=== PATIENT | male | born 1995 | race African-American/Black ===

== ENCOUNTER 2023-02-14 13:59 | Inpatient (IN) | payer BC, MEDICAID, SELFPAY ==
[2023-02-14] VITALS (11 sets, daily range): BP systolic 83–150; BP diastolic 54–113; PULSE 76–138; RESP 11–20; TEMP 36.4–37.1; O2SAT 98–100; BMI 22.8
--- NOTE | ~2023-02-14 | XR_ITS ---
EXAM: XR knee RT min 4V, XR knee LT min 4V DATE: 02/14/2023 14:45 (accession [id number]), 02/14/2023 14:43 (accession [id number]) HISTORY: effusion . COMPARISON: None available. FINDINGS: Severely decreased mineralization. Small left and moderate right volume joint fluid collec tions. Subcutaneous edema. Distal quadriceps thickening on the left. No acute fracture. No dislocatio n. Large area of heterotopic bone formation medial to the distal aspect of the left femur. Ossific de nsity medial to the right medial tibial plateau, likely old avulsion fracture fragment (reverse Segon d lesion). IMPRESSION: Severe osteopenia. Moderate right and small left joint effusions. Distal left quadriceps tendon thickening, may reflect partial tear. Large area of heterotopic bone formation medial to the distal left femur, which can be a source of ch ronic pain. No acute fracture or dislocation. Reviewed, dictated and finalized at location K. IMPRESSION: Severe osteopenia. Moderate right and small left joint effusions. Distal left quadriceps tendon thickening, may reflect partial tear. Large area of heterotopic bone formation medial to the distal left femur, which can be a source of chronic pain. No acute fracture or dislocation.
--- NOTE | ~2023-02-14 | XR_ITS ---
Supine and upright views of the abdomen Clinical history: Abdominal pain Findings: Bowel gas pattern is nonspecific. Moderate stool noted. No evidence for obstruction or free air. No abnormal mass lesion or calcification is seen. Moderate degenerative change of both hips not ed. Impression: Nonspecific bowel gas pattern. Moderate stool could reflect constipation. Reviewed, dictated and finalized at [facility]. Impression: Nonspecific bowel gas pattern. Moderate stool could reflect constipation.
--- NOTE | ~2023-02-14 | CT_ITS ---
EXAMINATION: CT abdomen pelvis w con DATE: 02/14/2023 15:52 INDICATION: sepsis, sacral ulcer TECHNIQUE: Computed tomography (CT) of the abdomen and pelvis was performed with 100 mL Omnipaque-350 intravenous contrast. Automated exposure control and iterative reconstruction technique were employe d. The dose-length product was 472.75 mGy-cm. COMPARISON: None. FINDINGS: Lower thorax: Bibasilar scar/atelectasis Liver: Normal. Biliary/Gallbladder: Cholelithiasis. No bile duct dilation. Pancreas: No mass or duct dilation. Spleen: Normal. Adrenals:No mass. Kidneys: No suspicious mass or obstructing calcification. Mild bilateral pelviectasis and ureterectas is, with urothelial enhancement. Suggestion of mild patchy bilateral renal enhancement. GI tract: Mild distal esophageal and gastric wall edema. No small bowel dilation. The rectum is dilat ed to 6.6 cm by formed stool, without wall thickening or surrounding inflammatory change. Normal appe ndix. Mesentery/Peritoneum: No mass or free air. Mild perihepatic fluid. Moderate fluid in the bilateral pa racolic gutters and presacral space, with mesenteric edema and prominent mesenteric lymph nodes. Retroperitoneum: No mass. Pelvis: Moderate bladder wall edema with urothelial enhancement. The bladder is decompressed by Aguilar catheter. Soft Tissues: Posterior skin defect overlying the left sacrum with surrounding induration that extend s to the bone. Bilateral inguinal lymphadenopathy. Bones: Suggestion of osseous sclerosis deep to the decubitus ulcer, without definite active erosion, although this determination is limited without comparison studies. IMPRESSION: Mild esophagitis/gastritis. Cholelithiasis without significant gallbladder inflammation. CT findings suggestive of cystitis, with ascending infection, mild bilateral hydronephrosis, and bila teral pyelonephritis. Moderate ascites. Left sacral decubitus ulcer, with sclerosis of the adjacent bone which may represent old healed or ch ronic osteomyelitis. Comparison to outside studies would be helpful. Bilateral inguinal lymphadenopathy. Fecal impaction, without CT findings of stercoral colitis. Reviewed, dictated and finalized at location K. IMPRESSION: Mild esophagitis/gastritis. Cholelithiasis without significant gallbladder inflammation. CT findings suggestive of cystitis, with ascending infection, mild bilateral hy dronephrosis, and bilateral pyelonephritis. Moderate ascites. Left sacral decubitus ulcer, with sclerosis of the adjacent bone which may repr esent old healed or chronic osteomyelitis. Comparison to outside studies would be helpful. Bilateral inguinal lymphadenopathy. Fecal impaction, without CT findings of stercoral colitis.
--- NOTE | ~2023-02-14 | US_ITS ---
EXAMINATION: US venous doppler [facility] DATE: 02/16/2023 10:53 INDICATION: Lower limb swelling. TECHNIQUE: Grayscale ultrasound images without and with compression and Doppler ultrasound images of the bilateral lower extremity veins were obtained. COMPARISON: CT abdomen and pelvis 02/14/2023 FINDINGS: The visualized portions of right femoral vein, popliteal vein, peroneal veins, and posterior tibial v eins are patent. The right common femoral vein and profunda femoral vein are obscured by bandages. The visualized portions of left common femoral vein, profunda femoral vein, femoral vein, popliteal v ein, peroneal veins, posterior tibial veins, and greater saphenous vein outflow are patent. IMPRESSION: 1. No deep venous thrombosis. Reviewed, dictated and finalized at location A.
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
--- NOTE | 2023-02-14 14:24 | ECG_ITS ---
Measurements Intervals [place] Rate: 114 P: 56 WV: 100 QRS: 40 QRSD: 86 T: 43 QT: 310 QTc: 427 Interpretive Statements SINUS TACHYCARDIA WITH SHORT [place] INTERVAL POSSIBLE LEFT ATRIAL ENLARGEMENT ABNORMAL ECG NO PREVIOUS ECG AVAILABLE FOR COMPARISON Electronically Signed On 02-15-2023 0:09:40 CDT by Doroteo Shah D.O.
[2023-02-14] MEDS: SODIUM CHLORIDE 0.9% IV 1,000 ML 999 ML IV CONT ×2 (14:37→16:48)
[2023-02-14] MEDS: Please add drug allergy info to patient profile. 1 EACH XX (14:38)
[2023-02-14] MEDS: ONDANSETRON INJ 4 MG/2 ML VIAL IV PUSH ×2 (14:38→20:00)
[2023-02-14 14:49] LABS: Basophils Absolute Auto 0.1 K/mm3 (0.0-0.1); Basophils Percent Auto 0.6 % (0.2-1.2); Eosinophils Absolute Auto 0.1 K/mm3 (0-0.3); Eosinophils Percent Auto 0.4 % (0-4.4); Hematocrit 41.6 % (42.0-52.0); Immature Granulocyte Absolute 0.12 K/mm3 (0.00-0.031); Immature Granulocyte Percent A 0.5 % (0-0.5); Lymphocytes Absolute Auto 1.34 K/mm3 (0.9-3.2); Lymphocytes Percent Auto 5.9 % (18.3-44.2); Mean Corpuscular HGB Conc 33.7 g/dl (32-36); Mean Corpuscular Hemoglobin 22.6 pg (26-34); Mean Corpuscular Volume 67.2 fl (80-100); Mean Platelet Volume 9.3 fl (7.4-10.4); Monocytes Absolute Auto 2.3 K/mm3 (0.1-0.6); Monocytes Percent Auto 10.2 % (2.6-8.5); Neutrophils Absolute Auto 18.6 K/mm3 (1.3-6.7); Neutrophils Percent Auto 82.4 % (45.5-73.1); Nucleated Red Blood Cells Perc 0.1 % (0.0-0.2); Platelet Count Result 513 k/mm3 (150-375); Red Blood Count 6.19 M/mm3 (4.6-6.20); White Blood Count 22.6 K/mm3 (4.5-10.0)
[2023-02-14 14:55] LABS: Appearance Urine Turbid (Clear); Bacteria Urine 4+ /hpf; Bilirubin Urine Negative (Negative); Blood Urine 3+ (Negative); Color Urine Yellow (Yellow); Glucose Urine UA Negative (Negative); Ketones Urine Negative (Negative); Leukocyte Esterase Ur 3+ LEU/UL (Negative); Nitrate Urine Negative (Negative); Non Pathogenic Casts 0-2; Protein Urine 2+ mg/dL (Negative); RBC Urine 51-100 /hpf (0-2); Specific Grav Ur 1.007 (1.001-1.035); Squamous Epithelial Cell Urine None seen /hpf (Few); Urobilinogen Urine 0.2 mg/dL (<2.0); WBC Urine >100 /hpf; pH Urine 5.5 (5.0-9.0)
[2023-02-14 14:58] LABS: Anisocytosis 1+ (NORMAL); Microcytosis 1+ (NORMAL); Platelet Estimate Increased (Adequate); Target Cells 2+ (NORMAL)
[2023-02-14 14:59] LABS: Ovalocytes 1+ (NORMAL); Schistocytes None Seen (NORMAL)
[2023-02-14 15:00] LABS: Add Urine Microscopic? YES; INR 1.1; Prothrombin Time 14.4 Seconds (11.1-14.7)
[2023-02-14 15:01] LABS: Partial Thromboplastin Time 29.3 SECONDS (22.3-36.8)
[2023-02-14 15:07] LABS: Alanine Aminotransferase 24 U/L (6-50); Albumin Level 3.8 g/dL (3.5-5.1); Alkaline Phosphatase 131 U/L (38-126); Anion Gap 7 mmol/L (8-16); Aspartate Amino Transferase 31 U/L (17-59); Bilirubin,Total 0.9 mg/dL (0.2-1.3); Blood Urea Nitrogen 17 mg/dL (9-20); Calcium 9.8 mg/dL (8.4-10.2); Carbon Dioxide 31 mmol/L (22-30); Chloride 99 mmol/L (98-107); Estimated CRCL calculation 102 ml/min; Estimated Glomerular Filt Rate > 60; Glucose 123 mg/dL (65-110); Lipase 33 U/L (23-300); Potassium 4.6 mmol/L (3.4-5.0); Sodium 137 mmol/L (137-145)
[2023-02-14 15:08] LABS: Lactic Acid Reflex 3.1 mmol/L (0.7-2.0)
[2023-02-14] MEDS: PIPERACILLN/TAZ 3.375GM/NS50ML 3.375 GM/50 ML BAG IVPB (15:20)
[2023-02-14] MEDS: ACETAMINOPHEN 500 MG TABLET 1000 MG PO (15:22)
[2023-02-14 15:24] LABS: CRP 14.8 mg/dL (<1.0)
[2023-02-14] MEDS: VANCOMYCIN 1,250 MG/NS 250 ML 1,250 MG/250 ML BAG 166.67 MG IVPB (15:53)
[2023-02-14 15:57] LABS: Influenza A QL RT-PCR Negative (Negative); Influenza B QL RT-PCR Negative (Negative); SARS-CoV-2 RNA PCR Negative (Negative)
[2023-02-14 17:47] LABS: Reflex Lactic Acid Yes or No Add Lactic
[2023-02-14 18:27] LABS: Lactic Acid 1.2 mmol/L (0.7-2.0)
--- NOTE | 2023-02-14 18:49 | ADMGEN ---
This patient, Krista Cook, was admitted to Intensive Care Unit-7 at 1849. Patient/family oriented to hospital policies and general routines including ID bracelet, bed and alarms, visiting hours, pain management, procedures, bathroom and other care routines, personal items, smoking policy, room service/diet, and visiting hours. Information on how to activate the Rapid Response Team has been discussed. Patient/Family are encouraged to report perceived risks to care and to ask questions if they do not understand what they are told or what they should do.
[2023-02-14] MEDS: SODIUM CHLORIDE 0.9% IV 1,000 ML 125 ML IV CONT (20:00)
--- NOTE | 2023-02-14 20:00 | PC.NURSE ---
This patient, Krista Cook, was admitted to Intensive Care Unit-7 @1855. Patient/family oriented to hospital policies and general routines including ID bracelet, bed and alarms, visiting hours, pain management, procedures, bathroom and other care routines, personal items, smoking policy, room service/diet, and visiting hours. Information on how to activate the Rapid Response Team has been discussed. Patient/Family are encouraged to report perceived risks to care and to ask questions if they do not understand what they are told or what they should do.
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
[2023-02-14] MEDS: HYDROcodone/acetaminophen (*CRX) 10-325 MG TABLET 1 TAB PO (21:50)
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
[2023-02-14] MEDS: PREGABALIN (*CRX) 50 MG CAPSULE 100 MG PO (22:51)
[2023-02-14] MEDS: APIXABAN 2.5 MG TABLET PO (22:52)
[2023-02-14] MEDS: BACLOFEN 5 MG TABLET PO (22:52)
[2023-02-14] MEDS: DULoxetine HCL 60 MG CAPSULE.DR PO (22:53)
[2023-02-14] MEDS: MIRTAZAPINE 15 MG TABLET PO (22:55)
[2023-02-14] MEDS: MIDODRINE HCL 2.5 MG TABLET 5 MG PO (23:15)
[2023-02-15] VITALS (35 sets, daily range): BP systolic 64–146; BP diastolic 39–94; PULSE 56–103; RESP 11–18; TEMP 36.3–37.1; O2SAT 95–100; BMI 23.9
--- NOTE | 2023-02-15 | ECHO_ITS ---
Patient Info Name: Krista Cook Age: 27 years : 1995 Gender: Male Ht: 73 in Wt: 181 lbs BSA: 2.06 m2 HR: 89 bpm BP: 67 / 39 mmHg Heart Rhythm: Sinus Rhythm Technical Quality: Fair Exam Date: 02/15/2023 11:29 AM Exam Location: [facility] Pulmonary Patient Status: Inpatient Admit Date: 02/14/2023 Staff Ordering Physician: Rolando Sprague MD Improvement Advisor: Lisa Singh RDCS Attending Provider: Kirk Saxena MD Exam Type: CA echo dop color flow w con Study Info Indications - Lower extremity edema, ascites Complete two-dimensional, color flow and Doppler transthoracic echocardiogram is performed with contrast to opacify the left ventricle and to improve the deliniation of the left ventricle endocardial borders. Contrast/Agitated Saline Contrast/Ag. Saline: Definity Amount: 2.00 ml Administered By: Lisa Singh RDCS Existing IV Access: Yes IV Access Condition: patent with no signs of infiltration Summary 1. Essentially unremarkable 2D/Doppler echocardiogram. 2. No findings which explains ascites/edema. Left Ventricular Outflow Tract Name Value Normal LVOT 2D LVOT Diameter 2.31 cm LVOT Doppler LVOT Peak Gradient 4 mmHg LVOT Mean Gradient 2 mmHg LVOT VTI 17.71 cm LVOT VTI/AV VTI Ratio 0.85 LVOT Stroke Volume 74.11 ml LVOT CO 6.49 l/min LVOT CI 3.15 L/min/m2 Pulmonic Valve Name Value Normal RVOT Doppler RVOT Peak Gradient 2 mmHg PV Doppler PV Peak Gradient 5 mmHg Mitral Valve Name Value Normal MV Doppler MV Decel [place] 910.34 cm/s2 MV PHT 0 s MV Area (PHT) 7.27 cm2 4.00-5.00 MV Diastolic Function MV E Peak Velocity 94.99 cm/s MV A Peak Velocity 85.14 cm/s MV E/A 1.12 MV Decel Time 0 s MV Annular TDI MV E/e' (Septal) 7.75 <=8.00 MV E/e' (Lateral) 8.53 <=8.00 MV E/e' (Average) 8.14 Tricuspid Valve Name Value Normal
--- NOTE | 2023-02-15 00:05 | PC.NURSE ---
hydrocodone administered during downtime for a pain of 8/10.
[2023-02-15] MEDS: oxyCODONE HCL (*CRX) 5 MG TAB IR 10 MG PO (00:17)
[2023-02-15] MEDS: SODIUM CHLORIDE 0.9% IV 1,000 ML 125 ML IV CONT ×3 (03:45→17:37)
[2023-02-15] MEDS: SODIUM CHLORIDE 0.9% IV 1,000 ML 999 ML IV CONT (03:49)
[2023-02-15] MEDS: HYDROcodone/acetaminophen (*CRX) 10-325 MG TABLET 1 TAB PO (04:43)
[2023-02-15] MEDS: VANCOMYCIN 1,250 MG/NS 250 ML 1,250 MG/250 ML BAG 166.67 MG IVPB ×2 (05:00→16:10)
[2023-02-15 07:22] LABS: Basophils Absolute Auto 0.1 K/mm3 (0.0-0.1); Basophils Percent Auto 0.5 % (0.2-1.2); Eosinophils Absolute Auto 0.6 K/mm3 (0-0.3); Eosinophils Percent Auto 4.5 % (0-4.4); Hematocrit 27.9 % (42.0-52.0); Hemoglobin 9.4 g/dL (14.0-18.0); Immature Granulocyte Absolute 0.09 K/mm3 (0.00-0.031); Immature Granulocyte Percent A 0.6 % (0-0.5); Lymphocytes Absolute Auto 1.84 K/mm3 (0.9-3.2); Lymphocytes Percent Auto 12.8 % (18.3-44.2); Mean Corpuscular HGB Conc 33.7 g/dl (32-36); Mean Corpuscular Hemoglobin 22.6 pg (26-34); Mean Corpuscular Volume 67.1 fl (80-100); Mean Platelet Volume 9.5 fl (7.4-10.4); Monocytes Absolute Auto 1.5 K/mm3 (0.1-0.6); Monocytes Percent Auto 10.3 % (2.6-8.5); Neutrophils Absolute Auto 10.2 K/mm3 (1.3-6.7); Neutrophils Percent Auto 71.3 % (45.5-73.1); Platelet Count Result 427 k/mm3 (150-375); Red Blood Count 4.16 M/mm3 (4.6-6.20); Red Cell Distribution Width 18.8 % (11.5-14.5); White Blood Count 14.4 K/mm3 (4.5-10.0)
[2023-02-15 07:25] LABS: Lactic Acid Reflex 0.7 mmol/L (0.7-2.0)
[2023-02-15 07:26] LABS: Alanine Aminotransferase 17 U/L (6-50); Albumin Level 2.6 g/dL (3.5-5.1); Alkaline Phosphatase 79 U/L (38-126); Anion Gap 0 mmol/L (8-16); Aspartate Amino Transferase 22 U/L (17-59); Bilirubin,Total 0.5 mg/dL (0.2-1.3); Blood Urea Nitrogen 12 mg/dL (9-20); Calcium 8.4 mg/dL (8.4-10.2); Carbon Dioxide 28 mmol/L (22-30); Chloride 106 mmol/L (98-107); Estimated CRCL calculation 174 ml/min; Estimated Glomerular Filt Rate > 60; Glucose 94 mg/dL (65-110); Magnesium 1.7 mg/dL (1.6-2.3); Phosphorus 4.3 mg/dL (2.5-4.5); Potassium 3.6 mmol/L (3.4-5.0); Sodium 134 mmol/L (137-145)
[2023-02-15 07:44] LABS: Platelet Estimate Increased (Adequate)
[2023-02-15 07:45] LABS: Anisocytosis 1+ (NORMAL); Poikilocytosis 1+ (NORMAL); Schistocytes None Seen (NORMAL); Target Cells 2+ (NORMAL)
[2023-02-15] MEDS: NOREPINEPHRINE 8 MG/D5W 250 ML 8 MG/250 ML BAG 9.38 MG IV CONT (09:00)
--- NOTE | 2023-02-15 09:50 | WPDPROCEDUR ---
Procedures Central Line Placement Right Femoral: Central Line Date: 02/15/23 Central Line Time: 09:00 Discussed w/ the patient/family/POA,the placement of a central venous catheter, including its clinical necessity/indication & associated potential risks, benifits and alternatives.: Yes The patient/family/POA understand(s) and acknowledge(s) the need to proceed with central venous catheter insertion as an important element of the patient's clinical management.: Yes Consent: I have discussed with the patient the non-emergent placement of a central venous catheter, including its clinical necessity/indication and associated potential risks and complications. The patient and/or surrogate understand(s) and acknowledge(s) the need to proceed with central venous catheter insertion as an important element of the patient's clinical management. Patient initially refused central line and wanted a PICC line. I discussed pros and cons of each and patient later agreed for femoral central venous catheter as he felt that he could not feel pain at that site Time Out Performed: Yes Patient Position: supine Patient placed on monitor/pulse ox: Yes Provider Prep: mask, sterile gown, sterile gloves, Max. sterile barrier precautions, cap and hand hygiene with conventional soap/water or alcohol based hand rub Central line prep: Povidone-Iodine 1% Sterile US Technique with sterile gel/sterile probe covers: Yes Central line lumen inserted: triple Length (cm): 16 Depth of Insertion (cm): 16 Post Procedure: sutured in place, good blood return, all ports aspirated, flushed, capped, transparent dressing and aseptic technique maintained throughout procedure Patient tolerated procedure: well Complications: none
--- NOTE | 2023-02-15 09:52 | WPDCNINT ---
Assessment and Plan Assessment and plan (1) Septic shock: Code(s): A41.9 - Sepsis, unspecified organism; R65.21 - Severe sepsis with septic shock Status: Acute Assessment and Plan: Septic shock secondary to pyelonephritis and possible infection of sacral decubitus ulcer Blood and urine cultures have been sent and are pending Aguilar catheter was changed in the ER Patient has received significant amount IV fluids bolus and will continue IV maintenance fluid Blood pressure still low. Central venous catheter placed and and I started patient on Levophed. Continue Levophed titration to maintain mean arterial pressure Patient does have low blood pressure at baseline and is on midodrine as an outpatient Change Zosyn to meropenem continue vancomycin. General surgery has been consulted patient will be going to operating room for debridement Urology consult IMPRESSION: Mild esophagitis/gastritis. Cholelithiasis without significant gallbladder inflammation. CT findings suggestive of cystitis, with ascending infection, mild bilateral hydronephrosis, and bilateral pyelonephritis. Moderate ascites. Left sacral decubitus ulcer, with sclerosis of the adjacent bone which may represent old healed or chronic osteomyelitis. Comparison to outside studies would be helpful. Bilateral inguinal lymphadenopathy. Fecal impaction, without CT findings of stercoral colitis (2) Constipation: Code(s): K59.00 - Constipation, unspecified Status: Acute Assessment and Plan: Currently NPO for possible surgery MiraLax, bisacodyl (3) Paraplegia: Code(s): G82.20 - Paraplegia, unspecified Status: Acute (4) Pyelonephritis: Code(s): N12 - Tubulo-interstitial nephritis, not specified as acute or chronic Status: Acute Assessment and Plan: See above (5) Decubitus ulcer of sacral region, stage 4: Code(s): L89.154 - Pressure ulcer of sacral region, stage 4 Status: Acute Assessment and Plan: Patient has a large decubitus ulcer which was examined in the ER and is large stage IV unstageable with foul-smelling purulent discharge. General surgery has been consulted Patient is scheduled for debridement in the operating room today (6) Decubitus ulcer, heel: Code(s): L89.609 - Pressure ulcer of unspecified heel, unspecified stage Status: Acute Assessment and Plan: Seen by wound care (7) Lower extremity edema: Code(s): R60.0 - Localized edema Status: Acute Assessment and Plan: Venous Doppler bilateral ordered to rule out DVT Check echo (8) Esophagitis: Code(s): K20.90 - Esophagitis, unspecified without bleeding Status: Acute Assessment and Plan: Start PPI Plan DVT prophylaxis -Carola is on hold Nutrition -NPO Code Status - Full Code Total Critical Care Time - 35 minutes Due to a high probability of clinically significant, life threatening deterioration, the patient required my highest level of preparedness to intervene emergently and I personally spent this critical care time directly and personally managing the patient. This critical care time included obtaining a history; examining the patient; pulse oximetry; ordering and review of studies; arranging urgent treatment with development of a management plan; evaluation of patient's response to treatment; frequent reassessment; and discussions with other providers. It was exclusive of separately billable procedures and treating other patients and teaching time. Please see Assessment and Plan section and the rest of the note for further information on patient assessment and treatment [facility] [facility] Consult Note Consult date: 02/15/23 Reason for consult: Sepsis HPI: Krista Cook is a 27 year old male with past medical history of paraplegia from past in chart Hold 7 months ago who is a resident of [facility] was sent from [facility] by EMS with nausea vomiting and chills. Alex
[2023-02-15] MEDS: PANTOPRAZOLE SODIUM IV 40 MG VIAL IV PUSH ×2 (10:00→19:46)
[2023-02-15] MEDS: ALBUMIN HUMAN 5% 25 GM/500 ML BTL IV CONT (10:00)
[2023-02-15] MEDS: BISACODYL 10 MG SUPPOSITORY RECTAL (10:00)
[2023-02-15] MEDS: MEROPENEM 1 GM in SODIUM CHLORIDE 0.9% IV 100 ML 200 ML IVPB ×3 (10:46→22:50)
[2023-02-15] MEDS: KCL 40 MEQ/WATER 100 ML 100 ML 25 ML IVPB (10:46)
[2023-02-15] MEDS: SILVERGEL (ELTA) 45 ML 1 APPLIC TOPICAL ×2 (11:02→15:02)
[2023-02-15] MEDS: PERFLUTREN LIPID MICROSPHERES 1.5 ML VIAL DILUTED TO 10 ML TOTAL VOLUME IV PUSH (11:50)
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
[2023-02-15] MEDS: MIDODRINE HCL 10 MG TABLET PO ×2 (14:00→17:37)
[2023-02-15] MEDS: CENTRAL LINE FLUSH 10 ML IV PUSH ×2 (15:00→21:16)
[2023-02-15] MEDS: ALBUMIN HUMAN 25% 25 GM/100 ML 100 ML IVPB ×2 (15:00→19:45)
--- NOTE | 2023-02-15 17:36 | PC.NURSE ---
Yayo arthur applied per patient request at 1735 for complaints of shivering. temp 97.5 degrees Fahrenheit.
--- NOTE | 2023-02-15 18:38 | ECG_ITS ---
Measurements Intervals [place] Rate: 85 P: 72 RI: 167 QRS: 49 QRSD: 90 T: 44 QT: 381 QTc: 454 Interpretive Statements SINUS RHYTHM WITH OCCASIONAL ATRIAL PREMATURE COMPLEXES (SOME NONCONDUCTED) COMPARED TO ECG 02/14/2023 14:49:08 THE RATE IS SLOWER Electronically Signed On 02-16-2023 14:02:43 CDT by Isa Melissa M.D.
[2023-02-15 18:50] LABS: Glucose Point of Care 116 mg/dl (65-105)
[2023-02-15] MEDS: ACETAMINOPHEN 325 MG TABLET 650 MG PO (19:11)
[2023-02-15 19:33] LABS: Anion Gap 3 mmol/L (8-16); Blood Urea Nitrogen 9 mg/dL (9-20); Calcium 9.1 mg/dL (8.4-10.2); Carbon Dioxide 31 mmol/L (22-30); Chloride 107 mmol/L (98-107); Estimated CRCL calculation 205 ml/min; Estimated Glomerular Filt Rate > 60; Glucose 102 mg/dL (65-110); Magnesium 1.7 mg/dL (1.6-2.3); Potassium 4.1 mmol/L (3.4-5.0); Sodium 141 mmol/L (137-145)
[2023-02-15] MEDS: MORPHINE SULFATE (*CRX) 4 MG/ML INJ IV PUSH (21:36)
[2023-02-15] MEDS: HYDROcodone/acetaminophen (*CRX) 5-325 MG TABLET 1 TAB PO (23:02)
[2023-02-16] VITALS (11 sets, daily range): BP systolic 93–141; BP diastolic 46–86; PULSE 75–105; RESP 14–21; TEMP 36.7–37.2; O2SAT 97–99
[2023-02-16] MEDS: ALBUMIN HUMAN 25% 25 GM/100 ML 100 ML IVPB ×2 (00:58→08:16)
[2023-02-16] MEDS: SODIUM CHLORIDE 0.9% IV 1,000 ML 125 ML IV CONT (00:58)
[2023-02-16] MEDS: MORPHINE SULFATE (*CRX) 4 MG/ML INJ IV PUSH ×6 (02:00→20:46)
[2023-02-16] MEDS: HYDROcodone/acetaminophen (*CRX) 5-325 MG TABLET 1 TAB PO ×4 (04:07→22:36)
[2023-02-16 04:16] LABS: Hematocrit 23.9 % (42.0-52.0); Mean Corpuscular HGB Conc 33.5 g/dl (32-36); Mean Corpuscular Hemoglobin 22.3 pg (26-34); Mean Corpuscular Volume 66.6 fl (80-100); Mean Platelet Volume 8.9 fl (7.4-10.4); Platelet Count Result 404 k/mm3 (150-375); Red Blood Count 3.59 M/mm3 (4.6-6.20); Red Cell Distribution Width 18.5 % (11.5-14.5); White Blood Count 9.5 K/mm3 (4.5-10.0)
[2023-02-16 04:33] LABS: Alanine Aminotransferase 15 U/L (6-50); Albumin Level 3.3 g/dL (3.5-5.1); Alkaline Phosphatase 69 U/L (38-126); Anion Gap 1 mmol/L (8-16); Aspartate Amino Transferase 22 U/L (17-59); Bilirubin,Total 0.5 mg/dL (0.2-1.3); Blood Urea Nitrogen 9 mg/dL (9-20); Calcium 8.6 mg/dL (8.4-10.2); Carbon Dioxide 29 mmol/L (22-30); Chloride 106 mmol/L (98-107); Estimated CRCL calculation 250 ml/min; Estimated Glomerular Filt Rate > 60; Glucose 97 mg/dL (65-110); Magnesium 1.6 mg/dL (1.6-2.3); Potassium 3.5 mmol/L (3.4-5.0); Sodium 136 mmol/L (137-145)
[2023-02-16] MEDS: MEROPENEM 1 GM in SODIUM CHLORIDE 0.9% IV 100 ML 200 ML IVPB ×3 (04:57→20:39)
[2023-02-16] MEDS: CENTRAL LINE FLUSH 10 ML IV PUSH ×4 (04:58→20:39)
[2023-02-16] MEDS: VANCOMYCIN 1,250 MG/NS 250 ML 1,250 MG/250 ML BAG 166.67 MG IVPB (05:13)
--- NOTE | 2023-02-16 05:15 | PHAR ---
VANCOMYCIN LEVEL 02/16/23 AT 0400 = 10. NO CHANGE TO DOSING. RECHECK LEVEL 0400 02/19/23.
[2023-02-16] MEDS: MIDODRINE HCL 10 MG TABLET PO ×3 (08:16→17:50)
[2023-02-16] MEDS: BISACODYL 10 MG SUPPOSITORY RECTAL (08:16)
[2023-02-16] MEDS: PANTOPRAZOLE SODIUM IV 40 MG VIAL IV PUSH ×2 (08:17→20:39)
[2023-02-16] MEDS: DULoxetine HCL 60 MG CAPSULE.DR PO (08:17)
[2023-02-16] MEDS: POTASSIUM CHLORIDE 20 MEQ ER TABLET 40 MEQ PO (08:17)
[2023-02-16] MEDS: PREGABALIN (*CRX) 50 MG CAPSULE 100 MG PO ×2 (08:17→20:39)
[2023-02-16] MEDS: SILVERGEL (ELTA) 45 ML 1 APPLIC TOPICAL (08:18)
[2023-02-16 08:40] LABS: Immature Reticulocyte Fraction 27.4 % (3.0-15.9); Reticulocyte Hemoglobin Conten 22.8 pg (28.2-35.7); Reticulocytes Absolute 0.06 M/mm3 (0.02-0.1)
[2023-02-16 08:49] LABS: Lactate Dehydrogenase 132 U/L (120-246)
[2023-02-16 08:56] LABS: Transferrin 99 mg/dL (206-381)
[2023-02-16 09:11] LABS: Iron 23 ug/dL (49-181)
[2023-02-16 09:21] LABS: Percent Iron Saturation 11 % (20-50)
--- NOTE | 2023-02-16 09:48 | WPDINTPN ---
Progress Note: A&P Assessment and Plan (1) Septic shock: Code(s): A41.9 - Sepsis, unspecified organism; R65.21 - Severe sepsis with septic shock Status: Acute Assessment and Plan: Septic shock secondary to pyelonephritis Sacral decubitus wound was examined by general surgery and felt not to be infected. Although CT scan suggest chronic osteomyelitis of the bone Blood culture 07/20 is growing Gram-positive cocci in pairs and Gram-negative bacilli urine cultures have been sent and are pending Aguilar catheter was changed in the ER Patient has received significant amount IV fluids bolus and will discontinue IV maintenance fluid Blood pressure improved. 02/15 Central venous catheter placed and and I started patient on Levophed which now has been weaned off. Patient does have low blood pressure at baseline and is on midodrine as an outpatient which will be continued Continue meropenem and vancomycin. General surgery and Urology following IMPRESSION: Mild esophagitis/gastritis. Cholelithiasis without significant gallbladder inflammation. CT findings suggestive of cystitis, with ascending infection, mild bilateral hydronephrosis, and bilateral pyelonephritis. Moderate ascites. Left sacral decubitus ulcer, with sclerosis of the adjacent bone which may represent old healed or chronic osteomyelitis. Comparison to outside studies would be helpful. Bilateral inguinal lymphadenopathy. Fecal impaction, without CT findings of stercoral colitis (2) Constipation: Code(s): K59.00 - Constipation, unspecified Status: Acute Assessment and Plan: Continue MiraLax, bisacodyl (3) Paraplegia: Code(s): G82.20 - Paraplegia, unspecified Status: Acute Assessment and Plan: On rotation bed, with waffle boots on both feet (4) Pyelonephritis: Code(s): N12 - Tubulo-interstitial nephritis, not specified as acute or chronic Status: Acute Assessment and Plan: See above (5) Decubitus ulcer of sacral region, stage 4: Code(s): L89.154 - Pressure ulcer of sacral region, stage 4 Status: Acute Assessment and Plan: Patient has a large decubitus ulcer which was examined by general surgery and not appear to be infected as per general surgeon. No plan for debridement at this time. Recommends continued antibiotic therapy. Patient will eventually need a graft General surgery following (6) Decubitus ulcer, heel: Code(s): L89.609 - Pressure ulcer of unspecified heel, unspecified stage Status: Acute Assessment and Plan: Seen by wound care. Local wound care (7) Lower extremity edema: Code(s): R60.0 - Localized edema Status: Acute Assessment and Plan: Venous Doppler bilateral ordered to rule out DVT Normal echo Compression stocking (8) Esophagitis: Code(s): K20.90 - Esophagitis, unspecified without bleeding Status: Acute Assessment and Plan: Continue PPI Plan DVT prophylaxis -Eliquis will be resumed Nutrition -regular diet with supplements Code Status - Full Code Transfer out of ICU today Subjective Date/time seen: 02/16/23 Overnight events reviewed. Afebrile On room air Off Levophed Tolerating p.o. diet Other vitals acceptable Patient states he did not sleep well overnight and denies any other complaint. He had 2-3 bowel movements. Patient denies fever, chest pain, shortness of breath, cough, nausea vomiting, abdominal pain diarrhea, headache or constipation.. All other systems were reviewed and were negative Review of Systems Review of Systems: All systems reviewed & are unremarkable except as noted in HPI and below (HPI) Exam Narrative: General: Pt is alert awake and in NAD Lungs/Chest: Trachea central Clear BS B/L, No crackles or wheezing. Cardiac: RRR. Normal S1 S2. No murmurs Circulation: Feet are warm Abdomen: Decreased bowel sounds.. Soft. NT. ND. Extremities: Bilateral edema : Fole
[2023-02-16 09:56] LABS: Folic Acid 12.6 ng/mL (2.76->20)
--- NOTE | 2023-02-16 11:51 | PCFNICU ---
ICU Rounding Note: Pt current nutrition is Regular. Last recorded weight is 81.7 kg. Bowel Motility:+BM reported 02/15 Labs Reviewed:Cr 0.4,Na 136, Alb 3.3 Meds Noted:Vancomycin, Suppository, Cymbalta. Skin: R heel: Unstageable, L heel: Stage III, Sacrum: Stage IV Additional Notes: Patient is tolerating regular diet with supplements of Alex BID and Ensure Enlive TID. Agree with diet orders. Following daily in ICU rounds. Monitoring diet advancement; plan of care; intakes, weights, wound healing every 7 days.
--- NOTE | 2023-02-16 16:22 | PM.PNGS ---
Progress Note: A&P Assessment and Plan (1) Decubitus ulcer of sacral region, stage 4: Code(s): L89.154 - Pressure ulcer of sacral region, stage 4 Status: Acute Assessment and Plan: Still has a small amount of non viable tissue at edges. There is a decent granulation base. Stool is being kept out of the wound fairly well. I discussed debridement of the nonviable tissue in the OR and application of allgraft and placement of wound vac to speed healing of the wound. He would like to proceed with doing that. Pt now off pressors so may consider OR on or Wednesday. Subjective Subjective Date/Time Seen: 02/16/23 16:22 Interval history: Pt downgraded to IMU status. No longer on pressors. Still on IV abx. Wound care nurses have assessed the pt's wounds. Sacral decub wound has yellowish drainage but good granulation base. Exam Skin: Other: Sacral decub wound approximately 10 x 5 x 1.5 cm. Good granulation base but some necrotic tissue at edge. No draining pus or cellulitis. Objective Data Vital Signs Vital Signs: Vital Signs - 24 hr 02/15/23 17:35 02/15/23 17:35 02/15/23 17:50 Temperature 36.4 C L 36.4 C L 36.4 C Pulse Rate Respiratory Rate Blood Pressure Pulse Oximetry Oxygen Delivery 02/15/23 18:05 02/15/23 18:20 02/15/23 18:00 Temperature 36.5 C 36.5 C Pulse Rate 61 Respiratory Rate 14 Blood Pressure 146/93 H Pulse Oximetry 98 Oxygen Delivery 02/15/23 18:35 02/15/23 19:03 02/15/23 18:00 Temperature 36.5 C 36.6 C Pulse Rate 85 Respiratory Rate Blood Pressure Pulse Oximetry Oxygen Delivery 02/15/23 19:04 02/15/23 20:00 02/15/23 20:00 Temperature 37.1 C 37.1 C Pulse Rate 78 75 Respiratory Rate 16 Blood Pressure 122/81 134/87 Pulse Oximetry 97 Oxygen Delivery 02/15/23 20:00 02/15/23 21:15 02/15/23 21:00 Temperature 36.9 C 36.9 C Pulse Rate 75 Respiratory Rate 16 Blood Pressure Pulse Oximetry 97 Oxygen Delivery Room Air 02/15/23 20:00 02/15/23 22:00 02/15/23 22:00 Temperature 37.0 C Pulse Rate 86 97 95 Respiratory Rate 18 Blood Pressure 110/64 Pulse Oximetry 97 Oxygen Delivery 02/16/23 00:00 02/16/23 00:00 02/16/23 00:00 Temperature 36.9 C 36.9 C Pulse Rate 101 H 79 Respiratory Rate 16 Blood Pressure 114/63 Pulse Oximetry 97 Oxygen Delivery 02/16/23 00:00 02/16/23 02:00 02/16/23 02:00 Temperature Pulse Rate 79 99 99 Respiratory Rate 16 17 Blood Pressure 112/63 Pulse Oximetry 97 97 Oxygen Delivery Room Air 02/16/23 04:00 02/16/23 04:00 02/16/23 04:00 Temperature 36.9 C 36.9 C Pulse Rate 96 96 Respiratory Rate 18 18 Blood Pressure 93/46 L Pulse Oximetry 98 98 Oxygen Delivery Room Air 02/16/23 04:00 02/16/23 06:00 02/16/23 06:00 Temperature Pulse Rate 99 102 H 103 H Respiratory Rate 21 H Blood Pressure 101/53 L Pulse Oximetry 97 Oxygen Delivery 02/16/23 08:42 02/16/23 08:00 02/16/23 08:00 Temperature 36.8 C Pulse Rate 79 79 Respiratory Rate 14 Blood Pressure 110/64 Pulse Oximetry 97 98 Oxygen Delivery Room Air 02/16/23 10:00 02/16/23 10:00 Temperature Pulse Rate 105 H 105 H Respiratory Rate 21 H Blood Pressure 95/60 L Pulse Oximetry 97 Oxygen Delivery Intake/Output Intake/Output: Intake & Output 02/13/23 02/14/23 02/15/23 02/16/23 23:59 23:59 23:59 23:59 Intake Total 2300 6675 3800 Output Total 4925 1850 Balance 2300 1750 1950 Meds/Results Medications: Active Medications Generic Name Dose Route Start Last Admin Trade Name Freq PRN Reason Stop Dose Admin Acetaminophen 650 mg 02/15/23 18:53 02/15/23 19:11 Acetaminophen 325 Mg Tablet PO 650 mg Q4H PRN Administration Pain or Fever Hydrocodone Bitart/Acetaminophen 1 tab 02/15/23 21:20 02/16/23 14:44 Hydrocodone/Acetaminophen (*Crx) 5-325 Mg Tablet PO 1 tab Q4H PRN
[2023-02-16] MEDS: VANCOMYCIN 1,250 MG/NS 250 ML 1,250 MG/250 ML BAG 166.7 MG IVPB (17:50)
[2023-02-16] MEDS: MIRTAZAPINE 15 MG TABLET PO (20:39)
[2023-02-16] MEDS: APIXABAN 2.5 MG TABLET PO (20:39)
[2023-02-17] VITALS (8 sets, daily range): BP systolic 98–134; BP diastolic 56–90; PULSE 56–90; RESP 16–18; TEMP 36.2–36.4; O2SAT 98–100
--- NOTE | 2023-02-17 00:20 | PC.NURSE ---
This patient, Krista Cook, was transferred to [[id number]] on 02/17/23 at 0015. Personal belongings sent with patient. Report given to [DEEPAK Jameson]. Appropriate documentation sent with patient.
[2023-02-17] MEDS: polyethylene glycoL 3350 17 GM POWD.PACK PO ×2 (00:54→20:16)
[2023-02-17] MEDS: VANCOMYCIN 1,250 MG/NS 250 ML 1,250 MG/250 ML BAG 166.7 MG IVPB ×2 (04:37→16:07)
[2023-02-17 04:44] LABS: Hematocrit 27.2 % (42.0-52.0); Hemoglobin 9.1 g/dL (14.0-18.0); Mean Corpuscular HGB Conc 33.5 g/dl (32-36); Mean Corpuscular Hemoglobin 22.4 pg (26-34); Mean Platelet Volume 8.9 fl (7.4-10.4); Platelet Count Result 448 k/mm3 (150-375); Red Blood Count 4.06 M/mm3 (4.6-6.20); Red Cell Distribution Width 18.5 % (11.5-14.5); White Blood Count 8.2 K/mm3 (4.5-10.0)
[2023-02-17 04:56] LABS: Alanine Aminotransferase 17 U/L (6-50); Albumin Level 3.6 g/dL (3.5-5.1); Alkaline Phosphatase 78 U/L (38-126); Anion Gap 2 mmol/L (8-16); Aspartate Amino Transferase 23 U/L (17-59); Bilirubin,Total 0.3 mg/dL (0.2-1.3); Blood Urea Nitrogen 14 mg/dL (9-20); Calcium 9.3 mg/dL (8.4-10.2); Carbon Dioxide 37 mmol/L (22-30); Chloride 100 mmol/L (98-107); Estimated CRCL calculation 205 ml/min; Estimated Glomerular Filt Rate > 60; Glucose 94 mg/dL (65-110); Magnesium 1.6 mg/dL (1.6-2.3); Potassium 4.3 mmol/L (3.4-5.0); Sodium 139 mmol/L (137-145)
[2023-02-17] MEDS: MEROPENEM 1 GM in SODIUM CHLORIDE 0.9% IV 100 ML 200 ML IVPB ×3 (06:16→20:14)
[2023-02-17] MEDS: CENTRAL LINE FLUSH 10 ML IV PUSH ×5 (06:17→20:26)
[2023-02-17] MEDS: MIDODRINE HCL 10 MG TABLET PO ×3 (10:04→16:07)
[2023-02-17] MEDS: PREGABALIN (*CRX) 50 MG CAPSULE 100 MG PO ×2 (10:04→20:13)
[2023-02-17] MEDS: DULoxetine HCL 60 MG CAPSULE.DR PO (10:05)
[2023-02-17] MEDS: SILVERGEL (ELTA) 45 ML 1 APPLIC TOPICAL (10:05)
[2023-02-17] MEDS: PANTOPRAZOLE SODIUM IV 40 MG VIAL IV PUSH ×2 (10:05→20:13)
[2023-02-17] MEDS: APIXABAN 2.5 MG TABLET PO ×2 (10:05→20:13)
[2023-02-17] MEDS: MORPHINE SULFATE (*CRX) 4 MG/ML INJ IV PUSH ×3 (10:57→20:24)
[2023-02-17] MEDS: BISACODYL 10 MG SUPPOSITORY RECTAL (12:58)
[2023-02-17] MEDS: ACETAMINOPHEN 325 MG TABLET 650 MG PO (12:59)
--- NOTE | 2023-02-17 13:35 | PM.IMPN ---
Progress Note: A&P Assessment and Plan (1) Septic shock: Code(s): A41.9 - Sepsis, unspecified organism; R65.21 - Severe sepsis with septic shock Status: Acute Assessment and Plan: Septic shock secondary to pyelonephritis CT abdomen pelvis positive for cystitis with ascending infection, left sacral decubitus ulcer with sclerosis of adjacent bone which may represent old healed or chronic osteomyelitis, and fecal impaction without findings of some stercoral colitis Sacral decubitus ulcer examined by General surgery and they did not feel like it was infected. Urine culture positive for Pseudomonas and blood culture in 1 bottle positive for Enterococcus and Pseudomonas. Aguilar catheter changed in the ER. IV fluids discontinued. 02/15/2023 central venous catheter placed and started patient on Levophed that has now been weaned off. Patient has low blood pressure at baseline and is on midodrine as an outpatient. Continue meropenem and vancomycin. Discussed case with ID pharmacist. General surgery and urology following. (2) Constipation: Code(s): K59.00 - Constipation, unspecified Status: Acute Assessment and Plan: Continue MiraLax, bisacodyl (3) Paraplegia: Code(s): G82.20 - Paraplegia, unspecified Status: Acute Assessment and Plan: On rotation bed, with waffle boots on both feet (4) Pyelonephritis: Code(s): N12 - Tubulo-interstitial nephritis, not specified as acute or chronic Status: Acute Assessment and Plan: See above (5) Decubitus ulcer of sacral region, stage 4: Code(s): L89.154 - Pressure ulcer of sacral region, stage 4 Status: Acute Assessment and Plan: Patient has a large decubitus ulcer which was examined by general surgery and not appear to be infected as per general surgeon. No plan for debridement at this time. continue antibiotic therapy. Patient will eventually need a graft General surgery following (6) Decubitus ulcer, heel: Qualifiers: Pressure injury stage: unspecified pressure injury stage Code(s): L89.609 - Pressure ulcer of unspecified heel, unspecified stage Status: Acute Assessment and Plan: Seen by wound care. Local wound care (7) Lower extremity edema: Code(s): R60.0 - Localized edema Status: Acute Assessment and Plan: Venous Doppler bilateral ordered to rule out DVT Normal echo Compression stocking (8) Esophagitis: Code(s): K20.90 - Esophagitis, unspecified without bleeding Status: Acute Assessment and Plan: Continue PPI Plan DVT prophylaxis -Eliquis will be resumed Nutrition -regular diet with supplements Code Status - Full Code Transfer out of ICU 02/16/23 Subjective Date/time seen: 02/17/23 13:35 Interval history: Patient doing okay today. He states that he is not felt feverish with body aches or chills since yesterday. He does complain of right arm pain and states that he has brachial plexus injury. Patient has no other complaints at this time. Blood cultures redrawn today waiting for sensitivities to return to adjust antibiotic therapy. Review of Systems Review of Systems: All systems reviewed & are unremarkable except as noted in HPI and below Exam Narrative: GENERAL: Comfortable, no acute distress HENMT: moist mucous membranes EYES: EOM intact b/l RESPIRATORY: clear to auscultation CARDIO: RRR GI: soft, nontender, bowel sounds present SKIN: no rashes EXTREMITIES: Bilateral Waffle boots, weakness and pain in the right arm Objective Data Vital Signs Vital Signs: Vital Signs - 24 hr 02/16/23 16:00 02/16/23 16:00 02/16/23 20:00 Temperature 99 F 98.1 F Pulse Rate 86 86 76 Respiratory Rate 21 H 18 Blood Pressure 133/82 141/86 H Pulse Oximetry 99 98 Oxygen Delivery 02/16/23 20:00 02/16/23 20:00 02/17/23 00:34 Temperature Pulse Rate 76 75 90 Respira
--- NOTE | 2023-02-17 14:21 | PM.PNGS ---
Progress Note: A&P Assessment and Plan (1) Decubitus ulcer of sacral region, stage 4: Code(s): L89.154 - Pressure ulcer of sacral region, stage 4 Status: Acute Assessment and Plan: We will proceed with debridement, application of allograft, and placement of wound VAC. Will plan for this coming Wednesday in the OR at about noon. He will need to keep the wound VAC in place until the following Wednesday at the very least. We will change the wound VAC dressing at that time and reassess the wound. If at all possible it would be best to continue having a wound VAC on the wound when he turns to a care facility. Subjective Subjective Date/Time Seen: 02/17/23 14:21 Interval history: Patient has been moved out of the ICU to [facility] floor. He is otherwise doing well. I discussed with him debridement of the sacral decubitus wound and placement of allograft and wound VAC. He is agreeable to the procedure. Exam Skin: Other: Sacral decubitus wound which is about 10cm in length by 5cm in width by 1.5cm in depth. There is excellent granulation tissue at the base. There is a small amount of nonviable tissue at the edges. There is no stool in the wound. Objective Data Vital Signs Vital Signs: Vital Signs - 24 hr 02/16/23 16:00 02/16/23 16:00 02/16/23 20:00 Temperature 37.2 C 36.7 C Pulse Rate 86 86 76 Respiratory Rate 21 H 18 Blood Pressure 133/82 141/86 H Pulse Oximetry 99 98 Oxygen Delivery 02/16/23 20:00 02/16/23 20:00 02/17/23 00:34 Temperature Pulse Rate 76 75 90 Respiratory Rate 18 Blood Pressure Pulse Oximetry 98 Oxygen Delivery Room Air 02/17/23 00:00 02/17/23 04:00 02/16/23 21:35 Temperature 36.4 C L Pulse Rate 75 71 Respiratory Rate 18 Blood Pressure 134/83 Pulse Oximetry 98 98 Oxygen Delivery Room Air 02/17/23 05:02 02/17/23 09:27 Temperature 36.3 C L 36.4 C Pulse Rate 73 56 L Respiratory Rate 18 16 Blood Pressure 133/90 98/56 L Pulse Oximetry 100 99 Oxygen Delivery Intake/Output Intake/Output: Intake & Output 02/14/23 02/15/23 02/16/2302/17/23 23:59 23:59 23:59 23:59 Intake Total 2304 2986 5450 1360 Output Total 6182 4307 4450 Balance 2300 1750 1150 -3090 Meds/Results Medications: Active Medications Generic Name Dose Route Start Last Admin Trade Name Freq PRN Reason Stop Dose Admin Acetaminophen 650 mg 02/15/23 18:53 02/17/23 12:59 Acetaminophen 325 Mg Tablet PO 650 mg Q4H PRN Administration Pain or Fever Hydrocodone Bitart/Acetaminophen 1 tab 02/15/23 21:20 02/16/23 22:36 Hydrocodone/Acetaminophen (*Crx) 5-325 Mg Tablet PO 1 tab Q4H PRN Administration Pain Rated 4-6 Al Hydrox/Mg Hydrox/Simethicone 30 ml 02/15/23 01:32 Mag Hydrox/Al Hydrox/Simeth 30 Ml Udc PO Q6H PRN Indigestion Apixaban 2.5 mg 02/16/23 21:00 02/17/23 10:05 Apixaban 2.5 Mg Tablet PO 2.5 mg Q12HR SUMAN Administration Bisacodyl 10 mg 02/15/23 09:00 02/17/23 12:58 Bisacodyl 10 Mg Suppository RECTAL 10 mg QAM SUMAN Administration Duloxetine HCl 60 mg 02/16/23 09:00 02/17/23 10:05 Duloxetine Hcl 60 Mg Capsule.Dr PO 60 mg QAM SUMAN Administration Glycerin 1 supp 02/15/23 01:51 Glycerin Adult 1 Supp.Rect RECTAL QAM PRN Constipation Vancomycin HCl 1,250 mg in 250 mls @ 166.667 mls/hr 02/15/23 05:00 02/17/23 06:07 Vancomycin 1,250 Mg/Ns 250 Ml IVPB Infused Q12H SUMAN Infusion Meropenem 1 gm/ Sodium 100 mls @ 200 mls/hr 02/15/23 16:00 02/17/23 06:46 Chloride IVPB Infused Q8HR SUMAN Infusion Midodrine 10 mg 02/15/23 13:00 02/17/23 12:59 Midodrine Hcl 10 Mg Tablet PO 10 mg TID SUMAN Administration Mirtazapine 15 mg 02/16/23 21:00 02/16/23 20:39 Mirtazapine 15 Mg Tablet PO 15 mg HS SUMAN Administration Morphine Sulfate 4 mg 02/15/23 21:20 02/17/23 10:57 Morphine Sulfate (*Crx) 4 Mg/Ml Inj IV PUSH 4 mg Q3H PRN
[2023-02-17] MEDS: MIRTAZAPINE 15 MG TABLET PO (20:13)
[2023-02-18] VITALS (9 sets, daily range): BP systolic 97–157; BP diastolic 57–82; PULSE 64–92; RESP 14–16; TEMP 36.3–36.9; O2SAT 98–100
[2023-02-18] MEDS: MORPHINE SULFATE (*CRX) 4 MG/ML INJ IV PUSH ×5 (00:31→19:51)
[2023-02-18] MEDS: HYDROcodone/acetaminophen (*CRX) 5-325 MG TABLET 1 TAB PO ×2 (01:21→05:32)
[2023-02-18] MEDS: MEROPENEM 1 GM in SODIUM CHLORIDE 0.9% IV 100 ML IVPB ×2 (05:20→14:02)
[2023-02-18] MEDS: VANCOMYCIN 1,250 MG/NS 250 ML 1,250 MG/250 ML BAG 166.7 MG IVPB (05:20)
[2023-02-18] MEDS: CENTRAL LINE FLUSH 10 ML IV PUSH ×3 (05:21→20:30)
[2023-02-18 05:51] LABS: Hematocrit 29.5 % (42.0-52.0); Hemoglobin 9.9 g/dL (14.0-18.0); Mean Corpuscular HGB Conc 33.6 g/dl (32-36); Mean Corpuscular Hemoglobin 22.2 pg (26-34); Mean Corpuscular Volume 66.3 fl (80-100); Mean Platelet Volume 9.5 fl (7.4-10.4); Platelet Count Result 503 k/mm3 (150-375); Red Blood Count 4.45 M/mm3 (4.6-6.20); Red Cell Distribution Width 18.6 % (11.5-14.5); White Blood Count 8.9 K/mm3 (4.5-10.0)
[2023-02-18 05:52] LABS: Alanine Aminotransferase 17 U/L (6-50); Albumin Level 3.7 g/dL (3.5-5.1); Alkaline Phosphatase 76 U/L (38-126); Anion Gap 4 mmol/L (8-16); Aspartate Amino Transferase 23 U/L (17-59); Bilirubin,Total 0.4 mg/dL (0.2-1.3); Blood Urea Nitrogen 19 mg/dL (9-20); Calcium 9.4 mg/dL (8.4-10.2); Carbon Dioxide 36 mmol/L (22-30); Chloride 96 mmol/L (98-107); Estimated CRCL calculation 174 ml/min; Estimated Glomerular Filt Rate > 60; Glucose 92 mg/dL (65-110); Magnesium 1.6 mg/dL (1.6-2.3); Potassium 4.3 mmol/L (3.4-5.0); Sodium 136 mmol/L (137-145)
[2023-02-18] MEDS: APIXABAN 2.5 MG TABLET PO (08:49)
[2023-02-18] MEDS: FERROUS SULFATE 325 MG TABLET DR PO (08:49)
[2023-02-18] MEDS: PANTOPRAZOLE SODIUM IV 40 MG VIAL IV PUSH ×2 (08:49→20:29)
[2023-02-18] MEDS: SILVERGEL (ELTA) 45 ML 1 APPLIC TOPICAL (08:49)
[2023-02-18] MEDS: MIDODRINE HCL 10 MG TABLET PO ×3 (08:49→17:35)
[2023-02-18] MEDS: PREGABALIN (*CRX) 50 MG CAPSULE 100 MG PO ×2 (08:49→20:29)
[2023-02-18] MEDS: DULoxetine HCL 60 MG CAPSULE.DR PO (08:49)
--- NOTE | 2023-02-18 11:22 | PM.PNGS ---
Progress Note: A&P Assessment and Plan (1) Decubitus ulcer of sacral region, stage 4: Code(s): L89.154 - Pressure ulcer of sacral region, stage 4 Status: Acute Assessment and Plan: Ulcer base remains clean. There is a small amount of nonviable tissue at the edges of the skin. Will take the patient to the operating tomorrow for debridement of the wound and application of allograft and placement of wound VAC. Will hold the patient's Eliquis for now and make him NPO at midnight. Subjective Subjective Date/Time Seen: 02/18/23 11:22 Interval history: Patient remains stable on the floor. No acute changes. Exam Skin: Other: Stage IV sacral decubitus wound remains clean and packed. No fecal material within the wound. Small amount of nonviable tissue at the skin edges. Good granulation tissues noted the base. Objective Data Vital Signs Vital Signs: Vital Signs - 24 hr 02/17/23 20:00 02/17/23 20:00 02/17/23 21:57 Temperature Pulse Rate 56 L 56 L 57 L Respiratory Rate 16 Blood Pressure Pulse Oximetry 99 Oxygen Delivery Room Air 02/18/23 00:00 02/18/23 00:00 02/18/23 04:00 Temperature 36.6 C Pulse Rate 71 64 87 Respiratory Rate 14 Blood Pressure 157/82 H Pulse Oximetry 98 Oxygen Delivery 02/18/23 05:00 Temperature 36.3 C L Pulse Rate 89 Respiratory Rate 14 Blood Pressure 97/57 L Pulse Oximetry 100 Oxygen Delivery Intake/Output Intake/Output: Intake & Output 02/15/23 02/16/23 02/17/23 02/18/23 23:59 23:59 23:59 23:59 Intake Total 6675 5450 2610 480 Output Total 7485 4300 7350 1325 Balance 1750 4819 -5084 -076 Meds/Results Medications: Active Medications Generic Name Dose Route Start Last Admin Trade Name Freq PRN Reason Stop Dose Admin Acetaminophen 650 mg 02/15/23 18:53 02/17/23 12:59 Acetaminophen 325 Mg Tablet PO 650 mg Q4H PRN Administration Pain or Fever Hydrocodone Bitart/Acetaminophen 1 tab 02/15/23 21:20 02/18/23 05:32 Hydrocodone/Acetaminophen (*Crx) 5-325 Mg Tablet PO 1 tab Q4H PRN Administration Pain Rated 4-6 Al Hydrox/Mg Hydrox/Simethicone 30 ml 02/15/23 01:32 Mag Hydrox/Al Hydrox/Simeth 30 Ml Udc PO Q6H PRN Indigestion Apixaban 2.5 mg 02/16/23 21:00 02/18/23 08:49 Apixaban 2.5 Mg Tablet PO 2.5 mg Q12HR SUMAN Administration Bisacodyl 10 mg 02/15/23 09:00 02/17/23 12:58 Bisacodyl 10 Mg Suppository RECTAL 10 mg QAM SUMAN Administration Duloxetine HCl 60 mg 02/16/23 09:00 02/18/23 08:49 Duloxetine Hcl 60 Mg Capsule.Dr PO 60 mg QAM SUMAN Administration Ferrous Sulfate 325 mg 02/18/23 09:00 02/18/23 08:49 Ferrous Sulfate [address] PO 325 mg DAILY SUMAN Administration Glycerin 1 supp 02/15/23 01:51 Glycerin Adult 1 Supp.Rect RECTAL QAM PRN Constipation Vancomycin HCl 1,250 mg in 250 mls @ 166.667 mls/hr 02/15/23 05:00 02/18/23 05:20 Vancomycin 1,250 Mg/Ns 250 Ml IVPB 166.7 mls/hr Q12H SUMAN Administration Meropenem 1 gm/ Sodium 100 mls @ 200 mls/hr 02/15/23 16:00 02/18/23 05:20 Chloride IVPB 100 mls/hr Q8HR SUMAN Administration Midodrine 10 mg 02/15/23 13:00 02/18/23 08:49 Midodrine Hcl 10 Mg Tablet PO 10 mg TID SUMAN Administration Mirtazapine 15 mg 02/16/23 21:00 02/17/23 20:13 Mirtazapine 15 Mg Tablet PO 15 mg HS SUMAN Administration Morphine Sulfate 4 mg 02/15/23 21:20 02/18/23 09:48 Morphine Sulfate (*Crx) 4 Mg/Ml Inj IV PUSH 4 mg Q3H PRN Administration Pain Rated 7-10 Ondansetron HCl 4 mg 02/14/23 17:56 02/14/23 20:00 Ondansetron Inj 4 Mg/2 Ml Vial IV PUSH 4 mg Q4H PRN Administration Nausea Pantoprazole Sodium 40 mg 02/15/23 09:00 02/18/23 08:49 Pantoprazole Sodium Iv 40 Mg Vial IV PUSH 40 mg Q12HR SUMAN Administration Polyethylene Glycol 17 gm 02/15/23 01:32 02/17/23 20:16 Polyethylene Glycol 3350 17 Gm Powd.Pack P
--- NOTE | 2023-02-18 14:35 | PM.IMPN ---
Progress Note: A&P Assessment and Plan (1) Septic shock: Code(s): A41.9 - Sepsis, unspecified organism; R65.21 - Severe sepsis with septic shock Status: Acute Assessment and Plan: Septic shock secondary to pyelonephritis CT abdomen pelvis positive for cystitis with ascending infection, left sacral decubitus ulcer with sclerosis of adjacent bone which may represent old healed or chronic osteomyelitis, and fecal impaction without findings of some stercoral colitis Sacral decubitus ulcer examined by General surgery and they did not feel like it was infected. Urine culture positive for Pseudomonas and blood culture in 1 bottle positive for Enterococcus and Pseudomonas. Aguilar catheter changed in the ER. IV fluids discontinued. 02/15/2023 central venous catheter placed and started patient on Levophed that has now been weaned off. Patient has low blood pressure at baseline and is on midodrine as an outpatient. 02/18/23 Sensitivities came back and antibiotics transition to ampicillin and Levaquin. Discussed case with ID pharmacist. Repeat blood cultures drawn on 02/18 General surgery and urology following. (2) Constipation: Code(s): K59.00 - Constipation, unspecified Status: Acute Assessment and Plan: Continue MiraLax, bisacodyl (3) Paraplegia: Code(s): G82.20 - Paraplegia, unspecified Status: Acute Assessment and Plan: On rotation bed, with waffle boots on both feet (4) Pyelonephritis: Code(s): N12 - Tubulo-interstitial nephritis, not specified as acute or chronic Status: Acute Assessment and Plan: See above (5) Decubitus ulcer of sacral region, stage 4: Code(s): L89.154 - Pressure ulcer of sacral region, stage 4 Status: Acute Assessment and Plan: Patient has a large decubitus ulcer which was examined by general surgery and not appear to be infected as per general surgeon. No plan for debridement at this time. continue antibiotic therapy. Patient will eventually need a graft General surgery following (6) Decubitus ulcer, heel: Qualifiers: Pressure injury stage: unspecified pressure injury stage Code(s): L89.609 - Pressure ulcer of unspecified heel, unspecified stage Status: Acute Assessment and Plan: Seen by wound care. Local wound care (7) Lower extremity edema: Code(s): R60.0 - Localized edema Status: Acute Assessment and Plan: Venous Doppler bilateral ordered to rule out DVT Normal echo Compression stocking (8) Esophagitis: Code(s): K20.90 - Esophagitis, unspecified without bleeding Status: Acute Assessment and Plan: Continue PPI Plan DVT prophylaxis -Eliquis will be resumed Nutrition -regular diet with supplements Code Status - Full Code Transfer out of ICU 02/16/23 Subjective Date/time seen: 02/18/23 14:35 Interval history: Patient doing well today. he is still having right arm pain and hand right hand pain. Controlling with IV pain meds right now. He had bowel movement last night. scheduled for sacral wound debridement tomorrow. Review of Systems Review of Systems: All systems reviewed & are unremarkable except as noted in HPI and below Exam Narrative: GENERAL: Comfortable, no acute distress HENMT: moist mucous membranes EYES: EOM intact b/l RESPIRATORY: clear to auscultation CARDIO: RRR GI: Distended, soft, nontender, bowel sounds present SKIN: no rashes EXTREMITIES: Bilateral Waffle boots, weakness and pain in the right arm Objective Data Vital Signs Vital Signs: Vital Signs - 24 hr 02/17/23 20:00 02/17/23 20:00 02/17/23 21:57 Temperature Pulse Rate 56 L 56 L 57 L Respiratory Rate 16 Blood Pressure Pulse Oximetry 99 Oxygen Delivery Room Air 02/18/23 00:00 02/18/23 00:00 02/18/23 04:00 Temperature 98 F Pulse Rate 71 64 87 Respiratory Rate 14 Blood Pressure 157/
[2023-02-18] MEDS: levoFLOXacin 750 MG/D5W 150 ML 750 MG/150 ML BAG 100 MG IVPB (15:53)
[2023-02-18] MEDS: AMPICILLIN 2 GM/NS 100 ML 2 GM/100 ML BAG IVPB ×2 (17:35→20:26)
[2023-02-18] MEDS: MIRTAZAPINE 15 MG TABLET PO (20:29)
[2023-02-18] MEDS: polyethylene glycoL 3350 17 GM POWD.PACK PO (20:29)
[2023-02-19] VITALS (15 sets, daily range): BP systolic 102–129; BP diastolic 61–81; PULSE 80–119; RESP 12–18; TEMP 36.6–38.1; O2SAT 95–100
[2023-02-19] MEDS: SODIUM CHLORIDE 0.9% IV 1,000 ML 100 ML IV CONT (00:10)
[2023-02-19] MEDS: MORPHINE SULFATE (*CRX) 4 MG/ML INJ IV PUSH ×3 (00:12→20:34)
[2023-02-19] MEDS: GLYCERIN ADULT 1 SUPP.RECT RECTAL (00:45)
[2023-02-19] MEDS: AMPICILLIN 2 GM/NS 100 ML 2 GM/100 ML BAG IVPB ×6 (01:16→20:34)
[2023-02-19] MEDS: CENTRAL LINE FLUSH 10 ML IV PUSH (06:16)
[2023-02-19 06:37] LABS: Hematocrit 28.7 % (42.0-52.0); Hemoglobin 9.7 g/dL (14.0-18.0); Mean Corpuscular HGB Conc 33.8 g/dl (32-36); Mean Corpuscular Hemoglobin 22.4 pg (26-34); Mean Corpuscular Volume 66.3 fl (80-100); Mean Platelet Volume 9.1 fl (7.4-10.4); Platelet Count Result 505 k/mm3 (150-375); Red Blood Count 4.33 M/mm3 (4.6-6.20); Red Cell Distribution Width 18.9 % (11.5-14.5); White Blood Count 12.1 K/mm3 (4.5-10.0)
[2023-02-19 06:44] LABS: Alanine Aminotransferase 20 U/L (6-50); Albumin Level 3.7 g/dL (3.5-5.1); Alkaline Phosphatase 85 U/L (38-126); Anion Gap 4 mmol/L (8-16); Aspartate Amino Transferase 29 U/L (17-59); Bilirubin,Total 0.3 mg/dL (0.2-1.3); Blood Urea Nitrogen 20 mg/dL (9-20); Carbon Dioxide 33 mmol/L (22-30); Chloride 99 mmol/L (98-107); Estimated CRCL calculation 205 ml/min; Estimated Glomerular Filt Rate > 60; Glucose 111 mg/dL (65-110); Magnesium 1.7 mg/dL (1.6-2.3); Potassium 4.2 mmol/L (3.4-5.0); Sodium 136 mmol/L (137-145)
[2023-02-19 07:23] LABS: Vancomycin Trough 5.7 ug/mL (10.0-20.0)
[2023-02-19] MEDS: DULoxetine HCL 60 MG CAPSULE.DR PO (08:30)
[2023-02-19] MEDS: PREGABALIN (*CRX) 50 MG CAPSULE 100 MG PO ×2 (08:30→20:34)
[2023-02-19] MEDS: BISACODYL 10 MG SUPPOSITORY RECTAL (08:30)
[2023-02-19] MEDS: FERROUS SULFATE 325 MG TABLET DR PO (08:30)
[2023-02-19] MEDS: MIDODRINE HCL 10 MG TABLET PO ×3 (08:30→17:15)
[2023-02-19] MEDS: PANTOPRAZOLE SODIUM IV 40 MG VIAL IV PUSH ×2 (08:30→20:34)
[2023-02-19] MEDS: SILVERGEL (ELTA) 45 ML 1 APPLIC TOPICAL (08:31)
--- NOTE | 2023-02-19 11:04 | WPDHPUPDATE1 ---
History and Physical Update Update Date/Time: 02/19/23 11:04 History and Physical has been reviewed, including an updated exam of the patient. There are NO changes in the patient's condition. Risks, benefits, and alternatives have been discussed and questions answered. Patient agrees to proceed with procedure.
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
[2023-02-19] MEDS: LACTATED RINGERS 1,000 ML 30 ML IV CONT (11:18)
[2023-02-19] MEDS: fentaNYL CITRATE INJ (*CRX) 100 MCG/2 ML VIAL 25 MCG IV PUSH (11:18)
--- NOTE | 2023-02-19 13:21 | PCOTNOTE ---
Attempted OT eval at 13:21, patient off unit for procedure. Will follow.
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
--- NOTE | 2023-02-19 14:22 | PM.IMPN ---
Progress Note: A&P Assessment and Plan (1) Septic shock: Code(s): A41.9 - Sepsis, unspecified organism; R65.21 - Severe sepsis with septic shock Status: Acute Assessment and Plan: Septic shock secondary to pyelonephritis CT abdomen pelvis positive for cystitis with ascending infection, left sacral decubitus ulcer with sclerosis of adjacent bone which may represent old healed or chronic osteomyelitis, and fecal impaction without findings of some stercoral colitis Sacral decubitus ulcer examined by General surgery and they did not feel like it was infected. Urine culture positive for Pseudomonas and blood culture in 1 bottle positive for Enterococcus and Pseudomonas. Aguilar catheter changed in the ER. IV fluids discontinued. 02/15/2023 central venous catheter placed and started patient on Levophed that has now been weaned off. Patient has low blood pressure at baseline and is on midodrine as an outpatient. 02/18/23 Sensitivities came back and antibiotics transition to ampicillin and Levaquin. Discussed case with ID pharmacist. Repeat blood cultures drawn on 02/18 General surgery and urology following. (2) Constipation: Code(s): K59.00 - Constipation, unspecified Status: Acute Assessment and Plan: Continue MiraLax, bisacodyl (3) Paraplegia: Code(s): G82.20 - Paraplegia, unspecified Status: Acute Assessment and Plan: On rotation bed, with waffle boots on both feet (4) Pyelonephritis: Code(s): N12 - Tubulo-interstitial nephritis, not specified as acute or chronic Status: Acute Assessment and Plan: See above (5) Decubitus ulcer of sacral region, stage 4: Code(s): L89.154 - Pressure ulcer of sacral region, stage 4 Status: Acute Assessment and Plan: Patient has a large decubitus ulcer which was examined by general surgery and not appear to be infected as per general surgeon. No Patient underwent debridement on 02/19/2023 sacral wound. continue antibiotic therapy. Patient will eventually need a graft General surgery following (6) Decubitus ulcer, heel: Qualifiers: Pressure injury stage: unspecified pressure injury stage Code(s): L89.609 - Pressure ulcer of unspecified heel, unspecified stage Status: Acute Assessment and Plan: Seen by wound care. Local wound care (7) Lower extremity edema: Code(s): R60.0 - Localized edema Status: Acute Assessment and Plan: Venous Doppler bilateral ordered to rule out DVT Normal echo Compression stocking (8) Esophagitis: Code(s): K20.90 - Esophagitis, unspecified without bleeding Status: Acute Assessment and Plan: Continue PPI Plan DVT prophylaxis -Eliquis will be resumed Nutrition -regular diet with supplements Code Status - Full Code Transfer out of ICU 02/16/23 Subjective Date/time seen: 02/19/23 14:22 Interval history: Patient doing well today with no new complaints. Patient underwent debridement of sacral wound today. Continue local wound care. Continue to monitor white count. Review of Systems Review of Systems: All systems reviewed & are unremarkable except as noted in HPI and below Exam Narrative: GENERAL: Comfortable, no acute distress HENMT: moist mucous membranes EYES: EOM intact b/l RESPIRATORY: clear to auscultation CARDIO: RRR GI: Distended, soft, nontender, bowel sounds present SKIN: no rashes EXTREMITIES: Bilateral Waffle boots, weakness and pain in the right arm Objective Data Vital Signs Vital Signs: Vital Signs - 24 hr 02/18/23 14:30 02/18/23 16:00 02/18/23 20:46 Temperature 97.4 F L 98.4 F Pulse Rate 89 92 86 Respiratory Rate 14 16 Blood Pressure 103/70 104/68 Pulse Oximetry 99 99 Oxygen Delivery Oxygen Flow Rate 02/18/23 20:00 02/19/23 00:00 02/19/23 04:00 Temperature Pulse Rate 88 96 119 H Respiratory Rate Blood Pressure
[2023-02-19] MEDS: levoFLOXacin 750 MG/D5W 150 ML 750 MG/150 ML BAG 100 MG IVPB (16:00)
[2023-02-19] MEDS: APIXABAN 2.5 MG TABLET PO (20:34)
[2023-02-19] MEDS: MIRTAZAPINE 15 MG TABLET PO (20:34)
[2023-02-19] MEDS: polyethylene glycoL 3350 17 GM POWD.PACK PO (21:35)
[2023-02-20] VITALS (11 sets, daily range): BP systolic 113–120; BP diastolic 72–81; PULSE 64–101; RESP 14–17; TEMP 36.3–36.6; O2SAT 97–99
[2023-02-20] MEDS: MORPHINE SULFATE (*CRX) 4 MG/ML INJ IV PUSH ×6 (00:38→21:09)
[2023-02-20] MEDS: AMPICILLIN 2 GM/NS 100 ML 2 GM/100 ML BAG IVPB ×6 (01:05→20:30)
[2023-02-20 08:53] LABS: Haptoglobin 242 mg/dL (43-212)
[2023-02-20] MEDS: PANTOPRAZOLE SODIUM IV 40 MG VIAL IV PUSH ×2 (09:47→20:31)
[2023-02-20] MEDS: PREGABALIN (*CRX) 50 MG CAPSULE 100 MG PO ×2 (09:47→20:31)
[2023-02-20] MEDS: DULoxetine HCL 60 MG CAPSULE.DR PO (09:47)
[2023-02-20] MEDS: FERROUS SULFATE 325 MG TABLET DR PO (09:47)
[2023-02-20] MEDS: MIDODRINE HCL 10 MG TABLET PO ×3 (09:47→18:02)
[2023-02-20] MEDS: BISACODYL 10 MG SUPPOSITORY RECTAL (09:48)
[2023-02-20] MEDS: APIXABAN 2.5 MG TABLET PO ×2 (09:48→20:31)
[2023-02-20] MEDS: SILVERGEL (ELTA) 45 ML 1 APPLIC TOPICAL (09:49)
[2023-02-20] MEDS: polyethylene glycoL 3350 17 GM POWD.PACK PO ×2 (09:53→20:30)
--- NOTE | 2023-02-20 10:08 | PCOTNOTE ---
Attempted OT evaluation; pt. refused stating he does not want therapy at this time. Will attempt again as able
[2023-02-20 12:14] LABS: Hematocrit 27.7 % (42.0-52.0); Hemoglobin 9.5 g/dL (14.0-18.0); Mean Corpuscular HGB Conc 34.3 g/dl (32-36); Mean Corpuscular Hemoglobin 22.7 pg (26-34); Mean Corpuscular Volume 66.1 fl (80-100); Platelet Count Result 487 k/mm3 (150-375); Red Blood Count 4.19 M/mm3 (4.6-6.20); Red Cell Distribution Width 18.7 % (11.5-14.5); White Blood Count 14.3 K/mm3 (4.5-10.0)
[2023-02-20 12:25] LABS: Alanine Aminotransferase 26 U/L (6-50); Albumin Level 3.8 g/dL (3.5-5.1); Alkaline Phosphatase 87 U/L (38-126); Anion Gap 7 mmol/L (8-16); Aspartate Amino Transferase 25 U/L (17-59); Bilirubin,Total 0.3 mg/dL (0.2-1.3); Blood Urea Nitrogen 16 mg/dL (9-20); Calcium 9.1 mg/dL (8.4-10.2); Carbon Dioxide 30 mmol/L (22-30); Chloride 100 mmol/L (98-107); Estimated CRCL calculation 250 ml/min; Estimated Glomerular Filt Rate > 60; Glucose 132 mg/dL (65-110); Magnesium 1.9 mg/dL (1.6-2.3); Potassium 3.8 mmol/L (3.4-5.0); Sodium 137 mmol/L (137-145)
--- NOTE | 2023-02-20 12:29 | PM.IMPN ---
Progress Note: A&P Assessment and Plan (1) Septic shock: Code(s): A41.9 - Sepsis, unspecified organism; R65.21 - Severe sepsis with septic shock Status: Acute Assessment and Plan: Septic shock secondary to pyelonephritis CT abdomen pelvis positive for cystitis with ascending infection, left sacral decubitus ulcer with sclerosis of adjacent bone which may represent old healed or chronic osteomyelitis, and fecal impaction without findings of some stercoral colitis Sacral decubitus ulcer examined by General surgery and they did not feel like it was infected. Urine culture positive for Pseudomonas and blood culture in 1 bottle positive for Enterococcus and Pseudomonas. Aguilar catheter changed in the ER. IV fluids discontinued. 02/15/2023 central venous catheter placed and started patient on Levophed that has now been weaned off. Patient has low blood pressure at baseline and is on midodrine as an outpatient. 02/18/23 Sensitivities came back and antibiotics transition to ampicillin and Levaquin. Discussed case with ID pharmacist. Repeat blood cultures drawn on 02/18 General surgery and urology following. 02/20/23 white blood cell count up to 14.3. This could be reactive from debridement yesterday. Will continue to monitor. (2) Constipation: Code(s): K59.00 - Constipation, unspecified Status: Acute Assessment and Plan: Continue MiraLax, bisacodyl (3) Paraplegia: Code(s): G82.20 - Paraplegia, unspecified Status: Acute Assessment and Plan: On rotation bed, with waffle boots on both feet (4) Pyelonephritis: Code(s): N12 - Tubulo-interstitial nephritis, not specified as acute or chronic Status: Acute Assessment and Plan: See above (5) Decubitus ulcer of sacral region, stage 4: Code(s): L89.154 - Pressure ulcer of sacral region, stage 4 Status: Acute Assessment and Plan: Patient has a large decubitus ulcer which was examined by general surgery and not appear to be infected as per general surgeon. No Patient underwent debridement on 02/19/2023 sacral wound. continue antibiotic therapy. Patient will eventually need a graft General surgery following (6) Decubitus ulcer, heel: Qualifiers: Pressure injury stage: unspecified pressure injury stage Code(s): L89.609 - Pressure ulcer of unspecified heel, unspecified stage Status: Acute Assessment and Plan: Seen by wound care. Local wound care (7) Lower extremity edema: Code(s): R60.0 - Localized edema Status: Acute Assessment and Plan: Venous Doppler bilateral ordered to rule out DVT Normal echo Compression stocking (8) Esophagitis: Code(s): K20.90 - Esophagitis, unspecified without bleeding Status: Acute Assessment and Plan: Continue PPI Plan DVT prophylaxis -Eliquis will be resumed Nutrition -regular diet with supplements Code Status - Full Code Transfer out of ICU 02/16/23 Subjective Date/time seen: 02/20/23 12:29 Interval history: Patient doing well today with no new complaints. Review of Systems Review of Systems: All systems reviewed & are unremarkable except as noted in HPI and below Exam Narrative: GENERAL: Comfortable, no acute distress HENMT: moist mucous membranes EYES: EOM intact b/l RESPIRATORY: clear to auscultation CARDIO: RRR GI: Distended, soft, nontender, bowel sounds present SKIN: no rashes EXTREMITIES: Bilateral Waffle boots, weakness and pain in the right arm Objective Data Vital Signs Vital Signs: Vital Signs - 24 hr 02/19/23 12:39 02/19/23 12:55 02/19/23 13:10 Temperature 99.6 F Pulse Rate 90 85 90 Respiratory Rate 15 12 14 Blood Pressure 118/71 105/64 114/76 Pulse Oximetry 100 100 95 Oxygen Delivery Simple Face Mask Simple Face Mask Room Air Oxygen Flow Rate 8 8 02/19/23 13:25 02/19/23 14:35 02/19/23 14:50 Temperature 98.1 F 98
--- NOTE | 2023-02-20 13:16 | WPDANESPN ---
Anes - Prog Note Post-Op Date/Time: 02/20/23 13:16 Cardiovascular status: normal Respiratory status: normal Airway patency: baseline Mental status: baseline Post-Op hydration status: normal Vital Signs: Last Vital Signs Temp 36.6 C 02/20/23 10:00 Pulse 70 02/20/23 10:00 Resp 17 02/20/23 10:00 BP 118/74 02/20/23 10:00 Pulse Ox 98 02/20/23 10:00 O2 Del Method Room Air 02/19/23 20:00 O2 Flow Rate 8 02/19/23 12:55 Pain Score (VAS): Patient asleep, no nonverbal signs of pain present at this time. I/O: Intake & Output 02/19/23 02/20/23 02/20/23 23:59 07:59 15:59 Intake Total 650 800 480 Output Total 1900 2100 Balance -1250 -1300 480 Laboratory Tests 02/20/23 12:09 02/20/23 12:09 02/16/23 02/20/23 08:26 12:09 WBC 14.3 H RBC 4.19 L Hgb 9.5 L Hct 27.7 L MCV 66.1 L MCH 22.7 L MCHC 34.3 RDW 18.7 H Plt Count 487 H MPV 9.0 Haptoglobin 242 H Sodium 137 Potassium 3.8 Chloride 100 Carbon Dioxide 30 Anion Gap 7 L BUN 16 Creatinine 0.40 L Estim Creat Clear Calc 250 Estimated GFR > 60 Glucose 132 H Calcium 9.1 Magnesium 1.9 Total Bilirubin 0.3 AST 25 ALT 26 Alkaline Phosphatase 87 Total Protein 7.0 Albumin 3.8 Microbiology 02/18/23 06:01 Blood Blood Culture - Preliminary 02/18/23 06:01 Blood Blood Culture - Preliminary Post-procedural complaints: none Patient Feedback: Patient satisfied with anesthetic care.
[2023-02-20] MEDS: levoFLOXacin 750 MG/D5W 150 ML 750 MG/150 ML BAG 100 MG IVPB (18:01)
[2023-02-20] MEDS: MIRTAZAPINE 15 MG TABLET PO (20:31)
[2023-02-21] VITALS (13 sets, daily range): BP systolic 93–212; BP diastolic 50–118; PULSE 67–103; RESP 16–20; TEMP 36.8–37.1; O2SAT 95–99
[2023-02-21] MEDS: AMPICILLIN 2 GM/NS 100 ML 2 GM/100 ML BAG IVPB ×6 (01:36→20:33)
[2023-02-21] MEDS: MORPHINE SULFATE (*CRX) 4 MG/ML INJ IV PUSH ×5 (05:27→23:08)
[2023-02-21 09:03] LABS: Basophils Absolute Auto 0.1 K/mm3 (0.0-0.1); Basophils Percent Auto 0.9 % (0.2-1.2); Eosinophils Absolute Auto 0.4 K/mm3 (0-0.3); Eosinophils Percent Auto 2.8 % (0-4.4); Hemoglobin 9.8 g/dL (14.0-18.0); Immature Granulocyte Absolute 0.07 K/mm3 (0.00-0.031); Immature Granulocyte Percent A 0.6 % (0-0.5); Lymphocytes Absolute Auto 3.76 K/mm3 (0.9-3.2); Lymphocytes Percent Auto 30.3 % (18.3-44.2); Mean Corpuscular HGB Conc 33.8 g/dl (32-36); Mean Corpuscular Hemoglobin 22.3 pg (26-34); Mean Corpuscular Volume 66.1 fl (80-100); Mean Platelet Volume 8.8 fl (7.4-10.4); Monocytes Absolute Auto 1.4 K/mm3 (0.1-0.6); Monocytes Percent Auto 11.1 % (2.6-8.5); Neutrophils Absolute Auto 6.8 K/mm3 (1.3-6.7); Neutrophils Percent Auto 54.3 % (45.5-73.1); Nucleated Red Blood Cells Perc 0.2 % (0.0-0.2); Platelet Count Result 535 k/mm3 (150-375); Red Blood Count 4.39 M/mm3 (4.6-6.20); Red Cell Distribution Width 18.7 % (11.5-14.5); White Blood Count 12.4 K/mm3 (4.5-10.0)
[2023-02-21 09:17] LABS: Lactic Acid Reflex 1.1 mmol/L (0.7-2.0)
[2023-02-21 09:18] LABS: Alanine Aminotransferase 46 U/L (6-50); Albumin Level 3.7 g/dL (3.5-5.1); Alkaline Phosphatase 99 U/L (38-126); Anion Gap 7 mmol/L (8-16); Aspartate Amino Transferase 38 U/L (17-59); Bilirubin,Total 0.3 mg/dL (0.2-1.3); Blood Urea Nitrogen 16 mg/dL (9-20); Calcium 9.3 mg/dL (8.4-10.2); Carbon Dioxide 31 mmol/L (22-30); Chloride 98 mmol/L (98-107); Estimated CRCL calculation 205 ml/min; Estimated Glomerular Filt Rate > 60; Glucose 92 mg/dL (65-110); Magnesium 1.9 mg/dL (1.6-2.3); Potassium 4.3 mmol/L (3.4-5.0); Sodium 136 mmol/L (137-145)
[2023-02-21] MEDS: PREGABALIN (*CRX) 50 MG CAPSULE 100 MG PO ×2 (09:21→22:11)
[2023-02-21] MEDS: APIXABAN 2.5 MG TABLET PO ×2 (09:21→22:11)
[2023-02-21] MEDS: MIDODRINE HCL 10 MG TABLET PO ×3 (09:22→17:27)
[2023-02-21] MEDS: DULoxetine HCL 60 MG CAPSULE.DR PO (09:22)
[2023-02-21] MEDS: FERROUS SULFATE 325 MG TABLET DR PO (09:22)
[2023-02-21] MEDS: SILVERGEL (ELTA) 45 ML 1 APPLIC TOPICAL (09:24)
[2023-02-21] MEDS: PANTOPRAZOLE SODIUM IV 40 MG VIAL IV PUSH ×2 (09:24→22:11)
[2023-02-21] MEDS: polyethylene glycoL 3350 17 GM POWD.PACK PO (09:27)
[2023-02-21 09:56] LABS: Platelet Estimate Increased (Adequate); Procalcitonin 0.1 ng/mL
[2023-02-21 09:59] LABS: Target Cells 2+ (NORMAL)
[2023-02-21 10:11] LABS: Schistocytes None Seen (NORMAL)
--- NOTE | 2023-02-21 11:55 | PM.IMPN ---
Progress Note: A&P Assessment and Plan (1) Septic shock: Code(s): A41.9 - Sepsis, unspecified organism; R65.21 - Severe sepsis with septic shock Status: Acute Assessment and Plan: Septic shock secondary to pyelonephritis CT abdomen pelvis positive for cystitis with ascending infection, left sacral decubitus ulcer with sclerosis of adjacent bone which may represent old healed or chronic osteomyelitis, and fecal impaction without findings of some stercoral colitis Sacral decubitus ulcer examined by General surgery and they did not feel like it was infected. Urine culture positive for Pseudomonas and blood culture in 1 bottle positive for Enterococcus and Pseudomonas. Aguilar catheter changed in the ER. IV fluids discontinued. 02/15/2023 central venous catheter placed and started patient on Levophed that has now been weaned off. Patient has low blood pressure at baseline and is on midodrine as an outpatient. 02/18/23 Sensitivities came back and antibiotics transition to ampicillin and Levaquin. Discussed case with ID pharmacist. Repeat blood cultures drawn on 02/18 no growth to date General surgery and urology following. 02/21/23 white blood cell count trending down. Will continue to monitor. (2) Constipation: Code(s): K59.00 - Constipation, unspecified Status: Acute Assessment and Plan: Continue MiraLax, bisacodyl (3) Paraplegia: Code(s): G82.20 - Paraplegia, unspecified Status: Acute Assessment and Plan: On rotation bed, with waffle boots on both feet (4) Pyelonephritis: Code(s): N12 - Tubulo-interstitial nephritis, not specified as acute or chronic Status: Acute Assessment and Plan: See above (5) Decubitus ulcer of sacral region, stage 4: Code(s): L89.154 - Pressure ulcer of sacral region, stage 4 Status: Acute Assessment and Plan: Patient has a large decubitus ulcer which was examined by general surgery and not appear to be infected as per general surgeon. No Patient underwent debridement on 02/19/2023 sacral wound. continue antibiotic therapy. Patient will eventually need a graft General surgery following (6) Decubitus ulcer, heel: Qualifiers: Pressure injury stage: unspecified pressure injury stage Code(s): L89.609 - Pressure ulcer of unspecified heel, unspecified stage Status: Acute Assessment and Plan: Seen by wound care. Local wound care (7) Lower extremity edema: Code(s): R60.0 - Localized edema Status: Acute Assessment and Plan: Venous Doppler bilateral ordered to rule out DVT Normal echo Compression stocking (8) Esophagitis: Code(s): K20.90 - Esophagitis, unspecified without bleeding Status: Acute Assessment and Plan: Continue PPI Plan DVT prophylaxis -Eliquis will be resumed Nutrition -regular diet with supplements Code Status - Full Code Transfer out of ICU 02/16/23 Subjective Date/time seen: 02/21/23 11:55 Interval history: patient states that he is having some constipation. MiraLax prescribed up to 3 times daily. Plan on enema if patient is continuing to have constipation. Review of Systems Review of Systems: All systems reviewed & are unremarkable except as noted in HPI and below Exam Narrative: GENERAL: Comfortable, no acute distress HENMT: moist mucous membranes EYES: EOM intact b/l RESPIRATORY: clear to auscultation CARDIO: RRR GI: Distended, soft, nontender, bowel sounds present SKIN: no rashes EXTREMITIES: Bilateral Waffle boots, weakness and pain in the right arm Objective Data Vital Signs Vital Signs: Vital Signs - 24 hr 02/20/23 14:00 02/20/23 18:00 02/20/23 12:00 Temperature 97.3 F L 97.7 F Pulse Rate 65 74 101 H Respiratory Rate 17 16 Blood Pressure 115/81 120/72 Pulse Oximetry 99 97 Oxygen Delivery 02/20/23 16:00 02/20/23 20:00 02/20/23 20:39 Temperature
[2023-02-21] MEDS: BISACODYL 10 MG SUPPOSITORY RECTAL (12:36)
[2023-02-21] MEDS: levoFLOXacin 750 MG/D5W 150 ML 750 MG/150 ML BAG 100 MG IVPB (15:20)
[2023-02-21] MEDS: hydrALAZINE HCL 20 MG/ML VIAL 10 MG IV PUSH (20:32)
[2023-02-21] MEDS: KETOROLAC 15 MG/ML VIAL (*BKC) IV PUSH (20:32)
[2023-02-21] MEDS: MIRTAZAPINE 15 MG TABLET PO (22:11)
[2023-02-22] VITALS (12 sets, daily range): BP systolic 96–137; BP diastolic 55–90; PULSE 68–102; RESP 14–21; TEMP 36.3–37.9; O2SAT 96–100
[2023-02-22] MEDS: AMPICILLIN 2 GM/NS 100 ML 2 GM/100 ML BAG IVPB ×6 (01:19→20:33)
[2023-02-22] MEDS: MORPHINE SULFATE (*CRX) 4 MG/ML INJ IV PUSH ×3 (03:59→21:31)
[2023-02-22] MEDS: BISACODYL 10 MG SUPPOSITORY RECTAL (09:25)
[2023-02-22] MEDS: polyethylene glycoL 3350 17 GM POWD.PACK PO (09:26)
[2023-02-22] MEDS: APIXABAN 2.5 MG TABLET PO ×2 (09:26→20:34)
[2023-02-22] MEDS: DULoxetine HCL 60 MG CAPSULE.DR PO (09:26)
[2023-02-22] MEDS: FERROUS SULFATE 325 MG TABLET DR PO (09:26)
[2023-02-22] MEDS: PREGABALIN (*CRX) 50 MG CAPSULE 100 MG PO ×2 (09:26→20:34)
[2023-02-22] MEDS: MIDODRINE HCL 10 MG TABLET PO (09:26)
[2023-02-22] MEDS: PANTOPRAZOLE SODIUM IV 40 MG VIAL IV PUSH ×2 (09:27→20:33)
[2023-02-22] MEDS: MAGNESIUM HYDROXIDE SUSP 30 ML UDC PO (11:00)
--- NOTE | 2023-02-22 12:54 | PM.IMPN ---
Progress Note: A&P Assessment and Plan (1) Septic shock: Code(s): A41.9 - Sepsis, unspecified organism; R65.21 - Severe sepsis with septic shock Status: Acute Assessment and Plan: Septic shock secondary to pyelonephritis CT abdomen pelvis positive for cystitis with ascending infection, left sacral decubitus ulcer with sclerosis of adjacent bone which may represent old healed or chronic osteomyelitis, and fecal impaction without findings of some stercoral colitis Sacral decubitus ulcer examined by General surgery and they did not feel like it was infected. Urine culture positive for Pseudomonas and blood culture in 1 bottle positive for Enterococcus and Pseudomonas. Aguilar catheter changed in the ER. IV fluids discontinued. 02/15/2023 central venous catheter placed and started patient on Levophed that has now been weaned off. Patient has low blood pressure at baseline and is on midodrine as an outpatient. 02/18/23 Sensitivities came back and antibiotics transition to ampicillin and Levaquin. Discussed case with ID pharmacist. Repeat blood cultures drawn on 02/18 no growth to date General surgery and urology following. 02/21/23 white blood cell count trending down. Will continue to monitor. (2) Constipation: Code(s): K59.00 - Constipation, unspecified Status: Acute Assessment and Plan: Continue MiraLax, bisacodyl, PRN enema, PRN milk of mag (3) Paraplegia: Code(s): G82.20 - Paraplegia, unspecified Status: Acute Assessment and Plan: On rotation bed, with waffle boots on both feet (4) Pyelonephritis: Code(s): N12 - Tubulo-interstitial nephritis, not specified as acute or chronic Status: Acute Assessment and Plan: See above (5) Decubitus ulcer of sacral region, stage 4: Code(s): L89.154 - Pressure ulcer of sacral region, stage 4 Status: Acute Assessment and Plan: Patient has a large decubitus ulcer which was examined by general surgery and not appear to be infected as per general surgeon. No Patient underwent debridement on 02/19/2023 sacral wound. continue antibiotic therapy. Patient will eventually need a graft General surgery following (6) Decubitus ulcer, heel: Qualifiers: Pressure injury stage: unspecified pressure injury stage Code(s): L89.609 - Pressure ulcer of unspecified heel, unspecified stage Status: Acute Assessment and Plan: Seen by wound care. Local wound care (7) Lower extremity edema: Code(s): R60.0 - Localized edema Status: Acute Assessment and Plan: Venous Doppler bilateral ordered to rule out DVT Normal echo Compression stocking (8) Esophagitis: Code(s): K20.90 - Esophagitis, unspecified without bleeding Status: Acute Assessment and Plan: Continue PPI Plan DVT prophylaxis -Eliquis will be resumed Nutrition -regular diet with supplements Code Status - Full Code Transfer out of ICU 02/16/23 Subjective Date/time seen: 02/22/23 12:54 Interval history: Patient continues to have constipation. His constipation is likely worsened due to opioid use. Patient was requesting milk of magnesia which was given to him. Also will do p.r.n. enemas until patient has bowel movement. He complains of abdominal bloating and discomfort. He did have x-ray done yesterday which revealed a nonspecific bowel gas pattern. otherwise he is feeling well today. Review of Systems Review of Systems: All systems reviewed & are unremarkable except as noted in HPI and below Exam Narrative: GENERAL: Comfortable, no acute distress HENMT: moist mucous membranes EYES: EOM intact b/l RESPIRATORY: clear to auscultation CARDIO: RRR GI: Distended, soft, nontender, bowel sounds present SKIN: no rashes EXTREMITIES: Bilateral Waffle boots, weakness and pain in the right arm Objective Data Vital Signs Vital Signs: Vital Signs - 24 hr 0
--- NOTE | 2023-02-22 13:50 | PCOTNOTE ---
Attempted to see pt. for occupational therapy evaluation. Per wound care, pt. may not be appropriate to mobilize at this time due to placement of wound vac and potential for detachment. Spoke with Therapy department at [facility], who states that they plan to attempt to fit pt. for motorized wheelchair upon return and can handle R UE splinting needs, due to risk of contracture in R hand related to chronic injury. Dr. Calvin who performed surgery is out of office, awaiting call back from another practitioner regarding safety of mobilizing pt. with consideration for wound, surgical precautions, and overall limitations of pt. Following.
[2023-02-22] MEDS: levoFLOXacin 750 MG TABLET PO (13:58)
[2023-02-22] MEDS: SILVERGEL (ELTA) 45 ML 1 APPLIC TOPICAL (15:20)
[2023-02-22] MEDS: MIRTAZAPINE 15 MG TABLET PO (20:34)
[2023-02-23] VITALS (12 sets, daily range): BP systolic 93–102; BP diastolic 53–61; PULSE 8–94; RESP 19–21; TEMP 36.2–36.6; O2SAT 98–100
[2023-02-23] MEDS: AMPICILLIN 2 GM/NS 100 ML 2 GM/100 ML BAG IVPB ×6 (01:13→21:07)
[2023-02-23] MEDS: MORPHINE SULFATE (*CRX) 4 MG/ML INJ IV PUSH ×2 (01:13→04:33)
[2023-02-23] MEDS: DULoxetine HCL 60 MG CAPSULE.DR PO (08:22)
[2023-02-23] MEDS: APIXABAN 2.5 MG TABLET PO ×2 (08:22→21:07)
[2023-02-23] MEDS: FERROUS SULFATE 325 MG TABLET DR PO (08:22)
[2023-02-23] MEDS: PREGABALIN (*CRX) 50 MG CAPSULE 100 MG PO ×2 (08:22→21:07)
[2023-02-23] MEDS: SIMETHICONE 80 MG TAB.CHEW PO ×3 (08:22→17:33)
[2023-02-23] MEDS: polyethylene glycoL 3350 17 GM POWD.PACK PO (08:23)
[2023-02-23] MEDS: PANTOPRAZOLE SODIUM IV 40 MG VIAL IV PUSH ×2 (08:23→21:07)
[2023-02-23] MEDS: MIDODRINE HCL 10 MG TABLET PO (08:23)
[2023-02-23] MEDS: SILVERGEL (ELTA) 45 ML 1 APPLIC TOPICAL (08:25)
[2023-02-23] MEDS: oxyCODONE HCL (*CRX) 5 MG TAB IR 10 MG PO ×3 (08:38→17:42)
[2023-02-23] MEDS: ACETAMINOPHEN 325 MG TABLET 650 MG PO (10:29)
--- NOTE | 2023-02-23 11:11 | PCNFU ---
Nutrition Follow-Up Complete: Increased protein energy needs related to wound healing as evidenced by multiple pressure injuries present on admission. Goal: Meet estimated protein energy needs to support wound healing Maintain weight during admission Patient is meeting goal. No new goal. Pt current nutrition is Regular. Last recorded weight is 72.5 kg. Bowel Motility: +BM reported 02/22 Labs Reviewed:Cr 0.5,Na 136,Hct 29.0,Hgb 9.8 Meds Noted:Cymbalta, Vancomycin, Protonix Skin:right heel: unstageable, L heel: Stage III, Sacrum: Stage IV Additional Notes: Patient is tolerating 100% of a regular diet. Diet supplements of Alex BID and Ensure Enlive TID being sent for increased protein needs 2/2 to wounds. Agree with diet orders. Monitoring diet advancement; plan of care; intakes, weights, wound healing, Reassessing every 7 days
[2023-02-23 11:26] LABS: Basophils Absolute Auto 0.1 K/mm3 (0.0-0.1); Basophils Percent Auto 1.1 % (0.2-1.2); Eosinophils Absolute Auto 0.7 K/mm3 (0-0.3); Eosinophils Percent Auto 9.2 % (0-4.4); Hematocrit 29.9 % (42.0-52.0); Hemoglobin 10.2 g/dL (14.0-18.0); Immature Granulocyte Absolute 0.03 K/mm3 (0.00-0.031); Immature Granulocyte Percent A 0.4 % (0-0.5); Lymphocytes Absolute Auto 2.33 K/mm3 (0.9-3.2); Lymphocytes Percent Auto 32.5 % (18.3-44.2); Mean Corpuscular HGB Conc 34.1 g/dl (32-36); Mean Corpuscular Volume 64.6 fl (80-100); Mean Platelet Volume 9.1 fl (7.4-10.4); Monocytes Absolute Auto 0.8 K/mm3 (0.1-0.6); Monocytes Percent Auto 11.4 % (2.6-8.5); Neutrophils Absolute Auto 3.3 K/mm3 (1.3-6.7); Neutrophils Percent Auto 45.4 % (45.5-73.1); Platelet Count Result 561 k/mm3 (150-375); Red Blood Count 4.63 M/mm3 (4.6-6.20); Red Cell Distribution Width 18.5 % (11.5-14.5); White Blood Count 7.2 K/mm3 (4.5-10.0)
[2023-02-23 11:39] LABS: Alanine Aminotransferase 52 U/L (6-50); Albumin Level 3.8 g/dL (3.5-5.1); Alkaline Phosphatase 121 U/L (38-126); Anion Gap 7 mmol/L (8-16); Aspartate Amino Transferase 40 U/L (17-59); Bilirubin,Total 0.5 mg/dL (0.2-1.3); Blood Urea Nitrogen 15 mg/dL (9-20); Calcium 9.6 mg/dL (8.4-10.2); Carbon Dioxide 28 mmol/L (22-30); Chloride 99 mmol/L (98-107); Estimated CRCL calculation 158 ml/min; Estimated Glomerular Filt Rate > 60; Glucose 105 mg/dL (65-110); Sodium 134 mmol/L (137-145)
[2023-02-23 12:16] LABS: Anisocytosis 1+ (NORMAL); Hypochromasia 2+ (NORMAL); Schistocytes None Seen (NORMAL); Target Cells 1+ (NORMAL)
[2023-02-23 12:17] LABS: Platelet Estimate Increased (Adequate)
--- NOTE | 2023-02-23 12:35 | PM.IMPN ---
Progress Note: A&P Assessment and Plan (1) Septic shock: Code(s): A41.9 - Sepsis, unspecified organism; R65.21 - Severe sepsis with septic shock Status: Resolved Assessment and Plan: Septic shock secondary to pyelonephritis CT abdomen pelvis positive for cystitis with ascending infection, left sacral decubitus ulcer with sclerosis of adjacent bone which may represent old healed or chronic osteomyelitis, and fecal impaction without findings of some stercoral colitis Sacral decubitus ulcer examined by General surgery and they did not feel like it was infected. Urine culture positive for Pseudomonas and blood culture in 1 bottle positive for Enterococcus and Pseudomonas. Aguilar catheter changed in the ER. IV fluids discontinued. 02/15/2023 central venous catheter placed and started patient on Levophed that has now been weaned off. Patient has low blood pressure at baseline and is on midodrine as an outpatient. 02/18/23 Sensitivities came back and antibiotics transition to ampicillin and Levaquin. Discussed case with ID pharmacist. Repeat blood cultures drawn on 02/18 no growth to date General surgery and urology following. 02/21/23 white blood cell count trending down. Will continue to monitor. (2) Decubitus ulcer of sacral region, stage 4: Code(s): L89.154 - Pressure ulcer of sacral region, stage 4 Status: Acute Assessment and Plan: Patient has a large decubitus ulcer which was examined by general surgery and not appear to be infected as per general surgeon. No Patient underwent debridement on 02/19/2023 sacral wound with wound VAC placement.. General surgery following Wound culture came back positive for MRSA, Klebsiella and Acinetobacter. According to General surgery's no wound did not appear infected thus this could be contaminant. Treatment per General surgery. Patient has wound VAC in place. 02/23/23 Patient may be here for few days due to needing wound VAC untouched until Wednesday. Will be discharged with wound VAC. (3) Constipation: Code(s): K59.00 - Constipation, unspecified Status: Chronic Assessment and Plan: Continue MiraLax, bisacodyl, PRN enema, PRN milk of mag (4) Paraplegia: Code(s): G82.20 - Paraplegia, unspecified Status: Chronic Assessment and Plan: On rotation bed, with waffle boots on both feet (5) Pyelonephritis: Code(s): N12 - Tubulo-interstitial nephritis, not specified as acute or chronic Status: Acute Assessment and Plan: See above (6) Decubitus ulcer, heel: Qualifiers: Pressure injury stage: unspecified pressure injury stage Code(s): L89.609 - Pressure ulcer of unspecified heel, unspecified stage Status: Acute Assessment and Plan: Seen by wound care. Local wound care (7) Lower extremity edema: Code(s): R60.0 - Localized edema Status: Resolved Assessment and Plan: Venous Doppler bilateral ordered to rule out DVT Normal echo Compression stocking (8) Esophagitis: Code(s): K20.90 - Esophagitis, unspecified without bleeding Status: Acute Assessment and Plan: Continue PPI Plan DVT prophylaxis -Eliquis will be resumed Nutrition -regular diet with supplements Code Status - Full Code Transfer out of ICU 02/16/23 Subjective Date/time seen: 02/23/23 12:35 Interval history: Patient doing well today. He complains of abdominal discomfort and bloating and states he needs to have BM. According to nursing chart, he had BM yesterday and the day before although patient denies having BM yesterday. Discussed with CC today and they stated that IV home antibiotics and wound vac is in the process of being set up at patient's facility. Patient will likely be able to discharge later this week. Surgery wanting wound VAC to remained untouched until Wednesday but after this he should be able to return to facility with wound VAC in place.
[2023-02-23] MEDS: levoFLOXacin 750 MG TABLET PO (13:13)
--- NOTE | 2023-02-23 13:54 | PCOTNOTE ---
Cancelation of OT orders, as pt. is not appropriate for acute therapy services. Hospitalist Janis Burger aware and in agreement.
--- NOTE | 2023-02-23 17:19 | PM.PNGS ---
Progress Note: A&P Assessment and Plan (1) Decubitus ulcer of sacral region, stage 4: Code(s): L89.154 - Pressure ulcer of sacral region, stage 4 Status: Acute Assessment and Plan: Continue wound VAC changes 3 times a week. Will have wound care nurse remove Adaptic gauze Wednesday. Patient may be discharged once Adaptic removed. Subjective Subjective Date/Time Seen: 02/23/23 17:19 Interval history: Patient tolerated wound changed yesterday. No significant changes to wound bed. Exam Skin: Other: Sacral wound dressed wound VAC. minimal serosanguineous drainage. Objective Data Vital Signs Vital Signs: Vital Signs - 24 hr 02/22/23 18:45 02/22/23 20:00 02/22/23 22:17 Temperature 36.7 C 36.3 C L Pulse Rate 80 69 68 Respiratory Rate 16 21 H Blood Pressure 106/67 137/90 Pulse Oximetry 99 100 Oxygen Delivery 02/23/23 00:00 02/23/23 02:00 02/23/23 04:00 Temperature 36.2 C L Pulse Rate 88 87 73 Respiratory Rate 21 H Blood Pressure 102/60 Pulse Oximetry 100 Oxygen Delivery 02/23/23 06:00 02/23/23 10:00 02/23/23 08:00 Temperature 36.6 C 36.4 C Pulse Rate 94 82 71 Respiratory Rate 20 20 Blood Pressure 96/53 L 97/61 L Pulse Oximetry 99 99 Oxygen Delivery 02/23/23 08:00 02/23/23 12:00 02/23/23 16:00 Temperature Pulse Rate 80 81 Respiratory Rate Blood Pressure Pulse Oximetry Oxygen Delivery Room Air Intake/Output Intake/Output: Intake & Output 02/20/23 02/21/23 02/22/23 02/23/23 23:59 23:59 23:59 23:59 Intake Total 2502 2134 1400 1442 Output Total 3100 1370 2650 1400 [facility]653 [phone] 42 Meds/Results Medications: Active Medications Generic Name Dose Route Start Last Admin Trade Name Freq PRN Reason Stop Dose Admin Acetaminophen 650 mg 02/15/23 18:53 02/23/23 10:29 Acetaminophen 325 Mg Tablet PO 650 mg Q4H PRN Administration Mild Pain or Fever Al Hydrox/Mg Hydrox/Simethicone 30 ml 02/15/23 01:32 Mag Hydrox/Al Hydrox/Simeth 30 Ml Udc PO Q6H PRN Indigestion Apixaban 2.5 mg 02/16/23 21:00 02/23/23 08:22 Apixaban 2.5 Mg Tablet PO 2.5 mg Q12HR SUMAN Administration Bisacodyl 10 mg 02/15/23 09:00 02/23/23 08:23 Bisacodyl 10 Mg Suppository RECTAL Not Given QAM SUMAN Duloxetine HCl 60 mg 02/16/23 09:00 02/23/23 08:22 Duloxetine Hcl 60 Mg Capsule. PO 60 mg QAM SUMAN Administration Fentanyl Citrate 25 mcg 02/19/23 11:12 Fentanyl Citrate Inj (*Crx) 100 Mcg/2 Ml Vial IV PUSH Q2M PRN Pain Ferrous Sulfate 325 mg 02/18/23 09:00 02/23/23 08:22 Ferrous Sulfate [address] PO 325 mg DAILY SUMAN Administration Glycerin 1 supp 02/15/23 01:51 02/19/23 00:45 Glycerin Adult 1 Supp.Rect RECTAL 1 supp QAM PRN Administration Constipation Hydralazine HCl 10 mg 02/21/23 20:17 02/21/23 20:32 Hydralazine Hcl 20 Mg/Ml Vial IV PUSH 10 mg Q8H PRN Administration Blood Pressure - High Ampicillin Sodium 2 gm in 100 mls @ 200 mls/hr 02/18/23 17:00 02/23/23 12:59 Ampicillin 2 Gm/Ns 100 Ml IVPB Infused Q4HR SUMAN Infusion Levofloxacin 750 mg 02/22/23 14:00 02/23/23 13:13 Levofloxacin 750 Mg Tablet PO 03/03/23 23:59 750 mg DAILY@1400 SUMAN Administration Magnesium Hydroxide 30 ml 02/22/23 10:26 02/22/23 11:00 Magnesium Hydroxide Susp 30 Ml Udc PO 30 ml QAM PRN Administration Constipation Midodrine 10 mg 02/15/23 13:00 02/23/23 12:36 Midodrine Hcl 10 Mg Tablet PO Not Given TID SUMAN Mirtazapine 15 mg 02/16/23 21:00 02/22/23 20:34 Mirtazapine 15 Mg Tablet PO 15 mg HS SUMAN Administration Morphine Sulfate 4 mg 02/15/23 21:20 02/23/23 04:33 Morphine Sulfate (*Crx) 4 Mg/Ml Inj IV PUSH 4 mg Q3H PRN Administration Pain Rated 7-10 Oxycodone HCl 10 mg 02/23/23 08:21 02/23/23 13:13 Oxycodone Hcl (*Crx) 5 Mg Tab Ir PO 10 mg Q4H PRN Administratio
[2023-02-23] MEDS: MIRTAZAPINE 15 MG TABLET PO (21:07)
[2023-02-24] VITALS (11 sets, daily range): BP systolic 94–140; BP diastolic 55–95; PULSE 70–92; RESP 18–21; TEMP 36.3–36.9; O2SAT 99–100
[2023-02-24] MEDS: oxyCODONE HCL (*CRX) 5 MG TAB IR 10 MG PO ×3 (00:17→17:50)
[2023-02-24] MEDS: AMPICILLIN 2 GM/NS 100 ML 2 GM/100 ML BAG IVPB ×6 (00:17→20:24)
[2023-02-24] MEDS: BISACODYL 10 MG SUPPOSITORY RECTAL (09:11)
[2023-02-24] MEDS: PREGABALIN (*CRX) 50 MG CAPSULE 100 MG PO ×2 (09:15→20:21)
[2023-02-24] MEDS: PANTOPRAZOLE SODIUM IV 40 MG VIAL IV PUSH ×2 (09:15→20:21)
[2023-02-24] MEDS: MIDODRINE HCL 10 MG TABLET PO ×3 (09:15→17:48)
[2023-02-24] MEDS: FERROUS SULFATE 325 MG TABLET DR PO (09:15)
[2023-02-24] MEDS: DULoxetine HCL 60 MG CAPSULE.DR PO (09:15)
[2023-02-24] MEDS: APIXABAN 2.5 MG TABLET PO ×2 (09:15→20:24)
[2023-02-24] MEDS: SILVERGEL (ELTA) 45 ML 1 APPLIC TOPICAL (09:16)
--- NOTE | 2023-02-24 11:09 | PM.IMPN ---
Progress Note: A&P Assessment and Plan (1) Septic shock: Code(s): A41.9 - Sepsis, unspecified organism; R65.21 - Severe sepsis with septic shock Status: Resolved Assessment and Plan: Septic shock secondary to pyelonephritis 02/15/2023 central venous catheter placed and started patient on Levophed that has now been weaned off. Patient has low blood pressure at baseline and is on midodrine as an outpatient. 02/18/23 Sensitivities came back and antibiotics transition to ampicillin and Levaquin. Discussed case with ID pharmacist. Repeat blood cultures drawn on 02/18 no growth to date General surgery and urology following. 02/21/23 white blood cell count trending down. Will continue to monitor. (2) Decubitus ulcer of sacral region, stage 4: Code(s): L89.154 - Pressure ulcer of sacral region, stage 4 Status: Acute Assessment and Plan: Patient has a large decubitus ulcer which was examined by general surgery and not appear to be infected as per general surgeon. No Patient underwent debridement on 02/19/2023 sacral wound with wound VAC placement.. General surgery following Wound culture came back positive for MRSA, Klebsiella and Acinetobacter. According to General surgery's no wound did not appear infected thus this could be contaminant. Treatment per General surgery. Patient has wound VAC in place. 02/23/23 Patient may be here for few days due to needing wound VAC untouched until Wednesday. can discharged with wound VAC on wednesday. (3) Constipation: Code(s): K59.00 - Constipation, unspecified Status: Chronic Assessment and Plan: Continue MiraLax, bisacodyl, PRN enema, PRN milk of mag (4) Paraplegia: Code(s): G82.20 - Paraplegia, unspecified Status: Chronic Assessment and Plan: On rotation bed, with waffle boots on both feet (5) Decubitus ulcer, heel: Qualifiers: Pressure injury stage: unspecified pressure injury stage Code(s): L89.609 - Pressure ulcer of unspecified heel, unspecified stage Status: Acute Assessment and Plan: Seen by wound care. Local wound care (6) Lower extremity edema: Code(s): R60.0 - Localized edema Status: Resolved Assessment and Plan: Venous Doppler bilateral negative for DVT Normal echo Compression stocking (7) Esophagitis: Code(s): K20.90 - Esophagitis, unspecified without bleeding Status: Acute Assessment and Plan: Continue PPI Subjective Date/time seen: 02/24/23 11:09 Interval history: no change Review of Systems Review of Systems: All systems reviewed & are unremarkable except as noted in HPI and below Exam Narrative: GENERAL: Comfortable, no acute distress HENMT: moist mucous membranes EYES: EOM intact b/l RESPIRATORY: clear to auscultation CARDIO: RRR GI: Distended, soft, nontender, bowel sounds present SKIN: no rashes EXTREMITIES: Bilateral Waffle boots, weakness and pain in the right arm Objective Data Vital Signs Vital Signs: Vital Signs - 24 hr 02/23/23 12:00 02/23/23 16:00 02/23/23 14:00 Temperature 97.6 F Pulse Rate 80 81 80 Respiratory Rate 20 Blood Pressure 102/60 Pulse Oximetry 99 Oxygen Delivery 02/23/23 18:00 02/23/23 22:00 02/23/23 20:00 Temperature 97.7 F 97.2 F L Pulse Rate 78 87 8 L Respiratory Rate 19 20 Blood Pressure 101/57 L 93/55 L Pulse Oximetry 98 98 Oxygen Delivery 02/24/23 00:54 02/24/23 02:39 02/24/23 04:00 Temperature 97.3 F L Pulse Rate 87 80 88 Respiratory Rate 21 H Blood Pressure 94/55 L Pulse Oximetry 100 Oxygen Delivery 02/24/23 06:00 02/24/23 08:00 02/24/23 08:00 Temperature 97.4 F L Pulse Rate 81 92 Respiratory Rate 20 Blood Pressure 114/70 Pulse Oximetry 99 Oxygen Delivery Room Air Intake/Output Intake/Output: Intake & Output 02/21/23 02/22/23 02/23/23 02/24/23 23:59 23:59 23:59 23:59 [place]
[2023-02-24] MEDS: levoFLOXacin 750 MG TABLET PO (13:39)
[2023-02-24] MEDS: MIRTAZAPINE 15 MG TABLET PO (20:21)
[2023-02-24] MEDS: MORPHINE SULFATE (*CRX) 4 MG/ML INJ IV PUSH (21:01)
[2023-02-25] VITALS (12 sets, daily range): BP systolic 90–119; BP diastolic 55–71; PULSE 63–98; RESP 17–18; TEMP 36.1–36.6; O2SAT 98–100
[2023-02-25] MEDS: AMPICILLIN 2 GM/NS 100 ML 2 GM/100 ML BAG IVPB ×6 (00:08→20:18)
[2023-02-25] MEDS: oxyCODONE HCL (*CRX) 5 MG TAB IR 10 MG PO ×3 (01:02→20:17)
[2023-02-25] MEDS: MORPHINE SULFATE (*CRX) 4 MG/ML INJ IV PUSH ×3 (03:55→18:37)
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
[2023-02-25] MEDS: PREGABALIN (*CRX) 50 MG CAPSULE 100 MG PO ×2 (10:15→20:17)
[2023-02-25] MEDS: FERROUS SULFATE 325 MG TABLET DR PO (10:16)
[2023-02-25] MEDS: APIXABAN 2.5 MG TABLET PO ×2 (10:16→20:17)
[2023-02-25] MEDS: PANTOPRAZOLE SODIUM IV 40 MG VIAL IV PUSH ×2 (10:17→20:17)
[2023-02-25] MEDS: MIDODRINE HCL 10 MG TABLET PO ×3 (10:17→18:28)
[2023-02-25] MEDS: BISACODYL 10 MG SUPPOSITORY RECTAL (10:32)
[2023-02-25] MEDS: levoFLOXacin 750 MG TABLET PO (14:54)
[2023-02-25] MEDS: SILVERGEL (ELTA) 45 ML 1 APPLIC TOPICAL (14:55)
[2023-02-25 18:46] LABS: Basophils Absolute Auto 0.1 K/mm3 (0.0-0.1); Basophils Percent Auto 1.1 % (0.2-1.2); Eosinophils Absolute Auto 0.5 K/mm3 (0-0.3); Eosinophils Percent Auto 4.5 % (0-4.4); Hematocrit 28.8 % (42.0-52.0); Hemoglobin 9.6 g/dL (14.0-18.0); Immature Granulocyte Absolute 0.06 K/mm3 (0.00-0.031); Immature Granulocyte Percent A 0.6 % (0-0.5); Lymphocytes Absolute Auto 2.33 K/mm3 (0.9-3.2); Lymphocytes Percent Auto 22.1 % (18.3-44.2); Mean Corpuscular HGB Conc 33.3 g/dl (32-36); Mean Corpuscular Hemoglobin 21.9 pg (26-34); Mean Corpuscular Volume 65.8 fl (80-100); Mean Platelet Volume 9.2 fl (7.4-10.4); Monocytes Percent Auto 9.8 % (2.6-8.5); Neutrophils Absolute Auto 6.5 K/mm3 (1.3-6.7); Neutrophils Percent Auto 61.9 % (45.5-73.1); Nucleated Red Blood Cells Perc 0.2 % (0.0-0.2); Platelet Count Result 655 k/mm3 (150-375); Red Blood Count 4.38 M/mm3 (4.6-6.20); Red Cell Distribution Width 19.5 % (11.5-14.5); White Blood Count 10.5 K/mm3 (4.5-10.0)
[2023-02-25 18:58] LABS: Alanine Aminotransferase 37 U/L (6-50); Albumin Level 3.8 g/dL (3.5-5.1); Alkaline Phosphatase 114 U/L (38-126); Anion Gap 5 mmol/L (8-16); Aspartate Amino Transferase 32 U/L (17-59); Bilirubin,Total 0.3 mg/dL (0.2-1.3); Blood Urea Nitrogen 15 mg/dL (9-20); Calcium 9.2 mg/dL (8.4-10.2); Carbon Dioxide 27 mmol/L (22-30); Chloride 100 mmol/L (98-107); Estimated CRCL calculation 205 ml/min; Estimated Glomerular Filt Rate > 60; Glucose 105 mg/dL (65-110); Potassium 4.2 mmol/L (3.4-5.0); Sodium 132 mmol/L (137-145)
[2023-02-25 19:05] LABS: Anisocytosis 1+ (NORMAL); Microcytosis 1+ (NORMAL); Ovalocytes 1+ (NORMAL); Platelet Estimate Increased (Adequate); Schistocytes None Seen (NORMAL); Target Cells 3+ (NORMAL)
[2023-02-25] MEDS: MIRTAZAPINE 15 MG TABLET PO (20:17)
[2023-02-26] VITALS (7 sets, daily range): BP systolic 102–111; BP diastolic 64–72; PULSE 79–96; RESP 16–17; TEMP 36.7–37.2; O2SAT 99–100
[2023-02-26] MEDS: AMPICILLIN 2 GM/NS 100 ML 2 GM/100 ML BAG IVPB (00:55)
--- NOTE | 2023-02-26 02:43 | PC.NURSE ---
02/25/23 at 0600: reviewed all charting and documentation by karen brian
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
[2023-02-26] MEDS: PREGABALIN (*CRX) 50 MG CAPSULE 100 MG PO (09:37)
[2023-02-26] MEDS: SILVERGEL (ELTA) 45 ML 1 APPLIC TOPICAL (09:37)
[2023-02-26] MEDS: APIXABAN 2.5 MG TABLET PO (09:37)
[2023-02-26] MEDS: DULoxetine HCL 60 MG CAPSULE.DR PO (09:37)
[2023-02-26] MEDS: oxyCODONE HCL (*CRX) 5 MG TAB IR 10 MG PO (09:37)
[2023-02-26] MEDS: FERROUS SULFATE 325 MG TABLET DR PO (09:37)
--- NOTE | 2023-02-26 10:57 | PC.NURSE ---
Pt adamantly refusing his AM lab attempts by two nurses, and phelobotmist, patients states 'you cant make me get stuck , Dr. Kong made aware and is okay with patient d/c without labs
[2023-02-26 10:59] LABS: SARS-CoV-2 RNA PCR Positive (Negative)
== END 2023-02-26 13:25 | DRG 981 ==
LOC: ANHED 18:10 → ANHICU 18:29 → ANH2MED 02-17 00:22
PROVIDERS: Internal Medicine; Internal Medicine Critical Care Medicine; Surgery; Admitting Provider Internal Medicine; Emergency Provider Physician Assistant; Visit Provider Student in an Organized Health Care Education/Training Program
PROC: 0HR6XK3 Replacement of Back Skin with Nonautologous Tissue Substitute, Full Thickness, External Approach (ICD-10-PCS; principal; 2023-02-19 12:00)
DX: N12 Tubulo-interstitial nephritis, not specified as acute or chronic (principal); A41.9 Sepsis, unspecified organism; L89.154 Pressure ulcer of sacral region, stage 4; L89.623 Pressure ulcer of left heel, stage 3; U07.1 COVID-19; R65.21 Severe sepsis with septic shock; G82.20 Paraplegia, unspecified; L89.610 Pressure ulcer of right heel, unstageable; B95.62 Methicillin resistant Staphylococcus aureus infection as the cause of diseases classified elsewhere; B96.89 Other specified bacterial agents as the cause of diseases classified elsewhere; B95.2 Enterococcus as the cause of diseases classified elsewhere; B96.5 Pseudomonas (aeruginosa) (mallei) (pseudomallei) as the cause of diseases classified elsewhere; K59.00 Constipation, unspecified; K20.90 Esophagitis, unspecified without bleeding; K29.70 Gastritis, unspecified, without bleeding; M79.601 Pain in right arm; R60.0 Localized edema; Z87.891 Personal history of nicotine dependence
CPT/HCPCS: 36415; 71045; 73564; 74018; 74177; 80048; 80053; 80202; 81001; 82607; 82728; 82746; 82948; 83010; 83540; 83550; 83605; 83615; 83690; 83735; 84100; 84145; 84466; 85025; 85027; 85046; 85610; 85730; 86140; 87040; 87070; 87077; 87086; 87088; 87147; 87186; 87205; 87635; 87636; 93005; 93970; 96361; 96365; 96366; 96367; 96375; 99285; A9270; C1751; C8929; C9113; J0290; J0360; J1100; J1885; J1956; J2185; J2250; J2270; J2371; J2405; J2543; J2704; J3010; J3370; J3480; J7030; J7120; P9045; P9047; Q9957; Q9967

== ENCOUNTER 2023-04-02 00:23 | Observation (INO) | payer BC, MEDICAID, SELFPAY ==
[2023-04-02] VITALS (15 sets, daily range): BP systolic 72–115; BP diastolic 42–82; PULSE 60–98; RESP 9–20; TEMP 36.1–36.9; O2SAT 97–100; BMI 24.7
--- NOTE | ~2023-04-02 | XR_ITS ---
Right foot Technique: AP, oblique, and lateral views were obtained. Clinical History: Heel wound Findings: Generalized osteopenia noted. No acute fracture or dislocation is seen. Osseous alignment i s anatomic. Joint spaces are preserved without erosive or degenerative change. Soft tissues are unrem arkable. Impression: No definite acute fracture or radiographic evidence for osteomyelitis, though evaluation is somewhat suboptimal due to pronounced osteopenia. Reviewed, dictated and finalized at location M. Impression: No definite acute fracture or radiographic evidence for osteomyelitis, though e valuation is somewhat suboptimal due to pronounced osteopenia.
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
[2023-04-02] MEDS: SODIUM CHLORIDE 0.9% IV 1,000 ML 999 ML IV CONT (00:39)
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
[2023-04-02 02:56] LABS: Appearance Urine Cloudy (Clear); Bacteria Urine None Seen /hpf; Bilirubin Urine Negative (Negative); Blood Urine 2+ (Negative); Color Urine Yellow (Yellow); Glucose Urine UA Negative (Negative); Hyaline Casts Urine Present /lpf; Influenza A QL RT-PCR Negative (Negative); Influenza B QL RT-PCR Negative (Negative); Ketones Urine Negative (Negative); Leukocyte Esterase Ur 2+ LEU/UL (Negative); Mucus Urine Present /lpf; Nitrate Urine Negative (Negative); Non Pathogenic Casts >20; Protein Urine 1+ mg/dL (Negative); RBC Urine 51-100 /hpf (0-2); SARS-CoV-2 RNA PCR Negative (Negative); Specific Grav Ur 1.016 (1.001-1.035); Squamous Epithelial Cell Urine None seen /hpf (Few); Urobilinogen Urine 0.2 mg/dL (<2.0); WBC Urine 21-50 /hpf; pH Urine 5.5 (5.0-9.0)
[2023-04-02 02:57] LABS: Add Urine Microscopic? YES
[2023-04-02 03:07] LABS: Partial Thromboplastin Time 33.6 SECONDS (22.3-36.8)
[2023-04-02 03:11] LABS: Basophils Absolute Auto 0.1 K/mm3 (0.0-0.1); Basophils Percent Auto 0.9 % (0.2-1.2); Eosinophils Absolute Auto 0.6 K/mm3 (0-0.3); Eosinophils Percent Auto 7.2 % (0-4.4); Hematocrit 35.1 % (42.0-52.0); Hemoglobin 11.6 g/dL (14.0-18.0); Hypochromasia 2+ (NORMAL); Immature Granulocyte Absolute 0.01 K/mm3 (0.00-0.031); Immature Granulocyte Percent A 0.1 % (0-0.5); Lymphocytes Absolute Auto 2.93 K/mm3 (0.9-3.2); Lymphocytes Percent Auto 37.9 % (18.3-44.2); Mean Corpuscular Hemoglobin 22.1 pg (26-34); Mean Corpuscular Volume 66.7 fl (80-100); Mean Platelet Volume 9.4 fl (7.4-10.4); Monocytes Absolute Auto 0.7 K/mm3 (0.1-0.6); Monocytes Percent Auto 8.7 % (2.6-8.5); Neutrophils Absolute Auto 3.5 K/mm3 (1.3-6.7); Neutrophils Percent Auto 45.2 % (45.5-73.1); Platelet Count Result 628 k/mm3 (150-375); Platelet Estimate Increased (Adequate); Red Blood Count 5.26 M/mm3 (4.6-6.20); Red Cell Distribution Width 20.2 % (11.5-14.5); White Blood Count 7.7 K/mm3 (4.5-10.0)
[2023-04-02 03:12] LABS: Anisocytosis 2+ (NORMAL); Schistocytes None Seen (NORMAL); Target Cells 2+ (NORMAL)
[2023-04-02 03:19] LABS: Alanine Aminotransferase 38 U/L (6-50); Albumin Level 3.8 g/dL (3.5-5.1); Alkaline Phosphatase 154 U/L (38-126); Anion Gap 6 mmol/L (8-16); Aspartate Amino Transferase 27 U/L (17-59); Bilirubin,Total 0.4 mg/dL (0.2-1.3); Blood Urea Nitrogen 13 mg/dL (9-20); Calcium 9.5 mg/dL (8.4-10.2); Carbon Dioxide 31 mmol/L (22-30); Chloride 100 mmol/L (98-107); Estimated CRCL calculation 174 ml/min; Estimated Glomerular Filt Rate > 60; Glucose 89 mg/dL (65-110); Lactic Acid Reflex 1.6 mmol/L (0.7-2.0); Lipase 49 U/L (23-300); Potassium 4.2 mmol/L (3.4-5.0); Sodium 137 mmol/L (137-145)
[2023-04-02 03:29] LABS: Magnesium 1.9 mg/dL (1.6-2.3)
--- NOTE | 2023-04-02 03:29 | PC.NURSE ---
[facility] called and asked for an update on patient
[2023-04-02 03:52] LABS: CRP 5.5 mg/dL (<1.0)
[2023-04-02 04:21] LABS: Procalcitonin 0.1 ng/mL
[2023-04-02] MEDS: CEFEPIME 2 GM/NS 50 ML 2 GM/50 ML BAG IVPB ×2 (04:41→16:53)
[2023-04-02 05:35] LABS: Erythrocyte Sedimentation Rate 27 mm/hr (0-20)
--- NOTE | 2023-04-02 05:43 | ADMGEN ---
This patient, Krista Cook, was admitted to [facility] S[facility] Room 315-02. Patient/family oriented to hospital policies and general routines including ID bracelet, bed and alarms, visiting hours, pain management, procedures, bathroom and other care routines, personal items, smoking policy, room service/diet, and visiting hours. Information on how to activate the Rapid Response Team has been discussed. Patient/Family are encouraged to report perceived risks to care and to ask questions if they do not understand what they are told or what they should do.
--- NOTE | 2023-04-02 08:15 | PC.NURSE ---
patient arrived to floor with wound vac from [facility]. [phone]. We have removed the wound vac. I talked with the nurse about having someone come to pickle cutter the equipment. She is going to talk to the DON and see who would be able to come and pickle cutter the wound vac. She said someone would call me back.
--- NOTE | 2023-04-02 09:07 | PC.NURSE ---
patient wound vac given to Zaida from [facility].
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
[2023-04-02] MEDS: LIDOCAINE 5% PATCH 1 PATCH TOPICAL (11:14)
[2023-04-02] MEDS: ENOXAPARIN 40 MG/0.4 ML SYRINGE SUB-Q (11:14)
[2023-04-02] MEDS: ALPRAZolam (*CRX) 0.5 MG TABLET PO (11:15)
[2023-04-02] MEDS: levoFLOXacin 750 MG TABLET PO (11:15)
[2023-04-02] MEDS: BACLOFEN 5 MG TABLET PO ×2 (11:15→16:53)
[2023-04-02] MEDS: THERAPEUTIC MULTIVITAMINS/MINERALS TAB (*BKC) 1 TABLET PO (11:15)
--- NOTE | 2023-04-02 11:21 | PC.NURSE ---
Pt was lying in bed with blankets covering his face. I explained to pt that I had medications for him and that he would need to sit up to take them. Pt yelled at me but it was incoherent. Pt refused to give me his date of . Pt refused to answer any questions or acknowledge me and lowered the head of his bed. I then stated, I assume this means you are refusing to take your meds since you won't answer me or acknowledge that I am speaking to you. Pt then began screaming at me that he never said that but he isn't going to sit up to do. I explained that he needed to sit up to swallow the meds because I didn't want him to choke. Pt began screaming and cursing at me again that he can take his meds lying down or not at all. Meds administered with pt sitting upright at about 45 degrees (instead of supine as he wanted).
--- NOTE | 2023-04-02 14:26 | PC.NURSE ---
After the [employer]LECT[employer] MASK MAKER and I competed the ordered wound care on pt's heels and coccyx areas, pt demanded that the bed be elevated. I attempted to explain that the bed was not allowed to remain elevated as it was a safety risk. Pt began yelling at me that he was not a fall risk and he has the right to have what I want. I explained again that pt is a fall risk and regardless the bed is not allowed to remain in an elevated position. He began yelling again and accused be of being snobby and extra and the only person 'following the rules' to which I replied that I cannot speak as to what others may or may not have done but I am most definitely going to follow the rules because I am charged with keeping him safe. I informed him that he was welcome to discuss the matter with my stave cutting supervisor but I was not going to yield on the issue to which he insisted that on speaking with the stave cutting supervisor. I immediately informed the charge nurse of the situation and what had transpired. I returned to pt's room to retrieve my computer and finish cleaning/organizing the room after the wound care treatment. Pt immediately began yelling as soon as I walked into the room. I attempted to tell pt that the stave cutting supervisor was on her way at which time pt began yelling, you're extra and have been kickin' it off with me since this morning. I calmly stated that the stave cutting supervisor was on her way, gathered my computer and left the room.
[2023-04-02] MEDS: SODIUM CHLORIDE 0.9% IV 500 ML IV CONT (14:39)
[2023-04-02] MEDS: SILVERGEL (ELTA) 45 ML 1 APPLIC TOPICAL (15:31)
[2023-04-02] MEDS: PREGABALIN (*CRX) 50 MG CAPSULE 100 MG PO (16:53)
[2023-04-02] MEDS: ASCORBIC ACID 250 MG TABLET PO (16:53)
[2023-04-02] MEDS: DULoxetine HCL 60 MG CAPSULE.DR PO (20:31)
[2023-04-02] MEDS: MIRTAZAPINE 15 MG TABLET PO (20:31)
[2023-04-03] MEDS: CEFEPIME 2 GM/NS 50 ML 2 GM/50 ML BAG IVPB (04:24)
[2023-04-03 04:50] VITALS: BP 120/71; PULSE 72; RESP 16; TEMP 36.1; O2SAT 97
[2023-04-03 08:00] VITALS: RESP 16
[2023-04-03] MEDS: MIDODRINE HCL 2.5 MG TABLET 5 MG PO (10:16)
[2023-04-03] MEDS: FERROUS SULFATE 325 MG TABLET DR PO (10:16)
[2023-04-03] MEDS: ASCORBIC ACID 250 MG TABLET PO (10:16)
[2023-04-03] MEDS: polyethylene glycoL 3350 17 GM POWD.PACK PO (10:16)
[2023-04-03] MEDS: PREGABALIN (*CRX) 50 MG CAPSULE 100 MG PO (10:16)
[2023-04-03] MEDS: ENOXAPARIN 40 MG/0.4 ML SYRINGE SUB-Q (10:17)
[2023-04-03] MEDS: SILVERGEL (ELTA) 45 ML 1 APPLIC TOPICAL (10:17)
[2023-04-03] MEDS: hydrOXYzine HCL 25 MG TABLET PO (10:17)
[2023-04-03] MEDS: THERAPEUTIC MULTIVITAMINS/MINERALS TAB (*BKC) 1 TABLET PO (10:17)
[2023-04-03] MEDS: BACLOFEN 5 MG TABLET PO ×2 (10:17→14:09)
[2023-04-03] MEDS: LIDOCAINE 5% PATCH 1 PATCH TOPICAL (10:20)
[2023-04-03] MEDS: ALPRAZolam (*CRX) 0.5 MG TABLET PO (10:20)
[2023-04-03 10:25] LABS: Basophils Absolute Auto 0.1 K/mm3 (0.0-0.1); Eosinophils Absolute Auto 0.4 K/mm3 (0-0.3); Eosinophils Percent Auto 4.9 % (0-4.4); Hematocrit 33.4 % (42.0-52.0); Hemoglobin 11.1 g/dL (14.0-18.0); Immature Granulocyte Absolute 0.02 K/mm3 (0.00-0.031); Immature Granulocyte Percent A 0.3 % (0-0.5); Lymphocytes Percent Auto 32.6 % (18.3-44.2); Mean Corpuscular HGB Conc 33.2 g/dl (32-36); Mean Corpuscular Hemoglobin 22.2 pg (26-34); Mean Corpuscular Volume 66.7 fl (80-100); Mean Platelet Volume 9.3 fl (7.4-10.4); Monocytes Absolute Auto 0.8 K/mm3 (0.1-0.6); Monocytes Percent Auto 10.8 % (2.6-8.5); Neutrophils Absolute Auto 3.9 K/mm3 (1.3-6.7); Neutrophils Percent Auto 50.4 % (45.5-73.1); Platelet Count Result 625 k/mm3 (150-375); Red Blood Count 5.01 M/mm3 (4.6-6.20); Red Cell Distribution Width 20.1 % (11.5-14.5); White Blood Count 7.7 K/mm3 (4.5-10.0)
--- NOTE | 2023-04-03 10:31 | PM.DS ---
DS: Admitting Diagnosis Discharge Date 04/03/2023 Admitting Diagnosis UTI Sepsis DS: Discharge Diagnosis Discharge Diagnosis (1) Paraplegia: Code(s): G82.20 - Paraplegia, unspecified Status: Chronic (2) Pyelonephritis: Code(s): N12 - Tubulo-interstitial nephritis, not specified as acute or chronic Status: Acute (3) Sepsis: Qualifiers: Sepsis acute organ dysfunction status: without acute organ dysfunction Sepsis type: sepsis due to unspecified organism Qualified Code(s): A41.9 - Sepsis, unspecified organism Code(s): A41.9 - Sepsis, unspecified organism Status: Acute DS: Summary Hospital Course Hospital Course: Patient has history of paraplegia. He has a chronic Aguilar catheter. He was admitted with sepsis secondary to UTI. Urine culture negative. Blood culture negative so far. He was started on IV cefepime. He is being discharged on oral Levaquin Time Spent with Patient Time attestation: Total time spent providing and/or coordinating discharge services: DS: Data Data Completed and Pending Labs on day of discharge: Labs from last 24 hours 04/03/23 10:05 WBC Pending RBC Pending Hgb Pending Hct Pending MCV Pending MCH Pending MCHC Pending RDW Pending Plt Count Pending MPV Pending Immature Gran % (Auto) Pending Neut % (Auto) Pending Lymph % (Auto) Pending [place] % (Auto) Pending Eos % (Auto) Pending Baso % (Auto) Pending Lymph # (Auto) Pending [place] # (Auto) Pending Eos # (Auto) Pending Baso # (Auto) Pending Abs Immat Gran (auto) Pending Absolute Neuts (auto) Pending Absolute Nucleated RBC Pending Nucleated RBC % Pending Sodium Pending Potassium Pending Chloride Pending Carbon Dioxide Pending Anion Gap Pending BUN Pending Creatinine Pending Estim Creat Clear Calc Pending Estimated GFR Pending Glucose Pending Calcium Pending Preliminary micro results at discharge 04/02/23 01:20 Blood Culture - Preliminary Blood 04/02/23 01:00 Blood Culture - Preliminary Blood Discharge Plan Discharge Discharging Clinician: Bakari Storey Anticipated Discharge Date/Time: 04/03/23 10:30 Patient Disposition: Home, Self-Care Activity: no preference Diet: regular Patient Instructions: Antibiotic Form Stand Alone Forms: General Discharge Information Follow-up/Referrals: PHYSICIAN,MINE GEOLOGIST [Primary Care Provider] - Discharge Medications: New levofloxacin 500 mg tablet 500 mg PO DAILY Qty: 5 0RF Continued pregabalin [Lyrica] 50 mg capsule 100 mg PO BID alprazolam [Xanax] 0.5 mg Tablet 0.5 mg PO PRN PRN (Reason: Anxiety) ascorbic acid (vitamin C) 500 mg Tablet 250 mg PO BID Daily Multivitamin-Minerals 1 tablet PO DAILY oxycodone-acetaminophen [Percocet] 10-325 mg Tablet 1 tablet PO Q6H polyethylene glycol 3350 [Miralax] 17 gram Powder In Packet 17 g PO DAILY lidocaine 4 % Cream 1 applic transdermal DAILY midodrine 5 mg Tablet 5 mg PO DAILY hydroxyzine HCl 25 mg Tablet 25 mg PO DAILY mirtazapine 15 mg Tablet 15 mg PO HS duloxetine 60 mg Capsule,Delayed Release(Dr/Ec) 60 mg PO HS baclofen 5 mg Tablet 5 mg PO TID ferrous sulfate 325 mg (65 mg iron) Tablet,Delayed Release (Dr/Ec) 325 mg PO DAILY 30 Days Qty: 30 0RF levofloxacin 750 mg tablet 750 mg PO DAILY 5 Days Qty: 5 0RF Date of admission: 04/02/23 04:36 Primary Care Provider: PHYSICIAN,MINE GEOLOGIST Admitting Provider: Jossy Hernandez V. Attending physician on admission: Bakari Storey Condition: Stable
[2023-04-03 10:38] LABS: Anion Gap 8 mmol/L (8-16); Blood Urea Nitrogen 15 mg/dL (9-20); Calcium 9.3 mg/dL (8.4-10.2); Carbon Dioxide 28 mmol/L (22-30); Chloride 104 mmol/L (98-107); Estimated CRCL calculation 205 ml/min; Estimated Glomerular Filt Rate > 60; Glucose 93 mg/dL (65-110); Potassium 4.1 mmol/L (3.4-5.0); Sodium 140 mmol/L (137-145)
[2023-04-03 10:40] VITALS: BP 112/71
[2023-04-03] MEDS: oxyCODONE/ACETAMINOPHEN (*CRX) 10-325 MG TABLET 1 TAB PO (10:42)
[2023-04-03 11:56] VITALS: O2SAT 99
[2023-04-03] MEDS: levoFLOXacin 750 MG TABLET PO (11:57)
[2023-04-03 12:00] LABS: Crenated RBC 1+ (NORMAL); Schistocytes None Seen (NORMAL); Target Cells 2+ (NORMAL)
[2023-04-03 12:01] LABS: Anisocytosis 2+ (NORMAL); Platelet Estimate Increased (Adequate)
[2023-04-03 14:00] VITALS: BP 88/48; PULSE 94; RESP 16; TEMP 36.2; O2SAT 100
== END 2023-04-03 14:30 ==
LOC: ANHED 04:43 → ANH3MEDSUR 05:07
PROVIDERS: Admitting Provider Hospitalist; Emergency Provider Emergency Medicine; Visit Provider Hospitalist
DX: N12 Tubulo-interstitial nephritis, not specified as acute or chronic (principal); A41.9 Sepsis, unspecified organism; G82.20 Paraplegia, unspecified; L89.159 Pressure ulcer of sacral region, unspecified stage; Z97.8 Presence of other specified devices; L89.629 Pressure ulcer of left heel, unspecified stage; L89.619 Pressure ulcer of right heel, unspecified stage; Z20.822 Contact with and (suspected) exposure to COVID-19; Z96.0 Presence of urogenital implants; F12.90 Cannabis use, unspecified, uncomplicated; Z87.891 Personal history of nicotine dependence; Z79.01 Long term (current) use of anticoagulants; Z79.891 Long term (current) use of opiate analgesic; Z79.899 Other long term (current) drug therapy; Z82.49 Family history of ischemic heart disease and other diseases of the circulatory system
CPT/HCPCS: 36415; 71045; 73630; 80048; 80053; 81001; 83605; 83690; 83735; 84145; 85025; 85610; 85652; 85730; 86140; 87040; 87086; 87636; 96361; 96365; 96366; 96367; 96372; 96375; 96376; 99285; A9270; G0378; J0692; J1650; J3370; J7030; J7040

== ENCOUNTER 2023-04-03 19:34 | Emergency (ER) | payer BC, MEDICAID, SELFPAY ==
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
--- NOTE | 2023-04-03 19:50 | ECG_ITS ---
Measurements Intervals [place] Rate: 63 P: 50 ND: 140 QRS: 38 QRSD: 89 T: 35 QT: 385 QTc: 395 Interpretive Statements SINUS RHYTHM NORMAL ECG COMPARED TO ECG 02/15/2023 18:37:25 NO SIGNIFICANT CHANGES Electronically Signed On 04-04-2023 7:44:22 CDT by Doroteo Shah D.O.
[2023-04-03 19:57] VITALS: TEMP 36.9
[2023-04-03 20:03] VITALS: BP 104/66; PULSE 67; PULSE 73; RESP 14; O2SAT 98
[2023-04-03 20:06] LABS: Basophils Absolute Auto 0.1 K/mm3 (0.0-0.1); Eosinophils Absolute Auto 0.4 K/mm3 (0-0.3); Eosinophils Percent Auto 5.9 % (0-4.4); Hemoglobin 10.7 g/dL (14.0-18.0); Immature Granulocyte Absolute 0.01 K/mm3 (0.00-0.031); Immature Granulocyte Percent A 0.1 % (0-0.5); Lymphocytes Absolute Auto 2.65 K/mm3 (0.9-3.2); Lymphocytes Percent Auto 36.1 % (18.3-44.2); Mean Corpuscular HGB Conc 33.4 g/dl (32-36); Mean Corpuscular Volume 65.7 fl (80-100); Monocytes Absolute Auto 0.8 K/mm3 (0.1-0.6); Monocytes Percent Auto 11.3 % (2.6-8.5); Neutrophils Absolute Auto 3.4 K/mm3 (1.3-6.7); Neutrophils Percent Auto 45.6 % (45.5-73.1); Platelet Count Result 628 k/mm3 (150-375); Red Blood Count 4.87 M/mm3 (4.6-6.20); White Blood Count 7.4 K/mm3 (4.5-10.0)
[2023-04-03 20:16] LABS: Prothrombin Time 13.8 Seconds (11.1-14.7)
[2023-04-03 20:17] LABS: Partial Thromboplastin Time 33.7 SECONDS (22.3-36.8)
[2023-04-03 20:26] LABS: Alanine Aminotransferase 30 U/L (6-50); Albumin Level 3.6 g/dL (3.5-5.1); Alkaline Phosphatase 131 U/L (38-126); Anion Gap 7 mmol/L (8-16); Aspartate Amino Transferase 25 U/L (17-59); Bilirubin,Total 0.3 mg/dL (0.2-1.3); Blood Urea Nitrogen 13 mg/dL (9-20); Calcium 9.4 mg/dL (8.4-10.2); Carbon Dioxide 29 mmol/L (22-30); Chloride 103 mmol/L (98-107); Estimated CRCL calculation 200 ml/min; Estimated Glomerular Filt Rate > 60; Glucose 94 mg/dL (65-110); Lipase 58 U/L (23-300); Potassium 4.2 mmol/L (3.4-5.0); Sodium 139 mmol/L (137-145)
[2023-04-03 20:27] LABS: Microcytosis 1+ (NORMAL); Platelet Estimate Increased (Adequate); Schistocytes None Seen (NORMAL)
[2023-04-03 20:28] LABS: Anisocytosis 3+ (NORMAL)
[2023-04-03 20:36] LABS: Troponin I < 0.012 ng/mL (0.000-0.034)
[2023-04-03 21:57] VITALS: BP 122/85; PULSE 63; RESP 16; O2SAT 99
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
[2023-04-03 23:00] VITALS: BP 135/84; PULSE 59; RESP 16; O2SAT 100
[2023-04-03 23:21] VITALS: BP 130/91; PULSE 95; RESP 16; O2SAT 99
--- NOTE | 2023-04-03 23:23 | PC.NURSE ---
Awaiting EMS for transport back to facility.
== END 2023-04-04 00:20 ==
PROVIDERS: Emergency Medicine; Emergency Provider Emergency Medicine
DX: J18.9 Pneumonia, unspecified organism (principal); R07.9 Chest pain, unspecified; G82.20 Paraplegia, unspecified
CPT/HCPCS: 36415; 71046; 71275; 80053; 83690; 84484; 85025; 85610; 85730; 93005; 99284; Q9967

== ENCOUNTER 2023-04-17 08:49 | Inpatient (IN) | payer BC, MEDICAID, SELFPAY ==
[2023-04-17] VITALS (12 sets, daily range): BP systolic 85–171; BP diastolic 58–120; PULSE 73–92; RESP 16–23; TEMP 36.4–36.6; O2SAT 98–100
--- NOTE | ~2023-04-17 | CT_ITS ---
EXAMINATION: CT abdomen pelvis wo con DATE: 04/25/2023 13:14 INDICATION: Upper abdominal pain. Constipation. TECHNIQUE: Computed tomography (CT) of the abdomen and pelvis was performed without intravenous contr ast. Automated exposure control and iterative reconstruction technique were employed. The dose-length product was 1224.39 mGy-cm. COMPARISON: CT abdomen and pelvis 04/17/2023, 02/14/2023 FINDINGS: The visualized portions of the lung bases demonstrate mild atelectasis. No pleural effusion . The heart size is normal. No pericardial effusion. Left-sided gynecomastia is noted. The liver is n ormal. There are gallstones in the gallbladder, which is normal in size. Calcifications in the spleen are consistent with old granulomatous disease. The pancreas, adrenal glands, and kidneys are normal. There is a large volume of stool in the colon with distention of the rectum. The appendix is normal. There are no pathologically enlarged lymph nodes. There is a small umbilical hernia containing fat. There is a sacral decubitus ulcer. There is an old healed fracture of S3 to the sacrum. There are ero sions and sclerosis of the sacrum, consistent with chronic osteomyelitis. There is sclerosis in the p elvic bones and proximal femora. IMPRESSION: 1. Large volume of stool in the colon with distention of the rectum. 2. Sacral decubitus ulcer. Chronic sacral osteomyelitis, stable from 02/14/2023. 3. Sclerosis of the pelvic bones and proximal femora, stable from 02/14/2023, likely osteonecrosis. Reviewed, dictated and finalized at location A. IMPRESSION: 1. Large volume of stool in the colon with distention of the rectum. 2. Sacral decubitus ulcer. Chronic sacral osteomyelitis, stable from 02/14/2023. 3. Sclerosis of the pelvic bones and proximal femora, stable from 02/14/2023, li naveed osteonecrosis.
--- NOTE | ~2023-04-17 | CT_ITS ---
EXAMINATION: CT abdomen pelvis w con INDICATION: Abdominal pain and urinary retention TECHNIQUE: Computed tomographic images of the abdomen and pelvis were obtained after the administrati on of 100 cc of Omnipaque 350 intravenous contrast. The dose-length product (DLP) was 860.90 mGy-cm. Automated exposure control and iterative reconstruction technique were employed. COMPARISON: 02/14/2023 FINDINGS: Moderate dependent atelectasis is present in the lung bases. The heart size is normal. The liver, spleen, pancreas, and adrenal glands are normal. Stones are present in the nondistended gallbl adder. Cysts of the kidneys measure up to 8 mm on the left. The bladder is decompressed by Gauilar cath eter. There is chronic wall thickening of the urinary bladder. There is mild fecal impaction of the r ectum. A small volume of ascites is present. Again noted is a sacral decubitus ulceration. There is s clerosis of the coccyx deep to the decubitus ulcer. No free intraperitoneal gas or evidence of bowel obstruction. No pathologically enlarged abdominal or pelvic lymph nodes are identified. IMPRESSION: 1. Bladder wall thickening, consistent with cystitis. 2. Cholelithiasis without cholecystitis. 3. Small volume of ascites. Reviewed, dictated and finalized at location F.
--- NOTE | 2023-04-17 09:11 | PC.NURSE ---
Spoke with Flori from [facility] and received report on pt.
[2023-04-17 09:40] LABS: Basophils Absolute Auto 0.2 K/mm3 (0.0-0.1); Eosinophils Absolute Auto 0.4 K/mm3 (0-0.3); Eosinophils Percent Auto 1.9 % (0-4.4); Hematocrit 47.8 % (42.0-52.0); Hemoglobin 15.6 g/dL (14.0-18.0); Immature Granulocyte Absolute 0.69 K/mm3 (0.00-0.031); Immature Granulocyte Percent A 3.2 % (0-0.5); Lymphocytes Percent Auto 17.4 % (18.3-44.2); Mean Corpuscular HGB Conc 32.6 g/dl (32-36); Mean Corpuscular Hemoglobin 22.3 pg (26-34); Mean Corpuscular Volume 68.3 fl (80-100); Mean Platelet Volume 9.3 fl (7.4-10.4); Monocytes Absolute Auto 1.3 K/mm3 (0.1-0.6); Neutrophils Absolute Auto 15.5 K/mm3 (1.3-6.7); Neutrophils Percent Auto 70.5 % (45.5-73.1); Nucleated Red Blood Cells Absolute Auto 0.1 K/mm3 (0.0-0.012); Nucleated Red Blood Cells Perc 0.5 % (0.0-0.2); Platelet Count Result 662 k/mm3 (150-375); Red Cell Distribution Width 22.5 % (11.5-14.5); White Blood Count 21.9 K/mm3 (4.5-10.0)
[2023-04-17 09:50] LABS: Alanine Aminotransferase 41 U/L (6-50); Albumin Level 4.6 g/dL (3.5-5.1); Alkaline Phosphatase 186 U/L (38-126); Anion Gap 11 mmol/L (8-16); Aspartate Amino Transferase 45 U/L (17-59); Bilirubin,Total 0.8 mg/dL (0.2-1.3); Blood Urea Nitrogen 10 mg/dL (9-20); Calcium 10.1 mg/dL (8.4-10.2); Carbon Dioxide 31 mmol/L (22-30); Chloride 103 mmol/L (98-107); Estimated Glomerular Filt Rate > 60; Glucose 130 mg/dL (65-110); Lipase 61 U/L (23-300); Potassium 3.6 mmol/L (3.4-5.0); Sodium 145 mmol/L (137-145)
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
[2023-04-17 10:28] LABS: Influenza A QL RT-PCR Negative (Negative); Influenza B QL RT-PCR Negative (Negative); SARS-CoV-2 RNA PCR Negative (Negative)
[2023-04-17] MEDS: ONDANSETRON INJ 4 MG/2 ML VIAL IV PUSH (10:31)
[2023-04-17] MEDS: PANTOPRAZOLE SODIUM IV 40 MG VIAL IV PUSH (10:31)
[2023-04-17 10:34] LABS: Hypochromasia 2+ (NORMAL); Platelet Estimate Increased (Adequate); Poikilocytosis 2+ (NORMAL)
[2023-04-17 10:35] LABS: Schistocytes None Seen (NORMAL); Target Cells 2+ (NORMAL); Tear Drop Cells 2+ (NORMAL)
[2023-04-17 10:37] LABS: Appearance Urine Clear (Clear); Bacteria Urine None Seen /hpf; Bilirubin Urine Negative (Negative); Blood Urine 1+ (Negative); Color Urine Yellow (Yellow); Glucose Urine UA Negative (Negative); Ketones Urine Negative (Negative); Leukocyte Esterase Ur Negative LEU/UL (Negative); Need Manual Microscopic Reviewed; Nitrate Urine Negative (Negative); Protein Urine Trace mg/dL (Negative); RBC Urine 21-50 /hpf (0-2); Specific Grav Ur 1.011 (1.001-1.035); Squamous Epithelial Cell Urine None seen /hpf (Few); WBC Urine 0-5 /hpf
[2023-04-17 10:38] LABS: Add Urine Microscopic? YES
--- NOTE | 2023-04-17 11:05 | PC.NURSE ---
Contacted phlebotomy for assistance on drawing blood cultures.
[2023-04-17] MEDS: SODIUM CHLORIDE 0.9% IV 500 ML 999 ML IV CONT (11:36)
[2023-04-17 11:55] LABS: Lactic Acid Reflex 4.7 mmol/L (0.7-2.0)
[2023-04-17] MEDS: SODIUM CHLORIDE 0.9% IV 1,000 ML 999 ML IV CONT ×2 (12:48→12:49)
[2023-04-17] MEDS: MORPHINE SULFATE (*CRX) 4 MG/ML INJ IV PUSH (12:49)
--- NOTE | 2023-04-17 14:34 | ADMGEN ---
This patient, Krista Cook, was admitted to Medical Room 240-. Patient/family oriented to hospital policies and general routines including ID bracelet, bed and alarms, visiting hours, pain management, procedures, bathroom and other care routines, personal items, smoking policy, room service/diet, and visiting hours. Information on how to activate the Rapid Response Team has been discussed. Patient/Family are encouraged to report perceived risks to care and to ask questions if they do not understand what they are told or what they should do.
[2023-04-17 14:39] LABS: Reflex Lactic Acid Yes or No Add Lactic
[2023-04-17 15:21] LABS: Lactic Acid 2.1 mmol/L (0.7-2.0)
[2023-04-17] MEDS: PREGABALIN (*CRX) 50 MG CAPSULE 100 MG PO (17:45)
[2023-04-17] MEDS: ASCORBIC ACID 250 MG TABLET PO (17:45)
[2023-04-17] MEDS: BACLOFEN 5 MG TABLET PO (17:45)
[2023-04-17] MEDS: ACETAMINOPHEN 325 MG TABLET 650 MG PO ×2 (17:50→22:42)
[2023-04-17] MEDS: oxyCODONE HCL (*CRX) 5 MG TAB IR PO (17:50)
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
[2023-04-17] MEDS: MIRTAZAPINE 15 MG TABLET PO (22:33)
[2023-04-17] MEDS: DULoxetine HCL 60 MG CAPSULE.DR PO (22:33)
[2023-04-17] MEDS: ALPRAZolam (*CRX) 0.5 MG TABLET PO (22:46)
[2023-04-17] MEDS: LACTATED RINGERS 1,000 ML 999 ML IV CONT (23:44)
[2023-04-18 02:28] VITALS: BP 102/70; PULSE 72; RESP 16; TEMP 36.4; O2SAT 97
[2023-04-18] MEDS: oxyCODONE HCL (*CRX) 5 MG TAB IR PO ×2 (02:36→13:55)
[2023-04-18] MEDS: ACETAMINOPHEN 325 MG TABLET 650 MG PO ×2 (02:37→13:54)
[2023-04-18 05:42] LABS: Basophils Absolute Auto 0.1 K/mm3 (0.0-0.1); Basophils Percent Auto 0.9 % (0.2-1.2); Eosinophils Absolute Auto 0.4 K/mm3 (0-0.3); Eosinophils Percent Auto 4.6 % (0-4.4); Hematocrit 32.1 % (42.0-52.0); Hemoglobin 10.6 g/dL (14.0-18.0); Immature Granulocyte Absolute 0.03 K/mm3 (0.00-0.031); Immature Granulocyte Percent A 0.3 % (0-0.5); Lymphocytes Absolute Auto 2.41 K/mm3 (0.9-3.2); Lymphocytes Percent Auto 25.6 % (18.3-44.2); Mean Corpuscular Hemoglobin 22.2 pg (26-34); Mean Corpuscular Volume 67.3 fl (80-100); Mean Platelet Volume 9.6 fl (7.4-10.4); Monocytes Percent Auto 10.5 % (2.6-8.5); Neutrophils Absolute Auto 5.5 K/mm3 (1.3-6.7); Neutrophils Percent Auto 58.1 % (45.5-73.1); Nucleated Red Blood Cells Perc 0.3 % (0.0-0.2); Platelet Count Result 436 k/mm3 (150-375); Red Blood Count 4.77 M/mm3 (4.6-6.20); Red Cell Distribution Width 20.4 % (11.5-14.5); White Blood Count 9.4 K/mm3 (4.5-10.0)
[2023-04-18 05:46] VITALS: BP 104/70; PULSE 96; RESP 14; TEMP 36.6; O2SAT 98
[2023-04-18 05:49] LABS: Anion Gap 1 mmol/L (8-16); Blood Urea Nitrogen 11 mg/dL (9-20); Calcium 8.5 mg/dL (8.4-10.2); Carbon Dioxide 33 mmol/L (22-30); Chloride 103 mmol/L (98-107); Estimated Glomerular Filt Rate > 60; Glucose 84 mg/dL (65-110); Potassium 3.8 mmol/L (3.4-5.0); Sodium 137 mmol/L (137-145)
[2023-04-18 06:01] LABS: Platelet Estimate Increased (Adequate)
[2023-04-18 06:02] LABS: Anisocytosis 2+ (NORMAL); Microcytosis 2+ (NORMAL); Schistocytes None Seen (NORMAL); Target Cells 2+ (NORMAL)
--- NOTE | 2023-04-18 07:54 | P.PNIM_ITS ---
Progress Note: A&P Assessment and Plan (1) Upper abdominal pain: Code(s): R10.10 - Upper abdominal pain, unspecified Status: Acute (2) Nausea: Code(s): R11.0 - Nausea Status: Acute (3) Elevated blood pressure reading: Code(s): R03.0 - Elevated blood-pressure reading, without diagnosis of hypertension Status: Acute (4) Paraplegia: Code(s): G82.20 - Paraplegia, unspecified Status: Chronic (5) Decubitus ulcer of sacral region, stage 3: Code(s): L89.153 - Pressure ulcer of sacral region, stage 3 Status: Acute Plan Problem List 1. upper abdominal pain * Abdomen/pelvis CT impression Bladder wall thickening, consistent with cystitis cholelithiasis without cholecystitis Small volume ascites * AST ALT and lipase within normal limits * Found to have 1 L of urine in bladder, Aguilar not all the way in place. Aguilar was replaced and bladder drained, patient reported relief of abdominal pain. * UA wbc wnl, urine cultures sent due to risk factors * Tylenol, hydrocodone/acetaminophen, oxycodone p.r.n. for pain * Patient became hypotensive around 730p, 85/58 -> given 1L LR 2. nausea * Zofran p.r.n. for nausea 3. elevated blood pressure reading * Initially elevated when he arrived to the ED on 171/115, 162/119, 158/120 -> decreased without intervention patient initially complained of headache that is now resolved with decrease in blood pressure. * Continue to monitor 4. decubitus ulcer of sacral region, stage 3 * Foul odor-> wound culture of decubitus ulcer * Wound consult * Some purulent discharge, cellulitis around the wound Start Ani Obtained wound culture Sepsis White count 20.9 and lactic acid 4.7 -> given elevations and present risks for infection (known wound, indwelling cath) patient was treated with sepsis fluid resuscitation 30 mL per kg * trend lactic acid until WNL * trend CBC/BMP * Blood cultures ordered and pending Chronic Conditions -Chronic pain: Continue home medication -Constipation: Continue home medication -Anxiety/depression: Continue home medication -long-term care: Consulted care coordination, patient unhappy with care [facility] and is requesting a new facility if possible Diet: Regular diet GI Prophylaxis: Pantoprazole 40 IV -> po Daily DVT Prophylaxis: SCDs Lines: pIV Code Status: Full code Subjective Date/time seen: 04/18/23 07:54 Interval history: I saw examined the patient. White blood trending down, afebrile, patient feels better Exam Narrative: GENERAL: Pleasant, in no acute distress. Well-nourished. - EYES: EOMI. Anicteric. - HENT: Moist mucous membranes. - LUNGS: Clear to auscultation bilateral ly, no wheezing, rhonchi, or rales. - CARDIOVASCULAR: Regular rate and rhyth m. No murmur. No JVD. - ABDOMEN: Soft, non-tender and non-dist ended. No palpable masses. - EXTREMITIES: No edema. Peripheral puls es 2+. Non-tender. - NEUROLOGIC: No focal neurological defi cits. CN II-XII grossly intact. - PSYCHIATRIC: Awake, Alert and oriented x 3. Appropriate mood and affect. - SKIN: Stage IV sacral decubitus ulcer , osmani
--- NOTE | 2023-04-18 07:54 | PM.IMPN ---
Progress Note: A&P Assessment and Plan (1) Upper abdominal pain: Code(s): R10.10 - Upper abdominal pain, unspecified Status: Acute (2) Nausea: Code(s): R11.0 - Nausea Status: Acute (3) Elevated blood pressure reading: Code(s): R03.0 - Elevated blood-pressure reading, without diagnosis of hypertension Status: Acute (4) Paraplegia: Code(s): G82.20 - Paraplegia, unspecified Status: Chronic (5) Decubitus ulcer of sacral region, stage 3: Code(s): L89.153 - Pressure ulcer of sacral region, stage 3 Status: Acute Plan Problem List 1. upper abdominal pain Abdomen/pelvis CT impression Bladder wall thickening, consistent with cystitis cholelithiasis without cholecystitis Small volume ascites AST ALT and lipase within normal limits Found to have 1 L of urine in bladder, Aguilar not all the way in place. Aguilar was replaced and bladder drained, patient reported relief of abdominal pain. UA wbc wnl, urine cultures sent due to risk factors Tylenol, hydrocodone/acetaminophen, oxycodone p.r.n. for pain Patient became hypotensive around 730p, 85/58 -> given 1L LR 2. nausea Zofran p.r.n. for nausea 3. elevated blood pressure reading Initially elevated when he arrived to the ED on 171/115, 162/119, 158/120 -> decreased without intervention patient initially complained of headache that is now resolved with decrease in blood pressure. Continue to monitor 4. decubitus ulcer of sacral region, stage 3 Foul odor-> wound culture of decubitus ulcer Wound consult Some purulent discharge, cellulitis around the wound Start Filippon Obtained wound culture Sepsis White count 20.9 and lactic acid 4.7 -> given elevations and present risks for infection (known wound, indwelling cath) patient was treated with sepsis fluid resuscitation 30 mL per kg trend lactic acid until WNL trend CBC/BMP Blood cultures ordered and pending Chronic Conditions -Chronic pain: Continue home medication -Constipation: Continue home medication -Anxiety/depression: Continue home medication -long-term care: Consulted care coordination, patient unhappy with care [facility] and is requesting a new facility if possible Diet: Regular diet GI Prophylaxis: Pantoprazole 40 IV -> po Daily DVT Prophylaxis: SCDs Lines: pIV Code Status: Full code Subjective Date/time seen: 04/18/23 07:54 Interval history: I saw examined the patient. White blood trending down, afebrile, patient feels better Exam Narrative: GENERAL: Pleasant, in no acute distress. Well-nourished. - EYES: EOMI. Anicteric. - HENT: Moist mucous membranes. - LUNGS: Clear to auscultation bilaterally, no wheezing, rhonchi, or rales. - CARDIOVASCULAR: Regular rate and rhythm. No murmur. No JVD. - ABDOMEN: Soft, non-tender and non-distended. No palpable masses. - EXTREMITIES: No edema. Peripheral pulses 2+. Non-tender. - NEUROLOGIC: No focal neurological deficits. CN II-XII grossly intact. - PSYCHIATRIC: Awake, Alert and oriented x 3. Appropriate mood and affect. - SKIN: Stage IV sacral decubitus ulcer, some purulent discharge, - LYMPH: No cervical lymphadenopathy. Objective Data Vital Signs Vital Signs: Vital Signs - 24 hr 04/17/23 08:43 04/17/23 08:50 04/17/23 09:00 Temperature 97.8 F Pulse Rate 73 Respiratory Rate 17 Blood Pressure 171/115 H 162/119 H Pulse Oximetry 99 Oxygen Delivery Room Air 04/17/23 09:15 04/17/23 09:30 04/17/23 09:35 Temperature Pulse Rate 77 87 92 Respiratory Rate 17 20 23 H Blood Pressure 154/112 H 158/120 H Pulse Oximetry 98 100 Oxygen Delivery 04/17/23 13:59 04/17/23 14:45 04/17/23 16:53 Temperature 97.6 F Pulse Rate 88 88 Respiratory Rate 16 16 Blood Pressure 117/80 101/65 Pulse Oximetry 100 100 Oxygen Delivery Room Air 04/17/23 18:00 04/17/23 19:32 04/17/23 19:43 Temperature 97.5 F L 97.9 F Pulse Rate 86 89 89
[2023-04-18 08:00] VITALS: BP 104/62; PULSE 82; PULSE 87; RESP 16; TEMP 36.4; O2SAT 99
[2023-04-18] MEDS: PANTOPRAZOLE 40 MG TABLET PO (08:52)
[2023-04-18] MEDS: FERROUS SULFATE 325 MG TABLET DR PO (08:52)
[2023-04-18] MEDS: THERAPEUTIC MULTIVITAMINS/MINERALS TAB (*BKC) 1 TABLET PO (08:52)
[2023-04-18] MEDS: ASCORBIC ACID 250 MG TABLET PO ×2 (08:52→18:03)
[2023-04-18] MEDS: BACLOFEN 5 MG TABLET PO ×3 (08:52→18:03)
[2023-04-18] MEDS: MIDODRINE HCL 2.5 MG TABLET 5 MG PO (08:52)
[2023-04-18] MEDS: PREGABALIN (*CRX) 50 MG CAPSULE 100 MG PO ×2 (08:52→18:03)
[2023-04-18] MEDS: hydrOXYzine HCL 25 MG TABLET PO (08:52)
[2023-04-18] MEDS: polyethylene glycoL 3350 17 GM POWD.PACK PO (08:53)
[2023-04-18] MEDS: DOCUSATE SODIUM 100 MG CAPSULE PO ×2 (08:53→20:20)
[2023-04-18 12:00] VITALS: BP 106/63; PULSE 82; RESP 16; TEMP 36.5; O2SAT 99
[2023-04-18 16:00] VITALS: BP 106/63; PULSE 80; RESP 16; TEMP 36.4; O2SAT 100
[2023-04-18] MEDS: PIPERACILLN/TAZ 3.375GM/NS50ML 3.375 GM/50 ML BAG IVPB ×2 (17:15→22:07)
[2023-04-18 20:00] VITALS: BP 110/63; PULSE 76; RESP 18; TEMP 36.9; O2SAT 99
[2023-04-18] MEDS: MIRTAZAPINE 15 MG TABLET PO (20:20)
[2023-04-18] MEDS: DULoxetine HCL 60 MG CAPSULE.DR PO (20:20)
[2023-04-19] VITALS (7 sets, daily range): BP systolic 101–183; BP diastolic 52–106; PULSE 57–73; RESP 16–18; TEMP 36.1–36.9; O2SAT 100; BMI 26.6
[2023-04-19] MEDS: ACETAMINOPHEN 325 MG TABLET 650 MG PO ×3 (00:09→19:41)
[2023-04-19] MEDS: PIPERACILLN/TAZ 3.375GM/NS50ML 3.375 GM/50 ML BAG IVPB ×4 (04:40→21:52)
--- NOTE | 2023-04-19 07:57 | P.PNIM_ITS ---
Progress Note: A&P Assessment and Plan (1) Upper abdominal pain: Code(s): R10.10 - Upper abdominal pain, unspecified Status: Acute (2) Nausea: Code(s): R11.0 - Nausea Status: Acute (3) Elevated blood pressure reading: Code(s): R03.0 - Elevated blood-pressure reading, without diagnosis of hypertension Status: Acute (4) Paraplegia: Code(s): G82.20 - Paraplegia, unspecified Status: Chronic (5) Decubitus ulcer of sacral region, stage 3: Code(s): L89.153 - Pressure ulcer of sacral region, stage 3 Status: Acute Plan Problem List 1. upper abdominal pain * Abdomen/pelvis CT impression Bladder wall thickening, consistent with cystitis cholelithiasis without cholecystitis Small volume ascites * AST ALT and lipase within normal limits * Found to have 1 L of urine in bladder, Aguilar not all the way in place. Aguilar was replaced and bladder drained, patient reported relief of abdominal pain. * UA wbc wnl, urine cultures sent due to risk factors * Tylenol, hydrocodone/acetaminophen, oxycodone p.r.n. for pain * Patient became hypotensive around 730p, 85/58 -> given 1L LR * Blood pressure stable 2. nausea * Zofran p.r.n. for nausea 3. elevated blood pressure reading * Initially elevated when he arrived to the ED on 171/115, 162/119, 158/120 -> decreased without intervention patient initially complained of headache that is now resolved with decrease in blood pressure. * Continue to monitor 4. decubitus ulcer of sacral region, stage 3 * Foul odor-> wound culture of decubitus ulcer * Wound consult * Some purulent discharge, cellulitis around the wound Start Zosyn Obtained wound culture grows g negative bacilli Gram-positive bacilli Sepsis White count 20.9 and lactic acid 4.7 -> given elevations and present risks for infection (known wound, indwelling cath) patient was treated with sepsis fluid resuscitation 30 mL per kg * trend lactic acid until WNL * trend CBC/BMP * Blood cultures ordered and pending Chronic Conditions -Chronic pain: Continue home medication -Constipation: Continue home medication -Anxiety/depression: Continue home medication -long-term care: Consulted care coordination, patient unhappy with care [facility] and is requesting a new facility if possible Diet: Regular diet GI Prophylaxis: Pantoprazole 40 IV -> po Daily DVT Prophylaxis: SCDs Lines: pIV Code Status: Full code Subjective Date/time seen: 04/19/23 07:57 Interval history: I saw examined the patient. White blood trending down, afebrile, patient feels better, wound culture grows Gram-negative bacilli and Gram-positive bacilli Exam Narrative: GENERAL: Pleasant, in no acute distress. Well-nourished. - EYES: EOMI. Anicteric. - HENT: Moist mucous membranes. - LUNGS: Clear to auscultation bilateral ly, no wheezing, rhonchi, or rales. - CARDIOVASCULAR: Regular rate and rhyth m. No murmur. No JVD. - ABDOMEN: Soft, non-tender and non-dist ended. No palpable masses. - EXTREMITIES: No edema. Peripheral puls es 2+. Non-tender. - NEUROLOGIC: No focal neurological defi cits. CN II-XII grossly intact. - PSYCHIATRIC: Awake, Aler
--- NOTE | 2023-04-19 07:57 | PM.IMPN ---
Progress Note: A&P Assessment and Plan (1) Upper abdominal pain: Code(s): R10.10 - Upper abdominal pain, unspecified Status: Acute (2) Nausea: Code(s): R11.0 - Nausea Status: Acute (3) Elevated blood pressure reading: Code(s): R03.0 - Elevated blood-pressure reading, without diagnosis of hypertension Status: Acute (4) Paraplegia: Code(s): G82.20 - Paraplegia, unspecified Status: Chronic (5) Decubitus ulcer of sacral region, stage 3: Code(s): L89.153 - Pressure ulcer of sacral region, stage 3 Status: Acute Plan Problem List 1. upper abdominal pain Abdomen/pelvis CT impression Bladder wall thickening, consistent with cystitis cholelithiasis without cholecystitis Small volume ascites AST ALT and lipase within normal limits Found to have 1 L of urine in bladder, Aguilar not all the way in place. Aguilar was replaced and bladder drained, patient reported relief of abdominal pain. UA wbc wnl, urine cultures sent due to risk factors Tylenol, hydrocodone/acetaminophen, oxycodone p.r.n. for pain Patient became hypotensive around 730p, 85/58 -> given 1L LR Blood pressure stable 2. nausea Zofran p.r.n. for nausea 3. elevated blood pressure reading Initially elevated when he arrived to the ED on 171/115, 162/119, 158/120 -> decreased without intervention patient initially complained of headache that is now resolved with decrease in blood pressure. Continue to monitor 4. decubitus ulcer of sacral region, stage 3 Foul odor-> wound culture of decubitus ulcer Wound consult Some purulent discharge, cellulitis around the wound Start Zosyn Obtained wound culture grows g negative bacilli Gram-positive bacilli Sepsis White count 20.9 and lactic acid 4.7 -> given elevations and present risks for infection (known wound, indwelling cath) patient was treated with sepsis fluid resuscitation 30 mL per kg trend lactic acid until WNL trend CBC/BMP Blood cultures ordered and pending Chronic Conditions -Chronic pain: Continue home medication -Constipation: Continue home medication -Anxiety/depression: Continue home medication -long-term care: Consulted care coordination, patient unhappy with care [facility] and is requesting a new facility if possible Diet: Regular diet GI Prophylaxis: Pantoprazole 40 IV -> po Daily DVT Prophylaxis: SCDs Lines: pIV Code Status: Full code Subjective Date/time seen: 04/19/23 07:57 Interval history: I saw examined the patient. White blood trending down, afebrile, patient feels better, wound culture grows Gram-negative bacilli and Gram-positive bacilli Exam Narrative: GENERAL: Pleasant, in no acute distress. Well-nourished. - EYES: EOMI. Anicteric. - HENT: Moist mucous membranes. - LUNGS: Clear to auscultation bilaterally, no wheezing, rhonchi, or rales. - CARDIOVASCULAR: Regular rate and rhythm. No murmur. No JVD. - ABDOMEN: Soft, non-tender and non-distended. No palpable masses. - EXTREMITIES: No edema. Peripheral pulses 2+. Non-tender. - NEUROLOGIC: No focal neurological deficits. CN II-XII grossly intact. - PSYCHIATRIC: Awake, Alert and oriented x 3. Appropriate mood and affect. - SKIN: Stage IV sacral decubitus ulcer, some purulent discharge, - LYMPH: No cervical lymphadenopathy. Objective Data Vital Signs Vital Signs: Vital Signs - 24 hr 04/18/23 08:00 04/18/23 12:00 04/18/23 08:00 Temperature 97.6 F 97.7 F Pulse Rate 87 82 82 Respiratory Rate 16 16 16 Blood Pressure 104/62 106/63 Pulse Oximetry 99 99 99 Oxygen Delivery Room Air 04/18/23 16:00 04/18/23 20:00 04/18/23 20:00 Temperature 97.6 F 98.4 F Pulse Rate 80 76 Respiratory Rate 16 18 Blood Pressure 106/63 110/63 Pulse Oximetry 100 99 Oxygen Delivery Room Air 04/19/23 00:00 04/19/23 01:13 04/19/23 04:00 Temperature 98.4 F 97.7 F Pulse Rate 73 61 Respiratory Rate 18 18 Blood Pressure 183
[2023-04-19] MEDS: MIDODRINE HCL 2.5 MG TABLET 5 MG PO (08:38)
[2023-04-19] MEDS: PANTOPRAZOLE 40 MG TABLET PO (08:38)
[2023-04-19] MEDS: THERAPEUTIC MULTIVITAMINS/MINERALS TAB (*BKC) 1 TABLET PO (08:38)
[2023-04-19] MEDS: ASCORBIC ACID 250 MG TABLET PO ×2 (08:38→16:52)
[2023-04-19] MEDS: FERROUS SULFATE 325 MG TABLET DR PO (08:38)
[2023-04-19] MEDS: PREGABALIN (*CRX) 50 MG CAPSULE 100 MG PO ×2 (08:38→16:52)
[2023-04-19] MEDS: DOCUSATE SODIUM 100 MG CAPSULE PO ×2 (08:38→19:41)
[2023-04-19] MEDS: BACLOFEN 5 MG TABLET PO ×3 (08:38→16:52)
[2023-04-19] MEDS: hydrOXYzine HCL 25 MG TABLET PO (08:38)
[2023-04-19] MEDS: polyethylene glycoL 3350 17 GM POWD.PACK PO (08:39)
[2023-04-19] MEDS: oxyCODONE HCL (*CRX) 5 MG TAB IR PO ×2 (08:42→19:41)
[2023-04-19] MEDS: SILVERGEL (ELTA) 45 ML 1 APPLIC TOPICAL (11:01)
[2023-04-19] MEDS: MIRTAZAPINE 15 MG TABLET PO (19:41)
[2023-04-19] MEDS: DULoxetine HCL 60 MG CAPSULE.DR PO (19:41)
[2023-04-19] MEDS: ALPRAZolam (*CRX) 0.5 MG TABLET PO (19:46)
[2023-04-20] VITALS (7 sets, daily range): BP systolic 80–112; BP diastolic 42–74; PULSE 57–94; RESP 16–18; TEMP 36.1–36.4; O2SAT 99–100
[2023-04-20] MEDS: PIPERACILLN/TAZ 3.375GM/NS50ML 3.375 GM/50 ML BAG IVPB ×4 (05:17→21:15)
[2023-04-20] MEDS: SILVERGEL (ELTA) 45 ML 1 APPLIC TOPICAL (10:14)
[2023-04-20] MEDS: ASCORBIC ACID 250 MG TABLET PO ×2 (10:14→17:24)
[2023-04-20] MEDS: BACLOFEN 5 MG TABLET PO ×2 (10:14→17:24)
[2023-04-20] MEDS: THERAPEUTIC MULTIVITAMINS/MINERALS TAB (*BKC) 1 TABLET PO (10:15)
[2023-04-20] MEDS: DOCUSATE SODIUM 100 MG CAPSULE PO ×2 (10:15→21:15)
[2023-04-20] MEDS: FERROUS SULFATE 325 MG TABLET DR PO (10:15)
[2023-04-20] MEDS: MIDODRINE HCL 2.5 MG TABLET 5 MG PO (10:15)
[2023-04-20] MEDS: PREGABALIN (*CRX) 50 MG CAPSULE 100 MG PO ×2 (10:15→17:24)
[2023-04-20] MEDS: polyethylene glycoL 3350 17 GM POWD.PACK PO (10:15)
[2023-04-20] MEDS: hydrOXYzine HCL 25 MG TABLET PO (10:15)
[2023-04-20] MEDS: PANTOPRAZOLE 40 MG TABLET PO (10:15)
--- NOTE | 2023-04-20 13:25 | P.PNIM_ITS ---
Progress Note: A&P Assessment and Plan (1) Upper abdominal pain: Code(s): R10.10 - Upper abdominal pain, unspecified Status: Acute (2) Nausea: Code(s): R11.0 - Nausea Status: Acute (3) Elevated blood pressure reading: Code(s): R03.0 - Elevated blood-pressure reading, without diagnosis of hypertension Status: Acute (4) Paraplegia: Code(s): G82.20 - Paraplegia, unspecified Status: Chronic (5) Decubitus ulcer of sacral region, stage 3: Code(s): L89.153 - Pressure ulcer of sacral region, stage 3 Status: Acute Plan Problem List 1. upper abdominal pain * Abdomen/pelvis CT impression Bladder wall thickening, consistent with cystitis cholelithiasis without cholecystitis Small volume ascites * AST ALT and lipase within normal limits * Found to have 1 L of urine in bladder, Aguilar not all the way in place. Aguilar was replaced and bladder drained, patient reported relief of abdominal pain. * UA wbc wnl, urine cultures sent due to risk factors * Tylenol, hydrocodone/acetaminophen, oxycodone p.r.n. for pain * Patient became hypotensive around 730p, 85/58 -> given 1L LR * Blood pressure stable 2. nausea * Zofran p.r.n. for nausea 3. elevated blood pressure reading * Initially elevated when he arrived to the ED on 171/115, 162/119, 158/120 -> decreased without intervention patient initially complained of headache that is now resolved with decrease in blood pressure. * Continue to monitor 4. decubitus ulcer of sacral region, stage 3 * Foul odor-> wound culture of decubitus ulcer * Wound consult * continue to follow wound care recommendations * Some purulent discharge, cellulitis around the wound Start Zosyn Obtained wound culture grows g negative bacilli Gram-positive bacilli Sepsis resolved wcc are nl Chronic Conditions -Chronic pain: Continue home medication -Constipation: Continue home medication -Anxiety/depression: Continue home medication -long-term care: Consulted care coordination, patient unhappy with care [facility] and is requesting a new facility if possible Subjective Date/time seen: 04/20/23 13:25 Interval history: Pt is 27 year old paraplegia admitted with cystitis and decubitus ulcer patient feels better, wound culture grows Gram-negative bacilli and Gram-positive bacilli pt is being treated with iv zosyn Continue to treat hopeful Dc in 1-2 days time Review of Systems Review of Systems: Ongoing bottom pain Exam Narrative: GENERAL: Pleasant, in no acute distress. Well-nourished. - EYES: EOMI. Anicteric. - HENT: Moist mucous membranes. - LUNGS: Clear to auscultation bilateral ly, no wheezing, rhonchi, or rales. - CARDIOVASCULAR: Regular rate and rhyth m. No murmur. No JVD. - ABDOMEN: Soft, non-tender and non-dist ended. No palpable masses. - EXTREMITIES: No edema. Peripheral puls es 2+. Non-tender. - NEUROLOGIC: No focal neurological defi cits. CN II-XII grossly intact. - PSYCHIATRIC: Awake, Alert and oriented x 3. Appropriate mood and affect. - SKIN: Stage IV sacral decubitus ulcer , some p
--- NOTE | 2023-04-20 13:25 | PM.IMPN ---
Progress Note: A&P Assessment and Plan (1) Upper abdominal pain: Code(s): R10.10 - Upper abdominal pain, unspecified Status: Acute (2) Nausea: Code(s): R11.0 - Nausea Status: Acute (3) Elevated blood pressure reading: Code(s): R03.0 - Elevated blood-pressure reading, without diagnosis of hypertension Status: Acute (4) Paraplegia: Code(s): G82.20 - Paraplegia, unspecified Status: Chronic (5) Decubitus ulcer of sacral region, stage 3: Code(s): L89.153 - Pressure ulcer of sacral region, stage 3 Status: Acute Plan Problem List 1. upper abdominal pain Abdomen/pelvis CT impression Bladder wall thickening, consistent with cystitis cholelithiasis without cholecystitis Small volume ascites AST ALT and lipase within normal limits Found to have 1 L of urine in bladder, Aguilar not all the way in place. Aguilar was replaced and bladder drained, patient reported relief of abdominal pain. UA wbc wnl, urine cultures sent due to risk factors Tylenol, hydrocodone/acetaminophen, oxycodone p.r.n. for pain Patient became hypotensive around 730p, 85/58 -> given 1L LR Blood pressure stable 2. nausea Zofran p.r.n. for nausea 3. elevated blood pressure reading Initially elevated when he arrived to the ED on 171/115, 162/119, 158/120 -> decreased without intervention patient initially complained of headache that is now resolved with decrease in blood pressure. Continue to monitor 4. decubitus ulcer of sacral region, stage 3 Foul odor-> wound culture of decubitus ulcer Wound consult continue to follow wound care recommendations Some purulent discharge, cellulitis around the wound Start Zosyn Obtained wound culture grows g negative bacilli Gram-positive bacilli Sepsis resolved wcc are nl Chronic Conditions -Chronic pain: Continue home medication -Constipation: Continue home medication -Anxiety/depression: Continue home medication -long-term care: Consulted care coordination, patient unhappy with care [facility] and is requesting a new facility if possible Subjective Date/time seen: 04/20/23 13:25 Interval history: Pt is 27 year old paraplegia admitted with cystitis and decubitus ulcer patient feels better, wound culture grows Gram-negative bacilli and Gram-positive bacilli pt is being treated with iv zosyn Continue to treat hopeful Dc in 1-2 days time Review of Systems Review of Systems: Ongoing bottom pain Exam Narrative: GENERAL: Pleasant, in no acute distress. Well-nourished. - EYES: EOMI. Anicteric. - HENT: Moist mucous membranes. - LUNGS: Clear to auscultation bilaterally, no wheezing, rhonchi, or rales. - CARDIOVASCULAR: Regular rate and rhythm. No murmur. No JVD. - ABDOMEN: Soft, non-tender and non-distended. No palpable masses. - EXTREMITIES: No edema. Peripheral pulses 2+. Non-tender. - NEUROLOGIC: No focal neurological deficits. CN II-XII grossly intact. - PSYCHIATRIC: Awake, Alert and oriented x 3. Appropriate mood and affect. - SKIN: Stage IV sacral decubitus ulcer, some purulent discharge, - LYMPH: No cervical lymphadenopathy. Objective Data Vital Signs Vital Signs: Vital Signs - 24 hr 04/19/23 16:46 04/19/23 20:00 04/19/23 20:00 Temperature 36.1 C L 36.7 C Pulse Rate 61 61 64 Respiratory Rate 18 18 18 Blood Pressure 109/62 120/74 Pulse Oximetry 100 100 100 Oxygen Delivery Room Air 04/20/23 00:00 04/20/23 04:00 04/20/23 08:00 Temperature 36.4 C L 36.4 C Pulse Rate 94 68 Respiratory Rate 16 16 Blood Pressure 80/42 L 106/65 Pulse Oximetry 100 99 99 Oxygen Delivery Room Air Intake/Output Intake/Output: Intake & Output 04/17/23 04/18/23 04/19/23 04/20/23 23:59 23:59 23:59 23:59 Intake Total 3090 2800 1230 100 Output Total 1050 2300 3700 1800 Balance 2040 500 -2470 -1700 Meds/Results Medications: Active Medications Generic Name Dose Route Start
[2023-04-20] MEDS: oxyCODONE HCL (*CRX) 5 MG TAB IR PO (18:16)
[2023-04-20 21:04] LABS: Hematocrit 33.2 % (42.0-52.0); Hemoglobin 11.2 g/dL (14.0-18.0); Mean Corpuscular HGB Conc 33.7 g/dl (32-36); Mean Corpuscular Hemoglobin 22.4 pg (26-34); Mean Corpuscular Volume 66.5 fl (80-100); Mean Platelet Volume 9.7 fl (7.4-10.4); Platelet Count Result 466 k/mm3 (150-375); Red Blood Count 4.99 M/mm3 (4.6-6.20); Red Cell Distribution Width 20.5 % (11.5-14.5); White Blood Count 6.3 K/mm3 (4.5-10.0)
[2023-04-20 21:13] LABS: Anion Gap 6 mmol/L (8-16); Blood Urea Nitrogen 11 mg/dL (9-20); Calcium 9.3 mg/dL (8.4-10.2); Carbon Dioxide 29 mmol/L (22-30); Chloride 103 mmol/L (98-107); Estimated CRCL calculation 174 ml/min; Estimated Glomerular Filt Rate > 60; Glucose 78 mg/dL (65-110); Potassium 3.9 mmol/L (3.4-5.0); Sodium 138 mmol/L (137-145)
[2023-04-20] MEDS: ALPRAZolam (*CRX) 0.5 MG TABLET PO (21:14)
[2023-04-20] MEDS: DULoxetine HCL 60 MG CAPSULE.DR PO (21:15)
[2023-04-20] MEDS: MIRTAZAPINE 15 MG TABLET PO (21:15)
[2023-04-21 02:56] VITALS: BP 103/60; PULSE 70; RESP 18; TEMP 36.4; O2SAT 100
[2023-04-21] MEDS: PIPERACILLN/TAZ 3.375GM/NS50ML 3.375 GM/50 ML BAG IVPB ×2 (03:26→09:28)
[2023-04-21] MEDS: oxyCODONE HCL (*CRX) 5 MG TAB IR PO ×2 (04:23→13:55)
[2023-04-21 08:00] VITALS: BP 108/61; PULSE 68; RESP 18; TEMP 36.4; O2SAT 99
--- NOTE | 2023-04-21 08:59 | P.PNIM_ITS ---
Progress Note: A&P Assessment and Plan (1) Upper abdominal pain: Code(s): R10.10 - Upper abdominal pain, unspecified Status: Acute (2) Nausea: Code(s): R11.0 - Nausea Status: Acute (3) Elevated blood pressure reading: Code(s): R03.0 - Elevated blood-pressure reading, without diagnosis of hypertension Status: Acute (4) Paraplegia: Code(s): G82.20 - Paraplegia, unspecified Status: Chronic (5) Decubitus ulcer of sacral region, stage 3: Code(s): L89.153 - Pressure ulcer of sacral region, stage 3 Status: Acute Plan Problem List 1. upper abdominal pain * Abdomen/pelvis CT impression Bladder wall thickening, consistent with cystitis cholelithiasis without cholecystitis Small volume ascites 2. nausea * Zofran p.r.n. for nausea 3. elevated blood pressure reading * Resolved 4. decubitus ulcer of sacral region, stage 3 * Foul odor-> wound culture of decubitus ulcer * Wound consult * continue to follow wound care recommendations * Some purulent discharge, cellulitis around the wound Started on iv Zosyn Obtained wound culture grows g negative bacilli Gram-positive bacilli Hopeful dc on wednesday 5. Sepsis resolved wcc are nl Chronic Conditions -Chronic pain: Continue home medication -Constipation: Continue home medication -Anxiety/depression: Continue home medication -long-term care: Consulted care coordination, patient unhappy with care [facility] and is requesting a new facility if possible Subjective Date/time seen: 04/21/23 08:59 Interval history: Pt is 27 year old paraplegia admitted with cystitis and decubitus ulcer patient feels better, wound culture grows Gram-negative bacilli and Gram-positive bacilli pt is being treated with iv zosyn Continue to treat hopeful Dc on wednesday Pt currently from [facility] in [place] pt wants to go to another facility states they do not have wound care in [facility] behavioral health case manager looking into another placement Review of Systems Review of Systems: Sore bottom area Exam Narrative: GENERAL: Pleasant, in no acute distress. Well-nourished. - EYES: EOMI. Anicteric. - HENT: Moist mucous membranes. - LUNGS: Clear to auscultation bilateral ly, no wheezing, rhonchi, or rales. - CARDIOVASCULAR: Regular rate and rhyth m. No murmur. No JVD. - ABDOMEN: Soft, non-tender and non-dist ended. No palpable masses. - EXTREMITIES: No edema. Peripheral puls es 2+. Non-tender. - NEUROLOGIC: No focal neurological defi cits. CN II-XII grossly intact. - PSYCHIATRIC: Awake, Alert and oriented x 3. Appropriate mood and affect. - SKIN: Stage IV sacral decubitus ulcer , some purulent discharge, - LYMPH: No cervical lymphadenopathy. Objective Data Vital Signs Vital Signs: Vital Signs - 24 hr 04/20/23 12:00 04/20/23 16:00 04/20/23 19:43 Temperature 36.4 C 36.4 C 36.1 C L Pulse Rate 62 60 57 L Respiratory Rate 17 16 18
--- NOTE | 2023-04-21 08:59 | PM.IMPN ---
Progress Note: A&P Assessment and Plan (1) Upper abdominal pain: Code(s): R10.10 - Upper abdominal pain, unspecified Status: Acute (2) Nausea: Code(s): R11.0 - Nausea Status: Acute (3) Elevated blood pressure reading: Code(s): R03.0 - Elevated blood-pressure reading, without diagnosis of hypertension Status: Acute (4) Paraplegia: Code(s): G82.20 - Paraplegia, unspecified Status: Chronic (5) Decubitus ulcer of sacral region, stage 3: Code(s): L89.153 - Pressure ulcer of sacral region, stage 3 Status: Acute Plan Problem List 1. upper abdominal pain Abdomen/pelvis CT impression Bladder wall thickening, consistent with cystitis cholelithiasis without cholecystitis Small volume ascites 2. nausea Zofran p.r.n. for nausea 3. elevated blood pressure reading Resolved 4. decubitus ulcer of sacral region, stage 3 Foul odor-> wound culture of decubitus ulcer Wound consult continue to follow wound care recommendations Some purulent discharge, cellulitis around the wound Started on iv Zosyn Obtained wound culture grows g negative bacilli Gram-positive bacilli Hopeful dc on wednesday 5. Sepsis resolved wcc are nl Chronic Conditions -Chronic pain: Continue home medication -Constipation: Continue home medication -Anxiety/depression: Continue home medication -long-term care: Consulted care coordination, patient unhappy with care [facility] and is requesting a new facility if possible Subjective Date/time seen: 04/21/23 08:59 Interval history: Pt is 27 year old paraplegia admitted with cystitis and decubitus ulcer patient feels better, wound culture grows Gram-negative bacilli and Gram-positive bacilli pt is being treated with iv zosyn Continue to treat hopeful Dc on wednesday Pt currently from [facility] in [place] pt wants to go to another facility states they do not have wound care in [facility] family independence case manager looking into another placement Review of Systems Review of Systems: Sore bottom area Exam Narrative: GENERAL: Pleasant, in no acute distress. Well-nourished. - EYES: EOMI. Anicteric. - HENT: Moist mucous membranes. - LUNGS: Clear to auscultation bilaterally, no wheezing, rhonchi, or rales. - CARDIOVASCULAR: Regular rate and rhythm. No murmur. No JVD. - ABDOMEN: Soft, non-tender and non-distended. No palpable masses. - EXTREMITIES: No edema. Peripheral pulses 2+. Non-tender. - NEUROLOGIC: No focal neurological deficits. CN II-XII grossly intact. - PSYCHIATRIC: Awake, Alert and oriented x 3. Appropriate mood and affect. - SKIN: Stage IV sacral decubitus ulcer, some purulent discharge, - LYMPH: No cervical lymphadenopathy. Objective Data Vital Signs Vital Signs: Vital Signs - 24 hr 04/20/23 12:00 04/20/23 16:00 04/20/23 19:43 Temperature 36.4 C 36.4 C 36.1 C L Pulse Rate 62 60 57 L Respiratory Rate 17 16 18 Blood Pressure 108/62 112/74 107/67 Pulse Oximetry 100 100 99 Oxygen Delivery 04/20/23 20:00 04/20/23 23:43 04/21/23 02:56 Temperature 36.1 C L 36.4 C Pulse Rate 85 70 Respiratory Rate 18 18 Blood Pressure 101/60 103/60 Pulse Oximetry 99 100 Oxygen Delivery Room Air Intake/Output Intake/Output: Intake & Output 04/18/23 04/19/23 04/20/23 04/21/23 23:59 23:59 23:59 23:59 Intake Total 2800 1230 200 440 Output Total 2300 3700 4350 500 Balance 500 -0650 -4150 -60 Meds/Results Medications: Active Medications Generic Name Dose Route Start Last Admin Trade Name Freq PRN Reason Stop Dose Admin Acetaminophen 650 mg 04/17/23 17:16 04/19/23 19:41 Acetaminophen 325 Mg Tablet PO 650 mg Q4H PRN Administration Mild Pain (1-3) or Fever Hydrocodone Bitart/Acetaminophen 1 tab 04/17/23 17:16 Hydrocodone/Acetaminophen (*Crx) 5-325 Mg Tablet PO Q4H PRN Moderate Pain (4-6) Alprazolam 0.5 mg 04/17/23 16:44
[2023-04-21] MEDS: DOCUSATE SODIUM 100 MG CAPSULE PO ×2 (09:27→20:20)
[2023-04-21] MEDS: BACLOFEN 5 MG TABLET PO ×3 (09:27→17:00)
[2023-04-21] MEDS: hydrOXYzine HCL 25 MG TABLET PO (09:27)
[2023-04-21] MEDS: MIDODRINE HCL 2.5 MG TABLET 5 MG PO (09:27)
[2023-04-21] MEDS: PREGABALIN (*CRX) 50 MG CAPSULE 100 MG PO ×2 (09:27→17:00)
[2023-04-21] MEDS: FERROUS SULFATE 325 MG TABLET DR PO (09:27)
[2023-04-21] MEDS: PANTOPRAZOLE 40 MG TABLET PO (09:27)
[2023-04-21] MEDS: SILVERGEL (ELTA) 45 ML 1 APPLIC TOPICAL (09:28)
[2023-04-21] MEDS: polyethylene glycoL 3350 17 GM POWD.PACK PO (09:28)
[2023-04-21] MEDS: THERAPEUTIC MULTIVITAMINS/MINERALS TAB (*BKC) 1 TABLET PO (09:28)
[2023-04-21] MEDS: ASCORBIC ACID 250 MG TABLET PO ×2 (09:28→17:00)
[2023-04-21 12:00] VITALS: BP 104/62; PULSE 65; RESP 17; TEMP 36.5; O2SAT 99
[2023-04-21 16:00] VITALS: BP 110/69; PULSE 70; RESP 18; TEMP 36.4; O2SAT 100
[2023-04-21] MEDS: AMOXICILLIN/CLAVULANATE K 875-125 MG TAB 1 TABLET PO (17:00)
[2023-04-21] MEDS: LIDOCAINE 5% PATCH 1 PATCH TRANSDERM (18:08)
[2023-04-21 19:44] VITALS: BP 104/62; PULSE 81; RESP 17; TEMP 36.8; O2SAT 99
[2023-04-21] MEDS: MIRTAZAPINE 15 MG TABLET PO (20:20)
[2023-04-21] MEDS: ALPRAZolam (*CRX) 0.5 MG TABLET PO (20:20)
[2023-04-21] MEDS: DULoxetine HCL 60 MG CAPSULE.DR PO (20:20)
[2023-04-21 23:39] VITALS: BP 104/62; PULSE 85; RESP 17; TEMP 36.8; O2SAT 99
[2023-04-22] MEDS: oxyCODONE HCL (*CRX) 5 MG TAB IR PO ×2 (00:27→10:25)
[2023-04-22 03:45] VITALS: BP 107/75; PULSE 88; RESP 17; TEMP 36.3; O2SAT 98
--- NOTE | 2023-04-22 06:45 | PC.NURSE ---
On 04/22/23, the sIauro Guevara, provided care and completed [employer] documentation on this patient. I have reviewed the student's documentation and agree with the findings.
[2023-04-22] MEDS: LIDOCAINE 5% PATCH 1 PATCH TRANSDERM (08:56)
[2023-04-22] MEDS: hydrOXYzine HCL 25 MG TABLET PO (08:57)
[2023-04-22] MEDS: PANTOPRAZOLE 40 MG TABLET PO (08:57)
[2023-04-22] MEDS: DOCUSATE SODIUM 100 MG CAPSULE PO ×2 (08:57→20:04)
[2023-04-22] MEDS: polyethylene glycoL 3350 17 GM POWD.PACK PO (08:57)
[2023-04-22] MEDS: MIDODRINE HCL 2.5 MG TABLET 5 MG PO (08:57)
[2023-04-22] MEDS: FERROUS SULFATE 325 MG TABLET DR PO (08:57)
[2023-04-22] MEDS: ASCORBIC ACID 250 MG TABLET PO ×2 (08:57→17:00)
[2023-04-22] MEDS: BACLOFEN 5 MG TABLET PO ×3 (08:57→17:00)
[2023-04-22] MEDS: PREGABALIN (*CRX) 50 MG CAPSULE 100 MG PO ×2 (08:57→17:00)
[2023-04-22] MEDS: AMOXICILLIN/CLAVULANATE K 875-125 MG TAB 1 TABLET PO ×2 (08:57→17:00)
[2023-04-22] MEDS: THERAPEUTIC MULTIVITAMINS/MINERALS TAB (*BKC) 1 TABLET PO (08:57)
[2023-04-22] MEDS: SILVERGEL (ELTA) 45 ML 1 APPLIC TOPICAL (09:03)
[2023-04-22 10:45] LABS: Hematocrit 34.6 % (42.0-52.0); Hemoglobin 11.4 g/dL (14.0-18.0); Mean Corpuscular HGB Conc 32.9 g/dl (32-36); Mean Corpuscular Hemoglobin 22.1 pg (26-34); Mean Corpuscular Volume 67.1 fl (80-100); Mean Platelet Volume 9.2 fl (7.4-10.4); Platelet Count Result 449 k/mm3 (150-375); Red Blood Count 5.16 M/mm3 (4.6-6.20); Red Cell Distribution Width 20.5 % (11.5-14.5); White Blood Count 5.7 K/mm3 (4.5-10.0)
[2023-04-22 10:57] LABS: Anion Gap 8 mmol/L (8-16); Blood Urea Nitrogen 14 mg/dL (9-20); Calcium 9.6 mg/dL (8.4-10.2); Carbon Dioxide 32 mmol/L (22-30); Chloride 99 mmol/L (98-107); Estimated CRCL calculation 174 ml/min; Estimated Glomerular Filt Rate > 60; Glucose 125 mg/dL (65-110); Potassium 3.7 mmol/L (3.4-5.0); Sodium 139 mmol/L (137-145)
[2023-04-22] MEDS: ALPRAZolam (*CRX) 0.5 MG TABLET PO ×2 (11:39→20:04)
[2023-04-22 15:10] VITALS: BP 104/61; PULSE 78; RESP 16; TEMP 36.6; O2SAT 100
--- NOTE | 2023-04-22 17:26 | P.PNIM_ITS ---
Progress Note: A&P Assessment and Plan (1) Upper abdominal pain: Code(s): R10.10 - Upper abdominal pain, unspecified Status: Acute (2) Nausea: Code(s): R11.0 - Nausea Status: Acute (3) Elevated blood pressure reading: Code(s): R03.0 - Elevated blood-pressure reading, without diagnosis of hypertension Status: Acute (4) Paraplegia: Code(s): G82.20 - Paraplegia, unspecified Status: Chronic (5) Decubitus ulcer of sacral region, stage 3: Code(s): L89.153 - Pressure ulcer of sacral region, stage 3 Status: Acute Plan 1. upper abdominal pain * Abdomen/pelvis CT impression Bladder wall thickening, consistent with cystitis cholelithiasis without cholecystitis Small volume ascites Lactic acidosis 4.7 on admission which has resolved now 2. nausea * Zofran p.r.n. for nausea 3. elevated blood pressure reading * Resolved 4. decubitus ulcer of sacral region, stage 3 * Foul odor-> wound culture of decubitus ulcer * Wound consult * continue to follow wound care recommendations * Some purulent discharge, cellulitis around the wound Started on iv Zosyn Wound culture with mixed FR again is on a questionable signal. Growth did not detect the presence of S aureus enzyme a lytic streptococci are Pseudomonas. Antibiotic and switched to Augmentin 5. Sepsis resolved wcc are nl Chronic Conditions -Chronic pain: Continue home medication -Constipation: Continue home medication -Anxiety/depression: Continue home medication -long-term care: Consulted care coordination, patient unhappy with care [facility] and is requesting a new facility if possible Constipation will do milk of magnesium. Enema if needed p.r.n. Subjective Date/time seen: 04/22/23 17:26 Interval history: Pt is 27 year old paraplegia admitted with cystitis and decubitus ulcer patient feels better, wound culture grows Gram-negative bacilli and Gram-positive bacilli pt is being treated with iv zosyn Pt currently from [facility] in [place] pt wants to go to another facility states they do not have wound care in [facility] immigration case worker looking into another placement Has not had any bowel movement for past few days Review of Systems Review of Systems: All systems reviewed & are unremarkable except as noted in HPI and below Exam Narrative: GENERAL: Pleasant, in no acute distress. Well-nourished. - EYES: EOMI. Anicteric. - HENT: Moist mucous membranes. - LUNGS: Clear to auscultation bilateral ly, no wheezing, rhonchi, or rales. - CARDIOVASCULAR: Regular rate and rhyth m. No murmur. No JVD. - ABDOMEN: Soft, non-tender and non-dist ended. No palpable masses. - EXTREMITIES: No edema. Peripheral puls es 2+. Non-tender. - NEUROLOGIC: No focal neurological defi cits. CN II-XII grossly intact. - PSYCHIATRIC: Awake, Alert and oriented x 3. Appropriate mood and affect. - SKIN: Stage IV sacral decubitus ulcer , some purulent discharge, - LYMPH: No cervical lymphadenopathy. Objective Data Vital Signs Vital Signs:
--- NOTE | 2023-04-22 17:26 | PM.IMPN ---
Progress Note: A&P Assessment and Plan (1) Upper abdominal pain: Code(s): R10.10 - Upper abdominal pain, unspecified Status: Acute (2) Nausea: Code(s): R11.0 - Nausea Status: Acute (3) Elevated blood pressure reading: Code(s): R03.0 - Elevated blood-pressure reading, without diagnosis of hypertension Status: Acute (4) Paraplegia: Code(s): G82.20 - Paraplegia, unspecified Status: Chronic (5) Decubitus ulcer of sacral region, stage 3: Code(s): L89.153 - Pressure ulcer of sacral region, stage 3 Status: Acute Plan 1. upper abdominal pain Abdomen/pelvis CT impression Bladder wall thickening, consistent with cystitis cholelithiasis without cholecystitis Small volume ascites Lactic acidosis 4.7 on admission which has resolved now 2. nausea Zofran p.r.n. for nausea 3. elevated blood pressure reading Resolved 4. decubitus ulcer of sacral region, stage 3 Foul odor-> wound culture of decubitus ulcer Wound consult continue to follow wound care recommendations Some purulent discharge, cellulitis around the wound Started on iv Zosyn Wound culture with mixed FR again is on a questionable signal. Growth did not detect the presence of S aureus enzyme a lytic streptococci are Pseudomonas. Antibiotic and switched to Augmentin 5. Sepsis resolved wcc are nl Chronic Conditions -Chronic pain: Continue home medication -Constipation: Continue home medication -Anxiety/depression: Continue home medication -long-term care: Consulted care coordination, patient unhappy with care [facility] and is requesting a new facility if possible Constipation will do milk of magnesium. Enema if needed p.r.n. Subjective Date/time seen: 04/22/23 17:26 Interval history: Pt is 27 year old paraplegia admitted with cystitis and decubitus ulcer patient feels better, wound culture grows Gram-negative bacilli and Gram-positive bacilli pt is being treated with iv zosyn Pt currently from [facility] in [place] pt wants to go to another facility states they do not have wound care in [facility] case management coordinator looking into another placement Has not had any bowel movement for past few days Review of Systems Review of Systems: All systems reviewed & are unremarkable except as noted in HPI and below Exam Narrative: GENERAL: Pleasant, in no acute distress. Well-nourished. - EYES: EOMI. Anicteric. - HENT: Moist mucous membranes. - LUNGS: Clear to auscultation bilaterally, no wheezing, rhonchi, or rales. - CARDIOVASCULAR: Regular rate and rhythm. No murmur. No JVD. - ABDOMEN: Soft, non-tender and non-distended. No palpable masses. - EXTREMITIES: No edema. Peripheral pulses 2+. Non-tender. - NEUROLOGIC: No focal neurological deficits. CN II-XII grossly intact. - PSYCHIATRIC: Awake, Alert and oriented x 3. Appropriate mood and affect. - SKIN: Stage IV sacral decubitus ulcer, some purulent discharge, - LYMPH: No cervical lymphadenopathy. Objective Data Vital Signs Vital Signs: Vital Signs - 24 hr 04/21/23 19:44 04/21/23 20:00 04/21/23 23:39 Temperature 98.3 F 98.2 F Pulse Rate 81 85 Respiratory Rate 17 17 Blood Pressure 104/62 104/62 Pulse Oximetry 99 99 Oxygen Delivery Room Air 04/22/23 03:45 04/22/23 08:00 04/22/23 15:10 Temperature 97.4 F L 98 F Pulse Rate 88 78 Respiratory Rate 17 16 Blood Pressure 107/75 104/61 Pulse Oximetry 98 100 Oxygen Delivery Room Air Intake/Output Intake/Output: Intake & Output 04/19/23 04/20/23 04/21/23 04/22/23 23:59 23:59 23:59 23:59 Intake Total 6071 276 9347 630 Output Total 3700 4350 2900 1550 Balance -6650 -9242 524 -920 Meds/Results Medications: Active Medications Generic Name Dose Route Start Last Admin Trade Name Freq PRN Reason Stop Dose Admin Acetaminophen 650 mg 04/17/23 17:16 04/19/23 19:41 Acetaminophen 325 Mg Tablet PO 650 mg Q4H
[2023-04-22 18:16] VITALS: BP 104/59; PULSE 81; RESP 16; TEMP 36.4; O2SAT 99
[2023-04-22] MEDS: MAGNESIUM HYDROXIDE SUSP 30 ML UDC PO (18:39)
[2023-04-22 19:52] VITALS: BP 98/58; PULSE 84; RESP 18; TEMP 36.9; O2SAT 100
[2023-04-22] MEDS: MIRTAZAPINE 15 MG TABLET PO (20:04)
[2023-04-22] MEDS: DULoxetine HCL 60 MG CAPSULE.DR PO (20:04)
[2023-04-23] VITALS (8 sets, daily range): BP systolic 96–117; BP diastolic 61–80; PULSE 62–81; RESP 14–18; TEMP 36.1–37.2; O2SAT 96–100
[2023-04-23] MEDS: oxyCODONE HCL (*CRX) 5 MG TAB IR PO ×2 (00:42→20:57)
[2023-04-23] MEDS: MAGNESIUM HYDROXIDE SUSP 30 ML UDC PO (08:51)
[2023-04-23] MEDS: LIDOCAINE 5% PATCH 1 PATCH TRANSDERM (08:51)
[2023-04-23] MEDS: MIDODRINE HCL 2.5 MG TABLET 5 MG PO (08:52)
[2023-04-23] MEDS: AMOXICILLIN/CLAVULANATE K 875-125 MG TAB 1 TABLET PO ×2 (08:52→16:34)
[2023-04-23] MEDS: PREGABALIN (*CRX) 50 MG CAPSULE 100 MG PO ×2 (08:52→16:34)
[2023-04-23] MEDS: PANTOPRAZOLE 40 MG TABLET PO (08:52)
[2023-04-23] MEDS: polyethylene glycoL 3350 17 GM POWD.PACK PO (08:52)
[2023-04-23] MEDS: FERROUS SULFATE 325 MG TABLET DR PO (08:52)
[2023-04-23] MEDS: DOCUSATE SODIUM 100 MG CAPSULE PO ×2 (08:52→20:57)
[2023-04-23] MEDS: THERAPEUTIC MULTIVITAMINS/MINERALS TAB (*BKC) 1 TABLET PO (08:53)
[2023-04-23] MEDS: ASCORBIC ACID 250 MG TABLET PO ×2 (08:53→16:34)
[2023-04-23] MEDS: BACLOFEN 5 MG TABLET PO ×3 (08:53→16:34)
[2023-04-23] MEDS: SILVERGEL (ELTA) 45 ML 1 APPLIC TOPICAL (08:53)
[2023-04-23] MEDS: hydrOXYzine HCL 25 MG TABLET PO (08:53)
--- NOTE | 2023-04-23 14:59 | PM.IMPN ---
Progress Note: A&P Assessment and Plan (1) Upper abdominal pain: Code(s): R10.10 - Upper abdominal pain, unspecified Status: Acute (2) Nausea: Code(s): R11.0 - Nausea Status: Acute (3) Elevated blood pressure reading: Code(s): R03.0 - Elevated blood-pressure reading, without diagnosis of hypertension Status: Acute (4) Paraplegia: Code(s): G82.20 - Paraplegia, unspecified Status: Chronic (5) Decubitus ulcer of sacral region, stage 3: Code(s): L89.153 - Pressure ulcer of sacral region, stage 3 Status: Acute Plan 1. upper abdominal pain Abdomen/pelvis CT impression Bladder wall thickening, consistent with cystitis cholelithiasis without cholecystitis Small volume ascites Lactic acidosis 4.7 on admission which has resolved now 2. nausea Zofran p.r.n. for nausea 3. elevated blood pressure reading Resolved 4. decubitus ulcer of sacral region, stage 3 Foul odor-> wound culture of decubitus ulcer Wound consult continue to follow wound care recommendations Some purulent discharge, cellulitis around the wound Started on iv Zosyn Wound culture with mixed FR again is on a questionable signal. Growth did not detect the presence of S aureus enzyme a lytic streptococci are Pseudomonas. IV antibiotics switched to Augmentin Previous culture with MRSA Klebsiella Acinetobacter. Discussed with ID regarding coverage for these back to coming back with possible worsening of the wound infection the overall wound has decreased in size. Will touch base with wound care nurse. Started on minocycline 200 mg b.i.d. for coverage for Acinetobacter. Minocycline will also have some coverage for Klebsiella. current wound culture did not grow Gram-positive cocci likely grow any to cover for MRSA. Will give at least 7-10 days course of these antibiotics. Continue wound care optimize the nursing facility. 5. Sepsis resolved wcc are nl Chronic Conditions -Chronic pain: Continue home medication -Constipation: Continue home medication -Anxiety/depression: Continue home medication -long-term care: Consulted care coordination, patient unhappy with care [facility] and is requesting a new facility if possible Constipation will do milk of magnesium. Enema if needed p.r.n. Subjective Date/time seen: 04/23/23 14:59 Interval history: Pt is 27 year old paraplegia admitted with cystitis and decubitus ulcer patient feels better, wound culture grows Gram-negative bacilli and Gram-positive bacilli pt is being treated with iv zosyn Pt currently from [facility] in [place] pt wants to go to another facility states they do not have wound care in [facility] employment case manager looking into another placement Has not had any bowel movement for past few days 04/23/2023: Complains of right arm pain which is chronic. Uncooperative on examination today. Discussed with Infectious Disease pharmacist. Wound pictures reviewed Review of Systems Review of Systems: All systems reviewed & are unremarkable except as noted in HPI and below Exam Narrative: GENERAL: Non cooperative in no acute distress. Well-nourished. - EYES: EOMI. Anicteric. - HENT: Moist mucous membranes. - LUNGS: Clear to auscultation bilaterally, no wheezing, rhonchi, or rales. - CARDIOVASCULAR: Regular rate and rhythm. No murmur. No JVD. - ABDOMEN: Soft, non-tender and non-distended. No palpable masses. - EXTREMITIES: No edema. Peripheral pulses 2+. Non-tender. - NEUROLOGIC: No focal neurological deficits. CN II-XII grossly intact. - PSYCHIATRIC: Awake, Alert and oriented x 3. Appropriate mood and affect. - SKIN: Stage IV sacral decubitus ulcer, some purulent discharge, - LYMPH: No cervical lymphadenopathy. Objective Data Vital Signs Vital Signs: Vital Signs - 24 hr 04/22/23 15:10 04/22/23 18:16 04/22/23 19:52 Temperature 98 F 97.5 F L 98.4 F Pulse Rate 78 81 84 Respirator
[2023-04-23] MEDS: ALPRAZolam (*CRX) 0.5 MG TABLET PO (20:57)
[2023-04-23] MEDS: DULoxetine HCL 60 MG CAPSULE.DR PO (20:57)
[2023-04-23] MEDS: MINOCYCLINE HCL 100 MG CAPSULE 200 MG PO (20:57)
[2023-04-23] MEDS: MIRTAZAPINE 15 MG TABLET PO (20:57)
[2023-04-24 04:00] VITALS: BP 112/76; PULSE 67; RESP 17; TEMP 35.5; O2SAT 99
[2023-04-24 08:00] VITALS: BP 118/73; PULSE 71; RESP 16; TEMP 36.4; O2SAT 100
[2023-04-24] MEDS: LIDOCAINE 5% PATCH 1 PATCH TRANSDERM (08:28)
[2023-04-24] MEDS: MAGNESIUM HYDROXIDE SUSP 30 ML UDC PO (08:28)
[2023-04-24] MEDS: PREGABALIN (*CRX) 50 MG CAPSULE 100 MG PO ×2 (08:29→18:12)
[2023-04-24] MEDS: polyethylene glycoL 3350 17 GM POWD.PACK PO (08:29)
[2023-04-24] MEDS: hydrOXYzine HCL 25 MG TABLET PO (08:29)
[2023-04-24] MEDS: MIDODRINE HCL 2.5 MG TABLET 5 MG PO (08:29)
[2023-04-24] MEDS: MINOCYCLINE HCL 100 MG CAPSULE 200 MG PO ×2 (08:29→20:53)
[2023-04-24] MEDS: DOCUSATE SODIUM 100 MG CAPSULE PO ×2 (08:29→20:53)
[2023-04-24] MEDS: PANTOPRAZOLE 40 MG TABLET PO (08:29)
[2023-04-24] MEDS: THERAPEUTIC MULTIVITAMINS/MINERALS TAB (*BKC) 1 TABLET PO (08:29)
[2023-04-24] MEDS: FERROUS SULFATE 325 MG TABLET DR PO (08:29)
[2023-04-24] MEDS: AMOXICILLIN/CLAVULANATE K 875-125 MG TAB 1 TABLET PO ×2 (08:29→18:12)
[2023-04-24] MEDS: BACLOFEN 5 MG TABLET PO ×3 (08:29→18:12)
[2023-04-24] MEDS: ASCORBIC ACID 250 MG TABLET PO ×2 (08:29→18:12)
[2023-04-24] MEDS: SILVERGEL (ELTA) 45 ML 1 APPLIC TOPICAL (08:30)
[2023-04-24] MEDS: oxyCODONE HCL (*CRX) 5 MG TAB IR PO ×3 (08:38→20:53)
[2023-04-24 12:00] VITALS: BP 114/76; PULSE 64; RESP 16; TEMP 36.8; O2SAT 98
--- NOTE | 2023-04-24 12:02 | PM.IMPN ---
Progress Note: A&P Assessment and Plan (1) Upper abdominal pain: Code(s): R10.10 - Upper abdominal pain, unspecified Status: Acute (2) Nausea: Code(s): R11.0 - Nausea Status: Acute (3) Elevated blood pressure reading: Code(s): R03.0 - Elevated blood-pressure reading, without diagnosis of hypertension Status: Acute (4) Paraplegia: Code(s): G82.20 - Paraplegia, unspecified Status: Chronic (5) Decubitus ulcer of sacral region, stage 3: Code(s): L89.153 - Pressure ulcer of sacral region, stage 3 Status: Acute Plan 1. upper abdominal pain Abdomen/pelvis CT impression Bladder wall thickening, consistent with cystitis cholelithiasis without cholecystitis Small volume ascites Lactic acidosis 4.7 on admission which has resolved now 2. nausea Zofran p.r.n. for nausea 3. elevated blood pressure reading Resolved 4. decubitus ulcer of sacral region, stage 3 Foul odor-> wound culture of decubitus ulcer Wound consult continue to follow wound care recommendations Some purulent discharge, cellulitis around the wound Started on iv Zosyn Wound culture with mixed FR again is on a questionable signal. Growth did not detect the presence of S aureus enzyme a lytic streptococci are Pseudomonas. IV antibiotics switched to Augmentin Previous culture with MRSA Klebsiella Acinetobacter. Discussed with ID regarding coverage for these back to coming back with possible worsening of the wound infection the overall wound has decreased in size. Discussed with wound nurse. Started on minocycline 200 mg b.i.d. for coverage for Acinetobacter. Minocycline will also have some coverage for Klebsiella. current wound culture did not grow Gram-positive cocci likely grow any to cover for MRSA. Will give at least 7-10 days course of these antibiotics. Continue wound care optimize the nursing facility. 5. Sepsis resolved wcc are nl Chronic Conditions -Chronic pain: Continue home medication -Constipation: Continue home medication -Anxiety/depression: Continue home medication -long-term care: Consulted care coordination, patient unhappy with care [facility] and is requesting a new facility if possible Constipation will do milk of magnesium. Enema if needed p.r.n. Subjective Date/time seen: 04/24/23 12:02 Interval history: Pt is 27 year old paraplegia admitted with cystitis and decubitus ulcer patient feels better, wound culture grows Gram-negative bacilli and Gram-positive bacilli pt is being treated with iv zosyn Pt currently from [facility] in [place] pt wants to go to another facility states they do not have wound care in [facility] medical case worker looking into another placement Has not had any bowel movement for past few days 04/23/2023: Complains of right arm pain which is chronic. Uncooperative on examination today. Discussed with Infectious Disease pharmacist. Wound pictures reviewed 04/24/2023: No overnight events. Right arm pain is chronic. Vitals stable. Labs reviewed. Accepted at [facility] Review of Systems Review of Systems: All systems reviewed & are unremarkable except as noted in HPI and below Exam Narrative: GENERAL: Non cooperative in no acute distress. Well-nourished. - EYES: EOMI. Anicteric. - HENT: Moist mucous membranes. - LUNGS: Clear to auscultation bilaterally, no wheezing, rhonchi, or rales. - CARDIOVASCULAR: Regular rate and rhythm. No murmur. No JVD. - ABDOMEN: Soft, non-tender and non-distended. No palpable masses. - EXTREMITIES: No edema. Peripheral pulses 2+. Non-tender. - NEUROLOGIC: No focal neurological deficits. CN II-XII grossly intact. - PSYCHIATRIC: Awake, Alert and oriented x 3. Appropriate mood and affect. - SKIN: Stage IV sacral decubitus ulcer, some purulent discharge, - LYMPH: No cervical lymphadenopathy. Objective Data Vital Signs Vital Signs: Vital Sig
[2023-04-24 19:56] VITALS: BP 113/76; PULSE 76; RESP 16; TEMP 36.8; O2SAT 100
[2023-04-24 20:00] VITALS: PULSE 76; RESP 16; O2SAT 100
[2023-04-24] MEDS: MIRTAZAPINE 15 MG TABLET PO (20:53)
[2023-04-24] MEDS: DULoxetine HCL 60 MG CAPSULE.DR PO (20:53)
[2023-04-24] MEDS: ALPRAZolam (*CRX) 0.5 MG TABLET PO (20:57)
[2023-04-25 02:18] VITALS: BP 132/86; PULSE 94; RESP 14; TEMP 36.6; O2SAT 99
[2023-04-25 06:52] VITALS: BP 110/74; PULSE 78; RESP 16; TEMP 36.6; O2SAT 100
[2023-04-25] MEDS: MINOCYCLINE HCL 100 MG CAPSULE 200 MG PO ×2 (09:39→20:46)
[2023-04-25] MEDS: MAGNESIUM HYDROXIDE SUSP 30 ML UDC PO (09:39)
[2023-04-25] MEDS: polyethylene glycoL 3350 17 GM POWD.PACK PO (09:39)
[2023-04-25] MEDS: ASCORBIC ACID 250 MG TABLET PO ×2 (09:40→18:25)
[2023-04-25] MEDS: DOCUSATE SODIUM 100 MG CAPSULE PO ×2 (09:40→20:46)
[2023-04-25] MEDS: PREGABALIN (*CRX) 50 MG CAPSULE 100 MG PO ×2 (09:40→18:25)
[2023-04-25] MEDS: FERROUS SULFATE 325 MG TABLET DR PO (09:41)
[2023-04-25] MEDS: MIDODRINE HCL 2.5 MG TABLET 5 MG PO (09:42)
[2023-04-25] MEDS: PANTOPRAZOLE 40 MG TABLET PO (09:42)
[2023-04-25] MEDS: THERAPEUTIC MULTIVITAMINS/MINERALS TAB (*BKC) 1 TABLET PO (09:42)
[2023-04-25] MEDS: hydrOXYzine HCL 25 MG TABLET PO (09:42)
[2023-04-25] MEDS: AMOXICILLIN/CLAVULANATE K 875-125 MG TAB 1 TABLET PO ×2 (09:43→18:24)
[2023-04-25] MEDS: LIDOCAINE 5% PATCH 1 PATCH TRANSDERM (09:43)
[2023-04-25] MEDS: SILVERGEL (ELTA) 45 ML 1 APPLIC TOPICAL (09:44)
--- NOTE | 2023-04-25 12:10 | PM.IMPN ---
Progress Note: A&P Assessment and Plan (1) Upper abdominal pain: Code(s): R10.10 - Upper abdominal pain, unspecified Status: Acute (2) Nausea: Code(s): R11.0 - Nausea Status: Acute (3) Elevated blood pressure reading: Code(s): R03.0 - Elevated blood-pressure reading, without diagnosis of hypertension Status: Acute (4) Paraplegia: Code(s): G82.20 - Paraplegia, unspecified Status: Chronic (5) Decubitus ulcer of sacral region, stage 3: Code(s): L89.153 - Pressure ulcer of sacral region, stage 3 Status: Acute Plan 1. upper abdominal pain Abdomen/pelvis CT impression Bladder wall thickening, consistent with cystitis cholelithiasis without cholecystitis Small volume ascites Lactic acidosis 4.7 on admission which has resolved now Will recheck abdominal CT because of ongoing abdominal discomfort bloating sensation and pain that he complains of This could very well be due to constipation. Continue bowel regimen for this. 2. nausea Zofran p.r.n. for nausea 3. elevated blood pressure reading Resolved 4. decubitus ulcer of sacral region, stage 3 Foul odor-> wound culture of decubitus ulcer Wound consult continue to follow wound care recommendations Some purulent discharge, cellulitis around the wound Started on iv Zosyn Wound culture with mixed FR again is on a questionable signal. Growth did not detect the presence of S aureus enzyme a lytic streptococci are Pseudomonas. IV antibiotics switched to Augmentin Previous culture with MRSA Klebsiella Acinetobacter. Discussed with ID regarding coverage for these back to coming back with possible worsening of the wound infection the overall wound has decreased in size. Discussed with wound nurse. Started on minocycline 200 mg b.i.d. for coverage for Acinetobacter. Minocycline will also have some coverage for Klebsiella. current wound culture did not grow Gram-positive cocci likely grow any to cover for MRSA. Will give at least 7-10 days course of these antibiotics. Continue wound care optimize the nursing facility. 5. Sepsis resolved wcc are nl Chronic Conditions -Chronic pain: Continue home medication -Constipation: Continue home medication -Anxiety/depression: Continue home medication -long-term care: Consulted care coordination, patient unhappy with care [facility] and is requesting a new facility if possible # constipation will do milk of magnesium. Enema if needed p.r.n. Subjective Date/time seen: 04/25/23 12:10 Interval history: Pt is 27 year old paraplegia admitted with cystitis and decubitus ulcer patient feels better, wound culture grows Gram-negative bacilli and Gram-positive bacilli pt is being treated with iv zosyn Pt currently from [facility] in [place] pt wants to go to another facility states they do not have wound care in [facility] leather case finisher looking into another placement Has not had any bowel movement for past few days 04/23/2023: Complains of right arm pain which is chronic. Uncooperative on examination today. Discussed with Infectious Disease pharmacist. Wound pictures reviewed 04/24/2023: No overnight events. Right arm pain is chronic. Vitals stable. Labs reviewed. Accepted at [facility] 04/25/2023: Complains of abdominal discomfort no nausea has not had any bowel movement. No fever chills. Review of Systems Review of Systems: All systems reviewed & are unremarkable except as noted in HPI and below Exam Narrative: GENERAL: Non cooperative in no acute distress. Well-nourished. - EYES: EOMI. Anicteric. - HENT: Moist mucous membranes. - LUNGS: Clear to auscultation bilaterally, no wheezing, rhonchi, or rales. - CARDIOVASCULAR: Regular rate and rhythm. No murmur. No JVD. - ABDOMEN: Soft, non-tender and non-distended. No palpable masses. - EXTREMITIES: No edema. Peripheral pulses 2+. Non-tender. - N
[2023-04-25] MEDS: BACLOFEN 5 MG TABLET PO ×2 (12:40→18:25)
[2023-04-25] MEDS: oxyCODONE HCL (*CRX) 5 MG TAB IR PO ×2 (12:40→20:46)
[2023-04-25 16:00] VITALS: BP 114/75; PULSE 91; RESP 16; TEMP 36.3; O2SAT 100
[2023-04-25 20:00] VITALS: PULSE 83; RESP 16; O2SAT 99
[2023-04-25] MEDS: ALPRAZolam (*CRX) 0.5 MG TABLET PO (20:46)
[2023-04-25] MEDS: DULoxetine HCL 60 MG CAPSULE.DR PO (20:47)
[2023-04-25] MEDS: MIRTAZAPINE 15 MG TABLET PO (20:47)
[2023-04-25 21:00] LABS: Basophils Absolute Auto 0.1 K/mm3 (0.0-0.1); Basophils Percent Auto 1.7 % (0.2-1.2); Eosinophils Absolute Auto 0.4 K/mm3 (0-0.3); Eosinophils Percent Auto 5.7 % (0-4.4); Hematocrit 36.4 % (42.0-52.0); Hemoglobin 11.9 g/dL (14.0-18.0); Immature Granulocyte Absolute 0.01 K/mm3 (0.00-0.031); Immature Granulocyte Percent A 0.2 % (0-0.5); Lymphocytes Absolute Auto 2.92 K/mm3 (0.9-3.2); Mean Corpuscular HGB Conc 32.7 g/dl (32-36); Mean Corpuscular Hemoglobin 22.5 pg (26-34); Mean Corpuscular Volume 68.9 fl (80-100); Mean Platelet Volume 10.1 fl (7.4-10.4); Monocytes Absolute Auto 0.7 K/mm3 (0.1-0.6); Monocytes Percent Auto 10.9 % (2.6-8.5); Neutrophils Absolute Auto 2.4 K/mm3 (1.3-6.7); Neutrophils Percent Auto 36.5 % (45.5-73.1); Nucleated Red Blood Cells Perc 0.3 % (0.0-0.2); Platelet Count Result 467 k/mm3 (150-375); Red Blood Count 5.28 M/mm3 (4.6-6.20); Red Cell Distribution Width 21.7 % (11.5-14.5); White Blood Count 6.5 K/mm3 (4.5-10.0)
[2023-04-25 21:10] LABS: Anisocytosis 1+ (NORMAL); Platelet Estimate Increased (Adequate)
[2023-04-25 21:11] LABS: Microcytosis 1+ (NORMAL); Ovalocytes 1+ (NORMAL); Schistocytes None Seen (NORMAL); Target Cells 2+ (NORMAL)
[2023-04-25 21:13] VITALS: BP 100/64; PULSE 87; RESP 16; TEMP 36.7; O2SAT 100
[2023-04-25 21:19] LABS: Alanine Aminotransferase 25 U/L (6-50); Albumin Level 4.3 g/dL (3.5-5.1); Alkaline Phosphatase 103 U/L (38-126); Anion Gap 10 mmol/L (8-16); Aspartate Amino Transferase 27 U/L (17-59); Bilirubin,Total 0.6 mg/dL (0.2-1.3); Blood Urea Nitrogen 17 mg/dL (9-20); Calcium 9.7 mg/dL (8.4-10.2); Carbon Dioxide 25 mmol/L (22-30); Chloride 103 mmol/L (98-107); Estimated CRCL calculation 205 ml/min; Estimated Glomerular Filt Rate > 60; Glucose 87 mg/dL (65-110); Magnesium 2.1 mg/dL (1.6-2.3); Potassium 3.9 mmol/L (3.4-5.0); Sodium 138 mmol/L (137-145)
[2023-04-26 00:26] VITALS: BP 106/67; PULSE 77; RESP 16; TEMP 36.5; O2SAT 99
[2023-04-26] MEDS: THERAPEUTIC MULTIVITAMINS/MINERALS TAB (*BKC) 1 TABLET PO (09:45)
[2023-04-26] MEDS: DOCUSATE SODIUM 100 MG CAPSULE PO ×2 (09:45→20:56)
[2023-04-26] MEDS: BACLOFEN 5 MG TABLET PO ×3 (09:46→17:32)
[2023-04-26] MEDS: MINOCYCLINE HCL 100 MG CAPSULE 200 MG PO ×2 (09:47→20:56)
[2023-04-26] MEDS: PREGABALIN (*CRX) 50 MG CAPSULE 100 MG PO ×2 (09:47→17:31)
[2023-04-26] MEDS: AMOXICILLIN/CLAVULANATE K 875-125 MG TAB 1 TABLET PO ×2 (09:47→17:31)
[2023-04-26] MEDS: FERROUS SULFATE 325 MG TABLET DR PO (09:51)
[2023-04-26] MEDS: hydrOXYzine HCL 25 MG TABLET PO (09:51)
[2023-04-26] MEDS: PANTOPRAZOLE 40 MG TABLET PO (09:51)
[2023-04-26] MEDS: MIDODRINE HCL 2.5 MG TABLET 5 MG PO (09:51)
[2023-04-26] MEDS: polyethylene glycoL 3350 17 GM POWD.PACK PO (09:52)
[2023-04-26] MEDS: LIDOCAINE 5% PATCH 1 PATCH TRANSDERM (09:52)
[2023-04-26] MEDS: MAGNESIUM HYDROXIDE SUSP 30 ML UDC PO (09:52)
[2023-04-26] MEDS: ASCORBIC ACID 250 MG TABLET PO ×2 (09:52→17:32)
[2023-04-26 09:57] VITALS: BP 124/84; PULSE 80; RESP 16; TEMP 36.6; O2SAT 99
[2023-04-26] MEDS: SILVERGEL (ELTA) 45 ML 1 APPLIC TOPICAL (09:58)
--- NOTE | 2023-04-26 11:46 | PCNFU ---
Nutrition Follow-Up Complete: Increased nutrient needs related to altered skin integrity as evidenced by noted pressure injuries goal: PO intake 75% of meals Patient is meeting current goal. No new goal. Pt current nutrition is Regular. Last recorded weight is 91.4 kg, no new weight to report. Bowel Motility:+BM reported 04/25 Labs Reviewed:Cr 0.5.Hct 36.4,Hgb 11.9 Meds Noted:Remeron, MVI, Protonix, Miralax Skin:Left Heel stage II-right hip, right state III, stage IV-sacrum. Additional Notes: Patient remains on a regular diet. Tolerating diet 50-100% of meals. Protein Modular for wound healing of Alex BID providing 90 kcals and 2.5 gms protein. Diet supplements of Enlive TID providing additional 350 kcals and 20 gms protein. Agree with diet orders. Monitor intake, wt, labs, skin. Follow up in 7 days.
[2023-04-26 12:00] VITALS: BP 118/77; PULSE 73; RESP 16; TEMP 36.5; O2SAT 99
[2023-04-26] MEDS: oxyCODONE HCL (*CRX) 5 MG TAB IR PO ×3 (12:59→20:54)
--- NOTE | 2023-04-26 14:10 | PM.IMPN ---
Progress Note: A&P Assessment and Plan (1) Upper abdominal pain: Code(s): R10.10 - Upper abdominal pain, unspecified Status: Acute (2) Nausea: Code(s): R11.0 - Nausea Status: Acute (3) Elevated blood pressure reading: Code(s): R03.0 - Elevated blood-pressure reading, without diagnosis of hypertension Status: Acute (4) Paraplegia: Code(s): G82.20 - Paraplegia, unspecified Status: Chronic (5) Decubitus ulcer of sacral region, stage 3: Code(s): L89.153 - Pressure ulcer of sacral region, stage 3 Status: Acute Plan 1. upper abdominal pain Abdomen/pelvis CT impression Bladder wall thickening, consistent with cystitis cholelithiasis without cholecystitis Small volume ascites Lactic acidosis 4.7 on admission which has resolved now Recheck CT with ongoing constipation. Continue bowel regimen 2. nausea Zofran p.r.n. for nausea 3. elevated blood pressure reading Resolved 4. decubitus ulcer of sacral region, stage 3 Foul odor-> wound culture of decubitus ulcer Wound consult continue to follow wound care recommendations Some purulent discharge, cellulitis around the wound Started on iv Zosyn Wound culture with mixed FR again is on a questionable signal. Growth did not detect the presence of S aureus enzyme a lytic streptococci are Pseudomonas. IV antibiotics switched to Augmentin Previous culture with MRSA Klebsiella Acinetobacter. Discussed with ID regarding coverage for these back to coming back with possible worsening of the wound infection the overall wound has decreased in size. Discussed with wound nurse. Started on minocycline 200 mg b.i.d. for coverage for Acinetobacter. Minocycline will also have some coverage for Klebsiella. current wound culture did not grow Gram-positive cocci likely grow any to cover for MRSA. Will give at least 7-10 days course of these antibiotics. Continue wound care optimize the nursing facility. 5. Sepsis resolved wcc are nl Chronic Conditions -Chronic pain: Continue home medication -Constipation: Continue home medication -Anxiety/depression: Continue home medication -long-term care: Consulted care coordination, patient unhappy with care [facility] and is requesting a new facility if possible # constipation will do milk of magnesium. Enema if needed p.r.n. Subjective Date/time seen: 04/26/23 14:10 Interval history: Pt is 27 year old paraplegia admitted with cystitis and decubitus ulcer patient feels better, wound culture grows Gram-negative bacilli and Gram-positive bacilli pt is being treated with iv zosyn Pt currently from [facility] in [place] pt wants to go to another facility states they do not have wound care in [facility] business case analyst looking into another placement Has not had any bowel movement for past few days 04/23/2023: Complains of right arm pain which is chronic. Uncooperative on examination today. Discussed with Infectious Disease pharmacist. Wound pictures reviewed 04/24/2023: No overnight events. Right arm pain is chronic. Vitals stable. Labs reviewed. Accepted at [facility] 04/25/2023: Complains of abdominal discomfort no nausea has not had any bowel movement. No fever chills. 04/26/2023: No fever chills. Complains of right arm pain which is chronic. This is from the injury due to concern in the past. Abdominal discomfort persists. Nursing reports having multiple bowel movements Review of Systems Review of Systems: All systems reviewed & are unremarkable except as noted in HPI and below Exam Narrative: GENERAL: Non cooperative in no acute distress. Well-nourished. - EYES: EOMI. Anicteric. - HENT: Moist mucous membranes. - LUNGS: Clear to auscultation bilaterally, no wheezing, rhonchi, or rales. - CARDIOVASCULAR: Regular rate and rhythm. No murmur. No JVD. - ABDOMEN: Soft, non-tender and non-distended. No p
[2023-04-26 16:00] VITALS: BP 100/61; PULSE 82; RESP 16; TEMP 37.2; O2SAT 100
[2023-04-26 19:24] VITALS: BP 112/71; PULSE 93; RESP 18; TEMP 36.8; O2SAT 99
[2023-04-26] MEDS: DULoxetine HCL 60 MG CAPSULE.DR PO (20:56)
[2023-04-26] MEDS: ALPRAZolam (*CRX) 0.5 MG TABLET PO (20:56)
[2023-04-26] MEDS: MIRTAZAPINE 15 MG TABLET PO (20:56)
[2023-04-27] VITALS: BP 129/76; PULSE 83; RESP 18; TEMP 36.8; O2SAT 96
[2023-04-27 04:00] VITALS: BP 116/72; PULSE 84; RESP 18; TEMP 36.2; O2SAT 100
--- NOTE | 2023-04-27 10:19 | PM.DS ---
DS: Admitting Diagnosis Discharge Date 04/27/2023 Admitting Diagnosis Abdominal pain/nausea DS: Discharge Diagnosis Discharge Diagnosis (1) Upper abdominal pain: Code(s): R10.10 - Upper abdominal pain, unspecified Status: Acute (2) Nausea: Code(s): R11.0 - Nausea Status: Acute (3) Elevated blood pressure reading: Code(s): R03.0 - Elevated blood-pressure reading, without diagnosis of hypertension Status: Acute (4) Paraplegia: Code(s): G82.20 - Paraplegia, unspecified Status: Chronic (5) Decubitus ulcer of sacral region, stage 3: Code(s): L89.153 - Pressure ulcer of sacral region, stage 3 Status: Acute DS: Summary Hospital Course Hospital Course: 1. upper abdominal pain Abdomen/pelvis CT impression Bladder wall thickening, consistent with cystitis cholelithiasis without cholecystitis Small volume ascites Lactic acidosis 4.7 on admission which has resolved now Recheck CT with ongoing constipation.? Continue bowel regimen 2. nausea Zofran p.r.n. for nausea 3. elevated blood pressure reading Resolved 4. decubitus ulcer of sacral region, stage 3 Foul odor-> wound culture of decubitus ulcer Wound consult continue to follow wound care recommendations? Some purulent discharge, cellulitis around the woundStarted on iv Zosyn Wound culture with mixed FR again is on a questionable signal.? Growth did not detect the presence of S aureus enzyme a lytic streptococci are Pseudomonas. IV antibiotics switched to Augmentin Previous culture with MRSA Klebsiella Acinetobacter. Discussed with ID regarding coverage for these back to coming back with possible worsening of the wound infection the overall wound has decreased in size.? Discussed with wound nurse.? Started on minocycline 200 mg b.i.d. for coverage for Acinetobacter.? Minocycline will also have some coverage for Klebsiella.? current wound culture did not grow Gram-positive cocci likely grow any to cover for MRSA.? Will give at least 7-10 days course of these antibiotics.? Continue wound care optimize the nursing facility. 5. Sepsis? resolved wcc are nl Chronic Conditions -Chronic pain:? Continue home medication -Constipation:? Continue home medication -Anxiety/depression:? Continue home medication -long-term care:? Consulted care coordination, patient unhappy with [facility] and is requesting a new facility if possible # constipation will do milk of magnesium.? Enema if needed p.r.n. Time Spent with Patient Time attestation: Total time spent providing and/or coordinating discharge services: Exam Narrative: GENERAL: Non cooperative in no acute distress. Well-nourished. - EYES: EOMI. Anicteric. - HENT: Moist mucous membranes. - LUNGS: Clear to auscultation bilaterally, no wheezing, rhonchi, or rales. - CARDIOVASCULAR: Regular rate and rhythm. No murmur. No JVD. - ABDOMEN: Soft, non-tender and non-distended. No palpable masses. - EXTREMITIES: No edema. Peripheral pulses 2+. Non-tender. - NEUROLOGIC: No focal neurological deficits. CN II-XII grossly intact. - PSYCHIATRIC: Awake, Alert and oriented x 3. Appropriate mood and affect. - SKIN: Stage IV sacral decubitus ulcer, some purulent discharge, - LYMPH: No cervical lymphadenopathy. DS: Data Imaging Radiologist's impression: ITS Impressions Abdomen/Pelvis CT 04/17/23 11:41 IMPRESSION: 1. Bladder wall thickening, consistent with cystitis. 2. Cholelithiasis without cholecystitis. 3. Small volume of ascites. Abdomen/Pelvis CT 04/26/23 06:16 IMPRESSION: 1. Large volume of stool in the colon with distention of the rectum. 2. Sacral decubitus ulcer. Chronic sacral osteomyelitis, stable from 02/14/2023. 3. Sclerosis of the pelvic bones and proximal femora, stable from 02/14/2023, likely osteonecrosis. Discharge Plan Discharge Attending physician on discharge: Kirk Saxena Consulting providers: Ronaldo
--- NOTE | 2023-04-27 11:08 | PC.NURSE ---
Patient refused to take AM medications this morning, RN reassessed at 1100 and patient is now willing to take medications.
[2023-04-27] MEDS: AMOXICILLIN/CLAVULANATE K 875-125 MG TAB 1 TABLET PO (11:33)
[2023-04-27] MEDS: DOCUSATE SODIUM 100 MG CAPSULE PO (11:33)
[2023-04-27] MEDS: MIDODRINE HCL 2.5 MG TABLET 5 MG PO (11:33)
[2023-04-27] MEDS: PANTOPRAZOLE 40 MG TABLET PO (11:34)
[2023-04-27] MEDS: MINOCYCLINE HCL 100 MG CAPSULE 200 MG PO (11:34)
[2023-04-27] MEDS: PREGABALIN (*CRX) 50 MG CAPSULE 100 MG PO (11:34)
[2023-04-27] MEDS: THERAPEUTIC MULTIVITAMINS/MINERALS TAB (*BKC) 1 TABLET PO (11:34)
[2023-04-27] MEDS: ASCORBIC ACID 250 MG TABLET PO (11:35)
[2023-04-27] MEDS: FERROUS SULFATE 325 MG TABLET DR PO (11:35)
[2023-04-27] MEDS: hydrOXYzine HCL 25 MG TABLET PO (11:35)
[2023-04-27] MEDS: polyethylene glycoL 3350 17 GM POWD.PACK PO (11:36)
[2023-04-27] MEDS: LIDOCAINE 5% PATCH 1 PATCH TRANSDERM (11:36)
[2023-04-27] MEDS: SILVERGEL (ELTA) 45 ML 1 APPLIC TOPICAL (11:36)
[2023-04-27] MEDS: MAGNESIUM HYDROXIDE SUSP 30 ML UDC PO (11:36)
[2023-04-27] MEDS: BACLOFEN 5 MG TABLET PO (11:39)
[2023-04-27 11:53] VITALS: BP 119/73; PULSE 76; RESP 16; TEMP 36.4; O2SAT 100
[2023-04-27 13:15] LABS: SARS-CoV-2 RNA PCR Negative (Negative)
[2023-04-27] MEDS: ALPRAZolam (*CRX) 0.5 MG TABLET PO (14:54)
[2023-04-27 15:53] VITALS: BP 116/71; PULSE 64; RESP 12; TEMP 36.3; O2SAT 100
== END 2023-04-27 16:55 | DRG 871 ==
LOC: ANHED 09:10 → ANH3MEDSUR 13:31 → ANH2MED 13:48
PROVIDERS: Emergency Medicine; Family Medicine; Student in an Organized Health Care Education/Training Program; Admitting Provider Internal Medicine; Emergency Provider Physician Assistant; Visit Provider Internal Medicine
DX: A41.9 Sepsis, unspecified organism (principal); L89.153 Pressure ulcer of sacral region, stage 3; G82.20 Paraplegia, unspecified; E87.21 Acute metabolic acidosis; K59.00 Constipation, unspecified; R03.0 Elevated blood-pressure reading, without diagnosis of hypertension; K80.20 Calculus of gallbladder without cholecystitis without obstruction; T83.021A Displacement of indwelling urethral catheter, initial encounter; R33.8 Other retention of urine; G89.29 Other chronic pain; F41.8 Other specified anxiety disorders; N30.90 Cystitis, unspecified without hematuria; T14.8XXS Other injury of unspecified body region, sequela; W34.00XS Accidental discharge from unspecified firearms or gun, sequela; Z87.891 Personal history of nicotine dependence
CPT/HCPCS: 36415; 74176; 74177; 80048; 80053; 81001; 83605; 83690; 83735; 85025; 85027; 87040; 87070; 87086; 87205; 87635; 87636; 96361; 96365; 96375; 99285; A9270; C9113; G0378; J0696; J2270; J2405; J2543; J7030; J7040; J7120; Q9967